=== PATIENT | female | born 1930 | race Caucasian/White ===

== ENCOUNTER → 2016-09-06 | Outpatient (CLI) | payer MEDICARE ==
[~2016-09-06] MED LIST: /FENT25PA TD; /ONDA4TA OR; /PANT40TA PO; /PREG50CA PO; ACET500C OR; ALPR0.5T3 OR; ASPI1TAB PO; ASPI81TA83 OR; CALC600T7 PO; CALCTAB68 PO; CELE20TA OR; CELE20TA PO; CETI10TA PO; CITA10TA2 PO; CITA10TA5 PO; FELO5TAB OR; FELO5TAB3 PO; FLORCAP10 PO; FLUTISP; GABA100C PO; GABA300C2 PO; GAS X PO; IBUP200C PO; IBUP600T26 OR; IBUP60TA PO; IBUPPOW25 PO; IMIP25TA2 PO; ISOVUE-M 300 61% 15ML VIAL (Q9967) As Ordered ONE; LIDO5TD TD; LIDOCAINE 1% SDV INJ 30 ML VIAL As Ordered ONE; LOPR50TA PO; META800T82 PO; METO25TAB PO; METO50TA4 OR; METOPROLOL TART 25 MG TABLET PO ONE; NEUR300C PO; OYST500T OR; PRIL20CA OR; SENN1TAB2 PO; SOMA350T OR; TYLE325T5 PO; TYLE650T35 PO; VISITAB6 PO; XANA0.25 PO; ZANA4TAB PO; [UNRECOGNIZED DRUG - OTHER]; ambien PO; depression med PO; diazePAM 5 MG TAB As Ordered ONE; fluticasone; methylPREDNISolone SUSP 40 MG/ML (DEPO-medrol) VIAL (J1030) As Ordered ONE
--- NOTE | 2016-09-06 14:07 | REP ---
LUMBAR SPINE SERIES: FOUR VIEWS LIMITED STUDY. HISTORY: Lumbar epidural steroid injection for pain. 20 seconds of fluoroscopy time is reported. FINDINGS: A sequence of four fluoroscopically-obtained intraprocedural spot radiographs of the lumbar spine document needle position and contrast injection associated with lumbar spine epidural injection procedure. Signed by Sagar Siu MD 09/06/2016 02:58 P
--- NOTE | 2016-09-09 02:03 | ECWPNPC ---
PATIENT NAME: SHELBIE CORTEZ : 1930 GENDER: FEMALE VISIT DATE: 09/06/2016 DISCHARGE DATE: 09/06/168 VISIT LOCKED DATE TIME: PHYSICIAN: EVAN ORTEGA RESOURCE: EVAN ORTEGA REASON FOR APPOINTMENT 1. LESI HISTORY OF PRESENT ILLNESS HISTORY OF PRESENT ILLNESS: PAIN THE PATIENT DESCRIBES THE PAIN... FALL RISK SCREENING: SCREENING :NO FALLS IN THE PAST YEAR CURRENT MEDICATIONS TAKING TYLENOL 500 MG TABLET 2 TABLET NEEDED ORALLY 3 TIMES A DAY NEEDED, NOTES: 09-05-16 2100 TAKING IBUPROFEN 200 MG TABLET 3 TABLET NEEDED ORALLY 3 TIMES A DAY NEEDED, NOTES: NONE RECENT TAKING CALCIUM 600 MG TABLET 1 TABLET WITH MEALS ORALLY TWICE A DAY, NOTES: 09-05-161699 TAKING METOPROLOL SUCCINATE ER 25 MG TABLET EXTENDED RELEASE 24 HOUR 1 TABLET ORALLY TWICE A DAY, NOTES: 09-05-161699 TAKING FELODIPINE ER 5 MG TABLET EXTENDED RELEASE 24 HOUR 1 TABLET ORALLY ONCE A DAY, NOTES: 09-06-16 0600 TAKING CITALOPRAM HYDROBROMIDE 10 MG TABLET 1 TABLET ORALLY ONCE A DAY, NOTES: 09-06-161699 TAKING ASPIRIN ADULT LOW STRENGTH 81 MG TABLET DELAYED RELEASE 1 TABLET ORALLY ONCE A DAY, NOTES: 09-05-161699 TAKING VISION FORMULA TABLET 1 TABLET ORALLY DAILY, NOTES: 09-05-161699 TAKING GAS-X 125 MG CAPSULE 1 CAPSULE AFTER MEALS AND AT BEDTIME NEEDED ORALLY FOUR TIMES A DAY, NOTES: NONE TAKING PROBIOTIC CAPSULE 1 TABLET ORALLY DAILY, NOTES: 09-05-16 TAKING GABAPENTIN 100 MG CAPSULE DIRECTED ORALLY THREE TIMES DAILY FOR PAIN, NOTES: 09-05-161699 NOT-TAKING CETIRIZINE HCL 10 MG TABLET 1 TABLET NEEDED ORALLY ONCE A DAY MEDICATION LIST REVIEWED AND RECONCILED WITH THE PATIENT PAST MEDICAL HISTORY TACHYCARDIA SYNCOPE IN 2013 - FIRST DEGREE AV BLOCK GERD HTN SPINAL STENOSIS ANXIETY MILD STROKE ARTHRITIS ALLERGIES MORPHINE SULFATE: HIVES: ALLERGY ENALAPRIL: NAUSEA/VOMITING: ALLERGY ULTRAM: NAUSEA/VOMITING: ALLERGY BENICAR: NAUSEA/VOMITING: ALLERGY CODEINE SULFATE: NAUSEA: ALLERGY CIPROFLOXACIN: NAUSEA: ALLERGY SULFA (FOR ALLERGY USE ONLY): NAUSEA: ALLERGY BACTRIM: NAUSEA: ALLERGY OXYCODONE-ACETAMINOPHEN: NAUSEA/VOMITING: SIDE EFFECTS SOCIAL HISTORY GENERAL: TOBACCO USE ARE YOU A:NONSMOKER LEARNING BARRIERS / SPECIAL NEEDS ORIENTED TO PLAN OF CARE: PATIENT, PAIN MANAGEMENT PATIENT, ORIENTED TO PLAN OF CARE: PATIENT, PAIN MANAGEMENT PATIENT. NEW PATIENT PAIN DIARY TODAY'S VISITNOTES FROM 0-10, WHAT LEVEL IS YOUR PAIN TODAY?0 PAIN CLINIC PFS, CLERGY, PUBLIC HEALTH REFERRALS PFS REFERRAL NEEDED?NO CLERGY REFERRAL NEEDED?NO PUBLIC HEALTH REFERRAL NEEDED?NO WAS THE PROVIDER NOTIFIED OF ANY PERTINENT INFO?NO PFS REFERRAL NEEDED?NO CLERGY REFERRAL NEEDED?NO PUBLIC HEALTH REFERRAL NEEDED?NO WAS THE PROVIDER NOTIFIED OF ANY PERTINENT INFO?NO HOSPITALIZATION/MAJOR DIAGNOSTIC PROCEDURE SEE ABOVE REVIEW OF SYSTEMS CONSTITUTIONAL: ANY CHANGE IN YOUR MEDICAL CONDITION? NO . CHILLS NO . FEVER NO . INFECTION: DO YOU HAVE NEW INFECTIONS? NO . DO YOU HAVE HISTORY OF MRSA? NO . MUSCULOSKELETAL: ANY NEW PATTERNS OF PAIN OR NUMBNESS? NO . GASTROENTEROLOGY: ANY NEW CHANGE IN BOWEL CONTROL? NO . GENITOURINARY: ANY NEW CHANGE IN BLADDER CONTROL? NO . IS THERE A CHANCE YOU COULD BE ? NO . HEMATOLOGY/LYMPH: DO YOU TAKE ANY BLOOD THINNERS? (FOR EXAMPLE- COUMADIN, PLAVIX, AGGRENOX, PLATEL, PRADAXA, OR XARELTO) NO . WHEN WAS YOUR LAST DOSE? DATE: TIME: . NEUROLOGY: HAVE YOU FALLEN IN THE PAST 6 MONTHS? NO . ANY NEW EXTREMITY NUMBNESS OR WEAKNESS? NO . CARDIOLOGY: DO YOU HAVE A PACEMAKER OR DEFIBRILLATOR? NO . RESPIRATORY: HAVE YOU BEEN SICK IN THE PAST WEEK? NO . FEVER NO . FLU LIKE SYMPTOMS? NO . COUGH NO . INTEGUMENTARY: DO YOU HAVE ANY RASHES OR OPEN SORES? NO . ALLERGIC/IMMUNO: ARE YOU ALLERGIC TO SHELLFISH OR IV DYE? NO . ANY NEW ALLERGIES? NO . PSYCHIATRIC: DO YOU HAVE THOUGHTS OF HURTING YOURSELF OR SOMEONE ELSE? NO . ARE YOU ABUSED, NEGLECTED, OR IN AN UNSAFE ENVIRONMENT? NO . ENDOCRINOLOGY: ARE YOU DIABETIC? NO . OTHER: DO YOU NEED ANY PRESCRIPTIONS? NO . IF YES, PLEASE LIST: ____ . ANY NEW PROBLEMS WITH YOUR MEDICATIONS? NO . WHEN DID YOU LAST EAT? 09-05-16 1800 . WHEN DID YOU LAST DRINK? 09-05-16 2200 . WHAT DID YOU LAST DRINK? WATER . NAME OF PERSON DRIVING YOU HOME? MARIA ESTHER GRIFFITH . DO YOU HAVE ANY OTHER QUESTIONS OR CONCERNS NO . REVIEWED BY: PROVIDER: . VITAL SIGNS WT 138 LBS, HT 61 IN, BMI 26.07 INDEX, BP 145/89 MM HG, REPEAT BP 180/92 MM HG, HR 89 /MIN, RR 18 /MIN, TEMP 97.8 F, OXYGEN SAT % 97%, NA INITIALS SC 09:19, REVIEWED BY: CMBP RECHECK AFTER PROCEDURE- R ARM 184/99, L ARM 194/99- 1243 TL. ASSESSMENTS INTERVERTEBRAL DISC DISORDER WITH RADICULOPATHY OF LUMBAR REGION - M51.16 (PRIMARY) PROCEDURES PRE PROCEDURE DIAGNOSIS LUMBAR DISC DISORDER WITH RADICULOPATHY POST PROCEDURE DIAGNOSIS LUMBAR DISC DISORDER WITH RADICULOPATHY PROCEDURE LUMBAR EPIDURAL STEROID INJECTION UNDER FLUOROSCOPIC GUIDANCE SURGEON DR. EVAN ORTEGA RACEHORSE TRAINER NONE ANESTHESIA LOCAL PRE PROCEDURE NOTE THE PATIENT HAS A HISTORY OF CHRONIC LOW BACK PAIN. I EVALUATE THE PATIENT AND REVIEWED THE CHART. I WENT OVER THE RISKS, ALTERNATIVES, AND BENEFITS ASSOCIATED WITH THIS PROCEDURE. THE PATIENT WOULD LIKE TO PROCEED AND GIVE CONSENT TO PERFORMED THE PROCEDURE. THE PATIENT DENIES UNEXPLAINABLE WEIGHT LOSS, FEVER, CHILLS, OR NEW CHANGES IN URINARY OR BOWEL CONTROL DESCRIPTION OF PROCEDURE THE PATIENT WAS BROUGHT TO THE PROCEDURE ROOM AND PLACED IN THE PRONE POSITION. THE LUMBOSACRAL AREA WAS CLEANED WITH BETADINE SOLUTION AND DRAPED ASEPTICALLY. THE PROCEDURE WAS DONE UNDER STERILE CONDITIONS. I CHECKED LATERALITY AND THE LEVEL WHERE THE PROCEDURE WAS GOING TO BE PERFORMED WITH THE PATIENT AND THE SUPPORTING STAFF AT THE MOMENT OF THE TIME OUT IN THE PROCEDURE ROOM. UNDER FLUOROSCOPIC GUIDANCE, THE TARGET POINT WAS SELECTED AT THE INTERLAMINAR LEVEL OF T12-L1. LIDOCAINE WAS USED TO NUMB THE SKIN AND THE SUBCUTANEOUS TISSUE BELOW IT. EPIDURAL TUOHY NEEDLE, 17-GAUGE, WAS ADVANCED UNDER FLUOROSCOPIC GUIDANCE AND FOLLOWING PATIENT FEEDBACK UNTIL THE EPIDURAL SPACE WAS REACHED, 7 CM DEEP INTO THE SKIN BY THE LOSS OF RESISTANCE TECHNIQUE. ISOVUE M DYE 30%, 0.25 ML, WAS INJECTED SHOWING ADEQUATE SPREAD OF THE DYE. THEN, A SOLUTION OF 3 ML OF NORMAL SALINE WITH DEPO-MEDROL 60 MG WAS INJECTED SLOWLY FOLLOWING PATIENT FEEDBACK. THERE WAS NO EVIDENCE OF BLOOD, PARESTHESIA OR CEREBROSPINAL FLUID DURING THE PROCEDURE. THE PATIENT WAS SENT TO THE RECOVERY ROOM. THE PATIENT WAS MOVING THE EXTREMITIES AND DOING WELL. THERE WAS NO COMPLICATION DURING THE PROCEDURE. FLUOROSCOPY TIME WAS 18 SECONDS POST PROCEDURE NOTE THE PATIENT WILL BE SEEN IN A FOLLOW UP IN THE NEXT FEW WEEKS. INSTRUCTIONS WERE GIVEN, QUESTIONS WERE ANSWERED, AND THE PATIENT EXPRESSED UNDERSTANDING AND AGREES WITH THE PLAN. I, TREVOR BARON, DOCUMENTED THE ABOVE INFORMATION ACTING A SCRIBE FOR DR. ORTEGA. I, DR. ORTEGA, HAVE REVIEWED THE ABOVE DOCUMENT, SCRIBED BY TREVOR BARON, AND I VERIFY THAT IT IS ACCURATE DIAGNOSTIC IMAGING [facility] FLUORO GUIDE SPINE INJECTION (PAIN)[id number] PROCEDURE CODES 85257 LUMBAR/SACRAL W/ IMAGING 6045F RADXPS IN END [id number] PXD FOLLOW UP 3 WEEKS ELECTRONICALLY SIGNED BY EVAN ORTEGA MD ON 09/08/2016 AT 06:28 PM EST DISCLAIMER : THIS IS A VISIT SUMMARY EXTRACTED FROM THE [employer] CHART. IT IS NOT A COPY OF THE [employer] PROGRESS NOTE. MTDD
== END ==
LOC: M PAIN 09:10
PROVIDERS: ATTEND Anesthesiology
DX: G89.29 Other chronic pain (principal); M51.16 Intervertebral disc disorders with radiculopathy, lumbar region; I10 Essential (primary) hypertension; M48.00 Spinal stenosis, site unspecified; K21.9 Gastro-esophageal reflux disease without esophagitis; M19.90 Unspecified osteoarthritis, unspecified site; Z88.2 Allergy status to sulfonamides; Z88.8 Allergy status to other drugs, medicaments and biological substances; Z79.1 Long term (current) use of non-steroidal anti-inflammatories (NSAID); Z79.82 Long term (current) use of aspirin; Z79.899 Other long term (current) drug therapy; Z86.79 Personal history of other diseases of the circulatory system; Z86.73 Personal history of transient ischemic attack (TIA), and cerebral infarction without residual deficits
CPT/HCPCS: 62323; J1030; Q9967

== ENCOUNTER → 2016-09-20 | Outpatient (CLI) | payer MEDICARE ==
[~2016-09-20] MED LIST changes: -ISOVUE-M 300 61% 15ML VIAL (Q9967) As Ordered ONE; -LIDOCAINE 1% SDV INJ 30 ML VIAL As Ordered ONE; -METOPROLOL TART 25 MG TABLET PO ONE; -diazePAM 5 MG TAB As Ordered ONE; -methylPREDNISolone SUSP 40 MG/ML (DEPO-medrol) VIAL (J1030) As Ordered ONE
--- NOTE | 2016-10-02 00:12 | ECWPNPC ---
PATIENT NAME: SHELBIE CORTEZ : 1930 GENDER: FEMALE VISIT DATE: 09/20/2016 DISCHARGE DATE: 09/20/16954 VISIT LOCKED DATE TIME: PHYSICIAN: EVAN ORTEGA RESOURCE: EVAN ORTEGA REASON FOR APPOINTMENT 1. LOW BACK PAIN HISTORY OF PRESENT ILLNESS HISTORY OF PRESENT ILLNESS: PAIN THE PATIENT DESCRIBES THE PAIN... 85 YEAR OLD FEMALE PATIENT WITH HISTORY OF CHRONIC LOW BACK PAIN. PATIENT DESCRIBES THE PAIN THROBBING AND HAVING IT ALL THE TIME WITH A PAIN SCORE OF 8/10. PATIENT RECEIVED A LUMBAR EPIDURAL ON 09/06/16 AND STATES THAT IT DID NOT HELP WITH SIGNIFICANT PAIN RELIEF. MRS. CORTEZ STATES HER PAIN TO STARTED WAS A 9 BUT IT ONLY DROPPED TO AN 8. CURRENTLY THE PATIENT IS USING IBUPROFEN AND TYLENOL TO AID IN PAIN RELIEF DUE TO OTHER MEDICATIONS MAKING HER NAUSEOUS. PATIENT REPORTS NOT HAVING HER PSYCHOLOGICAL EVALUATION DONE AT THIS TIME. PATIENT STATES THAT ANY ACTIVITY INCREASES THE PAIN IN HER LOWER BACK AND AT THIS TIME THE ONLY THING THAT HELPS TO RELIEVE THE PAIN IS MEDICATION AND REST. PATIENT DENIES UNEXPLAINABLE WEIGHT LOSS, FEVER, CHILLS, NEW CHANGES ON HER URINARY OR BOWEL CONTROL. FALL RISK SCREENING: SCREENING :NO FALLS IN THE PAST YEAR CURRENT MEDICATIONS TAKING TYLENOL 500 MG TABLET 2 TABLET NEEDED ORALLY 3 TIMES A DAY NEEDED, NOTES: 09-05-162099 TAKING IBUPROFEN 200 MG TABLET 3 TABLET NEEDED ORALLY 3 TIMES A DAY NEEDED TAKING CALCIUM 600 MG TABLET 1 TABLET WITH MEALS ORALLY TWICE A DAY TAKING METOPROLOL SUCCINATE ER 25 MG TABLET EXTENDED RELEASE 24 HOUR 1 TABLET ORALLY TWICE A DAY TAKING FELODIPINE ER 5 MG TABLET EXTENDED RELEASE 24 HOUR 1 TABLET ORALLY ONCE A DAY TAKING CITALOPRAM HYDROBROMIDE 10 MG TABLET 1 TABLET ORALLY ONCE A DAY TAKING ASPIRIN ADULT LOW STRENGTH 81 MG TABLET DELAYED RELEASE 1 TABLET ORALLY ONCE A DAY TAKING VISION FORMULA TABLET 1 TABLET ORALLY DAILY TAKING GAS-X 125 MG CAPSULE 1 CAPSULE AFTER MEALS AND AT BEDTIME NEEDED ORALLY FOUR TIMES A DAY TAKING PROBIOTIC CAPSULE 1 TABLET ORALLY DAILY TAKING GABAPENTIN 100 MG CAPSULE DIRECTED ORALLY THREE TIMES DAILY FOR PAIN, NOTES: NOT HELPING NOT-TAKING CETIRIZINE HCL 10 MG TABLET 1 TABLET NEEDED ORALLY ONCE A DAY MEDICATION LIST REVIEWED AND RECONCILED WITH THE PATIENT PAST MEDICAL HISTORY TACHYCARDIA SYNCOPE IN 2012 - FIRST DEGREE AV BLOCK GERD HTN SPINAL STENOSIS ANXIETY MILD STROKE ARTHRITIS ALLERGIES MORPHINE SULFATE: HIVES: ALLERGY ENALAPRIL: NAUSEA/VOMITING: ALLERGY ULTRAM: NAUSEA/VOMITING: ALLERGY BENICAR: NAUSEA/VOMITING: ALLERGY CODEINE SULFATE: NAUSEA: ALLERGY CIPROFLOXACIN: NAUSEA: ALLERGY SULFA (FOR ALLERGY USE ONLY): NAUSEA: ALLERGY BACTRIM: NAUSEA: ALLERGY OXYCODONE-ACETAMINOPHEN: NAUSEA/VOMITING: SIDE EFFECTS SURGICAL HISTORY NO SURGICAL HISTORY DOCUMENTED. FAMILY HISTORY NO FAMILY HISTORY DOCUMENTED. SOCIAL HISTORY GENERAL: TOBACCO USE ARE YOU A:NONSMOKER LEARNING BARRIERS / SPECIAL NEEDS ORIENTED TO PLAN OF CARE: PATIENT, PAIN MANAGEMENT PATIENT, ORIENTED TO PLAN OF CARE: PATIENT, PAIN MANAGEMENT PATIENT. NEW PATIENT PAIN DIARY TODAY'S VISITNOTES FROM 0-10, WHAT LEVEL IS YOUR PAIN TODAY?0 PAIN CLINIC PFS, CLERGY, PUBLIC HEALTH REFERRALS PFS REFERRAL NEEDED?NO CLERGY REFERRAL NEEDED?NO PUBLIC HEALTH REFERRAL NEEDED?NO WAS THE PROVIDER NOTIFIED OF ANY PERTINENT INFO?NO PFS REFERRAL NEEDED?NO CLERGY REFERRAL NEEDED?NO PUBLIC HEALTH REFERRAL NEEDED?NO WAS THE PROVIDER NOTIFIED OF ANY PERTINENT INFO?NO HOSPITALIZATION/MAJOR DIAGNOSTIC PROCEDURE SEE ABOVE REVIEW OF SYSTEMS CONSTITUTIONAL: ANY CHANGE IN YOUR MEDICAL CONDITION? NO . CHILLS NO . FEVER NO . INFECTION: DO YOU HAVE NEW INFECTIONS? NO . DO YOU HAVE HISTORY OF MRSA? NO . MUSCULOSKELETAL: ANY NEW PATTERNS OF PAIN OR NUMBNESS? NO . GASTROENTEROLOGY: ANY NEW CHANGE IN BOWEL CONTROL? NO . GENITOURINARY: ANY NEW CHANGE IN BLADDER CONTROL? NO . IS THERE A CHANCE YOU COULD BE ? NO . HEMATOLOGY/LYMPH: DO YOU TAKE ANY BLOOD THINNERS? (FOR EXAMPLE- COUMADIN, PLAVIX, AGGRENOX, PLATEL, PRADAXA, OR XARELTO) NO . WHEN WAS YOUR LAST DOSE? DATE: TIME: . NEUROLOGY: HAVE YOU FALLEN IN THE PAST 6 MONTHS? NO . ANY NEW EXTREMITY NUMBNESS OR WEAKNESS? NO . CARDIOLOGY: DO YOU HAVE A PACEMAKER OR DEFIBRILLATOR? NO . RESPIRATORY: HAVE YOU BEEN SICK IN THE PAST WEEK? NO . FEVER NO . FLU LIKE SYMPTOMS? NO . COUGH NO . INTEGUMENTARY: DO YOU HAVE ANY RASHES OR OPEN SORES? NO . ALLERGIC/IMMUNO: ARE YOU ALLERGIC TO SHELLFISH OR IV DYE? NO . ANY NEW ALLERGIES? NO . PSYCHIATRIC: DO YOU HAVE THOUGHTS OF HURTING YOURSELF OR SOMEONE ELSE? NO . ARE YOU ABUSED, NEGLECTED, OR IN AN UNSAFE ENVIRONMENT? NO . ENDOCRINOLOGY: ARE YOU DIABETIC? NO . OTHER: DO YOU NEED ANY PRESCRIPTIONS? NO . IF YES, PLEASE LIST: ____ . ANY NEW PROBLEMS WITH YOUR MEDICATIONS? NO . WHEN DID YOU LAST EAT? ____ . WHEN DID YOU LAST DRINK? ____ . WHAT DID YOU LAST DRINK? ____ . NAME OF PERSON DRIVING YOU HOME? ____ . DO YOU HAVE ANY OTHER QUESTIONS OR CONCERNS NO . REVIEWED BY: PROVIDER: EVAN ORTEGA MD . VITAL SIGNS WT 141.2 LBS, HT 61 IN, BMI 26.68 INDEX, BP 160/89 MM HG, HR 70 /MIN, RR 16 /MIN, TEMP 97.2 F, OXYGEN SAT % 96, NA INITIALS TL 0846, REVIEWED BY: AD. EXAMINATION : PATIENT IS ALERT O X 3 AND COOPERATIVE. TENDERNESS IN THE LOWER BACK AND PARASPINAL MUSCLE GROUP. CT DONE ON 04/15/16 OF THE LUMBAR SPINE SHOWS SEVERE CANAL STENOSIS AT L1-L2 AND L2-L3 AND MODERATE STENOSIS AT L3-L4. CT OF THE THORACIC SPINE DONE ON 04/15/16 SHOWS DEGENERATIVE CHANGES BUT WITH ENOUGH ROOM FOR THE LEADS TO PASS THROUGH. ASSESSMENTS POSTLAMINECTOMY SYNDROME, NOT ELSEWHERE CLASSIFIED - M96.1 (PRIMARY) SPONDYLOSIS WITHOUT MYELOPATHY OR RADICULOPATHY, LUMBAR REGION - M47.816 SPONDYLOSIS WITHOUT MYELOPATHY OR RADICULOPATHY, LUMBOSACRAL REGION - M47.817 INTERVERTEBRAL DISC DISORDERS WITH RADICULOPATHY, LUMBAR REGION - M51.16 INTERVERTEBRAL DISC DISORDERS WITH RADICULOPATHY, LUMBOSACRAL REGION - M51.17 TREATMENT POSTLAMINECTOMY SYNDROME, NOT ELSEWHERE CLASSIFIED REFILL GABAPENTIN CAPSULE, 100 MG, 2 TABLET, ORALLY, THREE TIMES DAILY FOR PAIN MDD6, 30 DAY(S), 180, REFILLS 1, NOTES: NOT HELPING NOTES: WE DISCUSSED SEVERAL ISSUES WITH MRS. CORTEZ'S PAIN MANAGEMENT CASE. I WAS WITH THE PATIENT AND HER DAUGHTER IN THE FOLLOW UP ROOM FOR OVER 30 MINUTES MORE THAN HALF THE TIME WAS S DEDICATED TO COUNSELING HER CARE, REVIEWING MEDICATIONS, IN COORDINATION OF CARE. AT THIS TIME THE PATIENT WILL BEGIN TO USE ULTRACET TO SEE IF THAT WILL AID IN PAIN RELIEF. PATIENT WAS ADVISED TO STOP THE MEDICATION IF SHE BEGAN TO FEEL SICK OR HAVE ANY REACTIONS TO THE MEDICATION. PATIENT WILL ALMOST INCREASE HER GABAPENTIN TO 2 TABLETS 3 TIMES A DAY FOR A TOTAL OF 600 MG A DAY. PATIENT IS AWARE TO INCREASE THE MEDICATION AT A SLOW RATE AND DECREASE AT A SLOW RATE. I SPOKE WITH THE RADIOLOGIST ABOUT MRS. CORTEZ'S CT AND THE RADIOLOGIST BELIEVES THE SPACE FOR THE LEADS WILL BE VERY NARROW. I DISCUSSED WITH THE PATIENT THAT I DO NOT BELIEVE SHE IS A GOOD CANDIDATE FOR THE [facility] TRIAL DUE TO THIS NARROWING. HOWEVER, WE DISCUSSED INTERVENTIONAL OPTIONS, MEDICATION OPTIONS, ALONG WITH POSSIBILITY OF SURGERY. AT THIS TIME I WILL REFER THE PATIENT FOR A SURGICAL CONSULT OF HER BACK AND IN THE MEAN TIME WE WILL TRY FACET BLOCK TO SEE IF IT WILL AID IN PAIN RELIEF. WE DISCUSSED THE RISKS, BENEFITS, AND ALTERNATIVES OF THE INJECTION AND THE PATIENT WOULD LIKE TO PROCEED. INSTRUCTIONS WERE GIVEN, QUESTIONS WERE ANSWERED, PATIENT REPORTS UNDERSTANDING AND AGREES WITH THE PLAN. I, TREVOR BARON, DOCUMENTED THE ABOVE INFORMATION ACTING A SCRIBE FOR DR. ORTEGA. I HAVE REVIEWED THE ABOVE DOCUMENT, WRITTEN BY TREVOR DAVILA AND I VERIFY THAT IT IS ACCURATE. OTHERS START ULTRACET TABLET, 37.5-325 MG, 1 TABLETS NEEDED, ORALLY, EVERY 6 HRS FOR PAIN MDD4, 10 DAY(S), 40, REFILLS 0 PREVENTIVE MEDICINE PAIN CLINIC TEACHING: MEDICATIONS PRINTED INFORMATION GIVEN TO AND EXPLAINED TO PATIENT ON ULTRACET. PROCEDURE CODES FA211 ESTABILISHED PATIENT [facility] FACILITY CHARGE G8427 DOC MEDS VERIFIED W/PT OR RE G0130 PAIN ASSESS POS TOOL F/U PLAN DOC FOLLOW UP 3 WEEKS ELECTRONICALLY SIGNED BY EVAN ORTEGA MD ON 10/01/2016 AT 08:06 PM EST DISCLAIMER : THIS IS A VISIT SUMMARY EXTRACTED FROM THE [employer] CHART. IT IS NOT A COPY OF THE [employer] PROGRESS NOTE. MTDD
== END ==
LOC: M PAIN 09:00
PROVIDERS: ATTEND Anesthesiology
DX: Z09 Encounter for follow-up examination after completed treatment for conditions other than malignant neoplasm (principal); G89.29 Other chronic pain; M96.1 Postlaminectomy syndrome, not elsewhere classified; M47.816 Spondylosis without myelopathy or radiculopathy, lumbar region; M47.817 Spondylosis without myelopathy or radiculopathy, lumbosacral region; M51.16 Intervertebral disc disorders with radiculopathy, lumbar region; I10 Essential (primary) hypertension; M51.17 Intervertebral disc disorders with radiculopathy, lumbosacral region; K21.9 Gastro-esophageal reflux disease without esophagitis; M48.00 Spinal stenosis, site unspecified; M19.90 Unspecified osteoarthritis, unspecified site; F41.9 Anxiety disorder, unspecified; Z88.5 Allergy status to narcotic agent; Z88.2 Allergy status to sulfonamides; Z88.1 Allergy status to other antibiotic agents; Z88.8 Allergy status to other drugs, medicaments and biological substances; Z79.1 Long term (current) use of non-steroidal anti-inflammatories (NSAID); Z79.82 Long term (current) use of aspirin; Z86.79 Personal history of other diseases of the circulatory system; Z86.73 Personal history of transient ischemic attack (TIA), and cerebral infarction without residual deficits

== ENCOUNTER → 2016-10-03 | Outpatient (CLI) | payer MEDICARE ==
--- NOTE | 2016-10-04 23:38 | ECWPNPC ---
PATIENT NAME: SHELBIE CORTEZ : 1930 GENDER: FEMALE VISIT DATE: 10/03/2016 DISCHARGE DATE: 10/03/16 1620 VISIT LOCKED DATE TIME: PHYSICIAN: EVAN ORTEGA RESOURCE: EVAN ORTEGA REASON FOR APPOINTMENT 1. BACK HISTORY OF PRESENT ILLNESS HISTORY OF PRESENT ILLNESS: PAIN THE PATIENT DESCRIBES THE PAIN... 85 YEAR OLD FEMALE PATIENT WITH HISTORY OF CHRONIC BACK PAIN. PATIENT DESCRIBES THE PAIN THROBBING AND HAVING IT ALL THE TIME WITH A PAIN SCORE OF 8/10 ON TODAY'S VISIT. PATIENT STATES THAT SOMETIMES THE PAIN RADIATES FROM HER BACK DOWN TO HER LEGS, WITH MORE PAIN IN THE RIGHT LEG THAN IN THE LEFT LEG AND IT HAS BEEN OCCURRING MORE RECENTLY. PATIENT RECEIVED A LESI ON 09/06/2016 AND STATES THAT IT DID NOT WORK, AND THE PROCEDURE WAS VERY PAINFUL. PATIENT REPORTS THE ULTRACET MEDICATION PRESCRIBED ON THE LAST VISIT DOES NOT WORK. PATIENT REPORTS THAT GABAPENTIN TAKES THE EDGE OFF THE PAIN BUT THE PAIN IS STILL THERE. PATIENT DENIES UNEXPLAINABLE WEIGHT LOSS, FEVER, CHILLS, NEW CHANGES ON HER URINARY OR BOWEL CONTROL. FALL RISK SCREENING: SCREENING :NO FALLS IN THE PAST YEAR CURRENT MEDICATIONS TAKING ULTRACET 37.5-325 MG TABLET 1 TABLETS NEEDED ORALLY EVERY 6 HRS FOR PAIN MDD4 TAKING GABAPENTIN 100 MG CAPSULE 2 TABLET ORALLY THREE TIMES DAILY FOR PAIN MDD6, NOTES: NOT HELPING TAKING TYLENOL 500 MG TABLET 2 TABLET NEEDED ORALLY 3 TIMES A DAY NEEDED, NOTES: 09-05-162099 TAKING IBUPROFEN 200 MG TABLET 3 TABLET NEEDED ORALLY 3 TIMES A DAY NEEDED TAKING CALCIUM 600 MG TABLET 1 TABLET WITH MEALS ORALLY TWICE A DAY TAKING METOPROLOL SUCCINATE ER 25 MG TABLET EXTENDED RELEASE 24 HOUR 1 TABLET ORALLY TWICE A DAY TAKING FELODIPINE ER 5 MG TABLET EXTENDED RELEASE 24 HOUR 1 TABLET ORALLY ONCE A DAY TAKING CITALOPRAM HYDROBROMIDE 10 MG TABLET 1 TABLET ORALLY ONCE A DAY TAKING ASPIRIN ADULT LOW STRENGTH 81 MG TABLET DELAYED RELEASE 1 TABLET ORALLY ONCE A DAY TAKING VISION FORMULA TABLET 1 TABLET ORALLY DAILY TAKING GAS-X 125 MG CAPSULE 1 CAPSULE AFTER MEALS AND AT BEDTIME NEEDED ORALLY FOUR TIMES A DAY TAKING PROBIOTIC CAPSULE 1 TABLET ORALLY DAILY NOT-TAKING CETIRIZINE HCL 10 MG TABLET 1 TABLET NEEDED ORALLY ONCE A DAY MEDICATION LIST REVIEWED AND RECONCILED WITH THE PATIENT PAST MEDICAL HISTORY TACHYCARDIA SYNCOPE IN 2013 - FIRST DEGREE AV BLOCK GERD HTN SPINAL STENOSIS ANXIETY MILD STROKE ARTHRITIS ALLERGIES MORPHINE SULFATE: HIVES: ALLERGY ENALAPRIL: NAUSEA/VOMITING: ALLERGY ULTRAM: NAUSEA/VOMITING: ALLERGY BENICAR: NAUSEA/VOMITING: ALLERGY CODEINE SULFATE: NAUSEA: ALLERGY CIPROFLOXACIN: NAUSEA: ALLERGY SULFA (FOR ALLERGY USE ONLY): NAUSEA: ALLERGY BACTRIM: NAUSEA: ALLERGY OXYCODONE-ACETAMINOPHEN: NAUSEA/VOMITING: SIDE EFFECTS SURGICAL HISTORY NO SURGICAL HISTORY DOCUMENTED. FAMILY HISTORY NO FAMILY HISTORY DOCUMENTED. SOCIAL HISTORY GENERAL: TOBACCO USE ARE YOU A:NONSMOKER LEARNING BARRIERS / SPECIAL NEEDS ORIENTED TO PLAN OF CARE: PATIENT, PAIN MANAGEMENT PATIENT, ORIENTED TO PLAN OF CARE: PATIENT, PAIN MANAGEMENT PATIENT. NEW PATIENT PAIN DIARY TODAY'S VISITNOTES FROM 0-10, WHAT LEVEL IS YOUR PAIN TODAY?0 PAIN CLINIC PFS, CLERGY, PUBLIC HEALTH REFERRALS PFS REFERRAL NEEDED?NO CLERGY REFERRAL NEEDED?NO PUBLIC HEALTH REFERRAL NEEDED?NO WAS THE PROVIDER NOTIFIED OF ANY PERTINENT INFO?NO PFS REFERRAL NEEDED?NO CLERGY REFERRAL NEEDED?NO PUBLIC HEALTH REFERRAL NEEDED?NO WAS THE PROVIDER NOTIFIED OF ANY PERTINENT INFO?NO HOSPITALIZATION/MAJOR DIAGNOSTIC PROCEDURE SEE ABOVE REVIEW OF SYSTEMS CONSTITUTIONAL: ANY CHANGE IN YOUR MEDICAL CONDITION? NO . CHILLS YES &QUOT;BECAUSE OF MY UTI&QUOT; . FEVER NO . INFECTION: DO YOU HAVE NEW INFECTIONS? YES UTI-ON ANTIBIOTICS BUT UNSURE OF THE NAME OF THE MED. . DO YOU HAVE HISTORY OF MRSA? NO . MUSCULOSKELETAL: ANY NEW PATTERNS OF PAIN OR NUMBNESS? NO . GASTROENTEROLOGY: ANY NEW CHANGE IN BOWEL CONTROL? NO . GENITOURINARY: ANY NEW CHANGE IN BLADDER CONTROL? NO . IS THERE A CHANCE YOU COULD BE ? NO . HEMATOLOGY/LYMPH: DO YOU TAKE ANY BLOOD THINNERS? (FOR EXAMPLE- COUMADIN, PLAVIX, AGGRENOX, PLATEL, PRADAXA, OR XARELTO) NO . WHEN WAS YOUR LAST DOSE? DATE: TIME: . NEUROLOGY: HAVE YOU FALLEN IN THE PAST 6 MONTHS? NO . ANY NEW EXTREMITY NUMBNESS OR WEAKNESS? NO . CARDIOLOGY: DO YOU HAVE A PACEMAKER OR DEFIBRILLATOR? NO . RESPIRATORY: HAVE YOU BEEN SICK IN THE PAST WEEK? YES UTI . FEVER NO . FLU LIKE SYMPTOMS? NO . COUGH NO . INTEGUMENTARY: DO YOU HAVE ANY RASHES OR OPEN SORES? NO . ALLERGIC/IMMUNO: ARE YOU ALLERGIC TO SHELLFISH OR IV DYE? NO . ANY NEW ALLERGIES? NO . PSYCHIATRIC: DO YOU HAVE THOUGHTS OF HURTING YOURSELF OR SOMEONE ELSE? NO . ARE YOU ABUSED, NEGLECTED, OR IN AN UNSAFE ENVIRONMENT? NO . ENDOCRINOLOGY: ARE YOU DIABETIC? NO . OTHER: DO YOU NEED ANY PRESCRIPTIONS? NO . IF YES, PLEASE LIST: ____ . ANY NEW PROBLEMS WITH YOUR MEDICATIONS? NO . WHEN DID YOU LAST EAT? ____ . WHEN DID YOU LAST DRINK? ____ . WHAT DID YOU LAST DRINK? ____ . NAME OF PERSON DRIVING YOU HOME? ____ . DO YOU HAVE ANY OTHER QUESTIONS OR CONCERNS NO . REVIEWED BY: PROVIDER: EVAN ORTEGA MD . VITAL SIGNS WT 141 LBS, HT 61 IN, BMI 26.64 INDEX, BP 168/88 MM HG, HR 76 /MIN, RR 16 /MIN, TEMP 97.4 F, OXYGEN SAT % 98, NA INITIALS TL 1505, REVIEWED BY: MLF. EXAMINATION : PATIENT IS ALERT O X 3 AND COOPERATIVE. TENDERNESS IN THE LOWER BACK AND PARASPINAL MUSCLE GROUP. CT DONE ON 04/15/16 OF THE LUMBAR SPINE SHOWS SEVERE CANAL STENOSIS AT L1-L2 AND L2-L3 AND MODERATE STENOSIS AT L3-L4. CT OF THE THORACIC SPINE DONE ON 04/15/16 SHOWS DEGENERATIVE CHANGES BUT WITH ENOUGH ROOM FOR THE LEADS TO PASS THROUGH. 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 CORTEZ'S PAIN MANAGEMENT CASE. AT THIS TIME I WILL INCREASE THE DOSAGE FOR GABAPENTIN TO 300 MG AND 3 TIMES A DAY FOR THE NEUROPATHIC PAIN RADIATING DOWN TO HER LEGS. PATIENT WILL START ON TRAMADOL FOR THE PAIN IN HER BACK. I INFORMED THE PATIENT TO USE TRAMADOL ONLY NEEDS AND ONE OF THE POTENTIAL SIDE EFFECTS IS CONSTIPATION. PATIENT IS A GOOD CANDIDATE FOR A LUMBAR FACET BLOCK AND THAT WE CAN PROVIDE IV SEDATION. PATIENT STATES THAT FOR NOW SHE WILL LIKE TO CONTINUE WITH MEDICATION MANAGEMENT. I DISCUSSED WITH THE PATIENT THAT ONCE WE HAVE HER MEDICATION MORE STABLE SHE WILL START TO SEE ONE OF THE NURSE PRACTITIONERS. PATIENT TO FOLLOW UP WITH ME IN 4 WEEKS. INSTRUCTIONS WERE GIVEN, QUESTIONS WERE ANSWERED, PATIENT REPORTS UNDERSTANDING AND AGREES WITH THE PLAN. I, TAE YANG, DOCUMENTED THE ABOVE INFORMATION ACTING A SCRIBE FOR DR. ORTEGA. I HAVE REVIEWED THE ABOVE DOCUMENT, WRITTEN BY TAE YANG SCRIBE AND I VERIFY THAT IT IS ACCURATE. OTHERS START TRAMADOL HCL TABLET, 50 MG, 1 TO 2 TABLET NEEDED, ORALLY FOR PAIN, EVERY 6 HRS MDD6, 30 DAY(S), 180, REFILLS 0 PROCEDURE CODES FA211 ESTABILISHED PATIENT [facility] FACILITY CHARGE [id number] PAIN ASSESS POS TOOL F/U PLAN DOC [id number] DOC MEDS VERIFIED W/PT OR RE FOLLOW UP 4 WEEKS ELECTRONICALLY SIGNED BY EVAN ORTEGA MD ON 10/04/2016 AT 07:35 PM EST DISCLAIMER : THIS IS A VISIT SUMMARY EXTRACTED FROM THE [employer] CHART. IT IS NOT A COPY OF THE [employer] PROGRESS NOTE. LEIGHA
== END ==
LOC: M PAIN 14:40
PROVIDERS: ATTEND Anesthesiology
DX: Z09 Encounter for follow-up examination after completed treatment for conditions other than malignant neoplasm (principal); G89.29 Other chronic pain; M96.1 Postlaminectomy syndrome, not elsewhere classified; M47.816 Spondylosis without myelopathy or radiculopathy, lumbar region; M47.817 Spondylosis without myelopathy or radiculopathy, lumbosacral region; M51.16 Intervertebral disc disorders with radiculopathy, lumbar region; M51.17 Intervertebral disc disorders with radiculopathy, lumbosacral region; K21.9 Gastro-esophageal reflux disease without esophagitis; I10 Essential (primary) hypertension; M48.00 Spinal stenosis, site unspecified; F41.9 Anxiety disorder, unspecified; M19.90 Unspecified osteoarthritis, unspecified site; Z88.5 Allergy status to narcotic agent; Z88.8 Allergy status to other drugs, medicaments and biological substances; Z88.2 Allergy status to sulfonamides; Z79.1 Long term (current) use of non-steroidal anti-inflammatories (NSAID); Z79.82 Long term (current) use of aspirin; Z79.899 Other long term (current) drug therapy; Z86.73 Personal history of transient ischemic attack (TIA), and cerebral infarction without residual deficits; Z86.79 Personal history of other diseases of the circulatory system

== ENCOUNTER 2016-10-16 12:45 | Emergency (ER) | payer MEDICARE ==
[2016-10-16] MEDS ORDERED: MORPHINE 2 MG/ML 1ML SYRINGE As Ordered ONE (13:13)
[2016-10-16] MEDS ORDERED: ONDANSETRON 4MG/2ML VIAL (J2405) As Ordered ONE (13:13)
[2016-10-16 13:36] LABS: BASO % 0.4 % (0.0-1.0); EOS # 0.1 K/mm3 (0.0-0.50); EOS % 1.5 % (0.0-3.0); LARGE UNSTAINED CELL # 0.1 K/mm3 (0.0-0.4); LARGE UNSTAINED CELL % 1.4 % (0.0-4.0); LYMPH # 1.1 K/mm3 (1.5-4.5); LYMPH % 22.2 % (24.0-44.0); MEAN CORPUSCULAR HEMOGLOBIN 34.6 pg (27.0-33.0); MEAN CORPUSCULAR HGB CONC 34.5 g/dl (32.0-36.5); MEAN CORPUSCULAR VOLUME 100.3 fl (80.0-96.0); MONO # 0.3 K/mm3 (0.0-0.8); NEUTROPHILS # 3.3 K/mm3 (1.8-7.7); NEUTROPHILS % 67.5 % (36.0-66.0); PLATELET COUNT, AUTOMATED 264 k/mm3 (150-450); RED CELL DISTRIBUTION WIDTH 12.1 % (11.5-14.5); WHITE BLOOD COUNT 4.8 K/mm3 (4.0-10.0)
[2016-10-16] MEDS ORDERED: fentaNYL 100 MCG/2 ML INJECTION (J3010) As Ordered ONE (13:42)
[2016-10-16 13:59] LABS: ALBUMIN 3.9 GM/DL (3.2-5.2); ALBUMIN/GLOBULIN RATIO 1.08 (1.00-1.93); ALKALINE PHOSPHATASE 102 U/L (45-117); ALT/SGPT 20 U/L (12-78); AMYLASE 51 U/L (25-115); ANION GAP 8 MEQ/L (8-16); AST/SGOT 20 U/L (15-37); BILIRUBIN,DIRECT < 0.1 MG/DL (0.0-0.2); BILIRUBIN,TOTAL 0.3 MG/DL (0.2-1.0); CALCIUM LEVEL 9.1 MG/DL (8.8-10.2); CARBON DIOXIDE LEVEL 27 MEQ/L (21-32); CHLORIDE LEVEL 104 MEQ/L (98-107); CREATININE FOR GFR 0.78 MG/DL (0.55-1.02); GLOMERULAR FILTRATION RATE > 60.0 (>32); GLUCOSE, FASTING 105 MG/DL (83-110); POTASSIUM SERUM 3.9 MEQ/L (3.5-5.1); SODIUM LEVEL 139 MEQ/L (136-145); TOTAL PROTEIN 7.5 GM/DL (6.4-8.2)
[2016-10-16 14:00] LABS: BLOOD UREA NITROGEN 15 MG/DL (7-18)
[2016-10-16] MEDS ORDERED: ISOVUE-370 76% 100ML VIAL (Q9967) As Ordered ONE (14:05)
--- NOTE | 2016-10-16 14:36 | REP ---
Clinical: Generalized abdominal pain. Technique: Axial contrast enhanced images from the lung bases to the pubic symphysis using oral and 100 ml Isovue 370 intravenous contrast material with coronal and sagittal re-formations. Comparison: 06/13/2010. Findings: Lung bases clear. Visualized heart and pericardium normal. Liver, spleen, pancreas, bilateral adrenal glands are normal. Kidneys demonstrate cortical atrophic change without hydronephrosis. The patient is status post cholecystectomy. The enteric system demonstrates diverticulosis without obstruction or acute inflammatory process. Pelvis demonstrates normal bladder and evidence for prior hysterectomy. Small fat containing left inguinal hernia. No ascites. No adenopathy. No mass lesion. Abdominal aorta and vasculature demonstrates atherosclerotic change without aneurysm. Musculoskeletal structures demonstrate degenerative changes. Impression: No acute intra-abdominal or pelvic pathology appreciated. Diverticulosis without acute diverticulitis. Small fat containing left inguinal hernia. No ascites. Signed by Miguel Decker MD 10/16/2016 02:27 P
[2016-10-16] MEDS ORDERED: SUCRALFATE 1 GM TAB As Ordered ONE (14:48)
[2016-10-16] MEDS ORDERED: ALPRAZolam 0.25 MG TAB As Ordered ONE (15:27)
--- NOTE | 2016-10-16 17:15 | EDDOCDS ---
Physician Documentation [facility] Name: Fabiana Roche Age: 86 yrs Sex: Female : 1930 Arrival Date: 10/16/2016 Time: 12:45 Bed 8 Private MD: Delta Byers Disposition: 10/16/16 17:00 Discharged to Home/Self Care. Impression: Upper abdominal pain, unspecified. - Condition is Stable. - Discharge Instructions: Abdominal Pain, Adult, Gastritis, Adult. - Prescriptions for Carafate 100 mg/mL Oral suspension - take 10 milliliter by ORAL route 4 times per day on an empty stomach 1 hour before meals and at bedtime; 300 milliliter. Pepcid 20 mg Oral Tablet - take 1 tablet by ORAL route every 12 hours for 10 days; 20 tablet. Xanax 0.25 mg Oral Tablet - take 1 tablet by ORAL route every 8 hours As needed MDD: 3 tabs; 10 tablet. - Medication Reconciliation, Local Pharmacy Hours form. - Follow up: Delta Byers MD; When: 2 - 3 days. - Problem is new. - Symptoms are resolved. Historical: - Allergies: Morphine (Hives); SULFA (SULFONAMIDES); Codeine Sulfate; - Home Meds: 1. Vision Formula (with lutein) oral Unknown daily 2. aspirin 81 mg Oral TbEC 1 tab once daily 3. Calcium + Vitamin D Oral 2 tab twice a day 4. metoprolol tartrate 25 mg Oral tab 1 tab 2 times per day 5. ibuprofen 600 mg Oral tab 1 tab 3 times per day 6. citalopram 20 mg oral tab 1 tab once daily 7. felodipine 5 mg oral Tb24 1 tab once daily 8. Xanax 0.5 mg Oral tab 3 times per day as needed 9. gabapentin 100 mg Oral cap Unknown - PMHx: Anxiety; Hypertension; Chronic Back pain; incontinency; CVA; mitral valve prolapse; - PSHx: back surgery; left hip surgery; Hysterectomy; Cholecystectomy; bladder stimulator; - Social history: Smoking status: Patient states was never smoker of tobacco. No barriers to communication noted, The patient speaks fluent Polish. - Family history: Not pertinent. - : The pt / caregiver states he / she is not on anticoagulants. Home medication list is obtained from the patient. - Exposure Risk Screening:: None identified. Vital Signs: 10/16 12:47 BP 208 / 108 RA Sitting (auto/reg); Pulse 81; Resp 18; Temp 98.4(O); Pulse Ox 99% on jrd R/A; Weight 64.86 kg / 142.99 lbs (R); Height 5 ft. 1 in. (154.94 cm) (R); Pain 8/10; 13:26 BP 207 / 98 (auto/); jmk 13:27 Pulse 64 MON; Pulse Ox 96% ; jmk 13:41 BP 185 / 98 (auto/); rs3 13:42 Pulse 60 MON; Pulse Ox 93% ; rs3 13:56 BP 168 / 86 (auto/); jmk 13:57 Pulse 58 MON; Pulse Ox 93% ; jmk 15:27 BP 231 / 102 (auto/); jmk 15:27 Pulse 64 MON; Pulse Ox 97% ; jmk 16:42 Pulse 112 MON; Pulse Ox 92% ; jmk 16:43 BP 126 / 72 (auto/); jmk 16:46 BP 195 / 95; Pulse 63; Resp 18; jmk 17:11 BP 200 / 100; Pulse 66; Resp 16; Temp 98.0; Pulse Ox 98% ; Pain 5/10; jmk 12:47 Body Mass Index 27.02 (64.86 kg, 154.94 cm) jrd MDM: 13:05 Undress patient appropriately for examination ordered. sd1 13:06 morphine 2 mg IVP every 5 minutes; Document pain score/vitals after each dose (Hold if sd1 SBP < 90mmHg) x5 ordered. 13:06 Ondansetron 4 mg IVP once ordered. sd1 13:06 Amylase Ordered. EDMS 13:06 Basic Metabolic Profile Ordered. EDMS 13:06 NS 0.9% 1000 ml IV at 100 mL/hr continuous ordered. sd1 13:06 CBC with Diff Ordered. EDMS 13:06 Cardiac Injury Profile Ordered. EDMS 13:06 Lipase Ordered. EDMS 13:06 Liver Profile Ordered. EDMS 13:06 Prothrombin Time Profile\E\INR Ordered. EDMS 13:06 Troponin Ordered. EDMS 13:06 Type & Screen Ordered. EDMS 13:06 NOTHING BY MOUTH+DIET ordered. EDMS 13:07 ECG WITH READING ER PHYS+CARDIAG ordered. EDMS 13:27 fentaNYL (PF) 25 mcg IVP once ordered. sd1 13:38 Recheck B/P ordered. sd1 14:03 CBC with Diff Reviewed. sd1 14:03 Amylase Reviewed. sd1 14:03 Basic Metabolic Profile Reviewed. sd1 14:03 Cardiac Injury Profile Reviewed. sd1 14:03 Lipase Reviewed. sd1 14:03 Liver Profile Reviewed. sd1 14:03 Troponin Reviewed. sd1 14:05 CT ABD & PELVIS: IV Contrast Only Ordered. EDMS 14:44 Sucralfate 1 grams PO once ordered. sd1 14:46 Prothrombin Time Profile\E\INR Reviewed. sd1 14:46 Type & Screen Reviewed. sd1 14:46 CT ABD & PELVIS: IV Contrast Only Reviewed. sd1 15:06 CLEAR LIQUID+DIET ordered. EDMS 15:25 ALPRAZolam Tablet 0.5 mg PO once ordered. sd1 16:39 Financial registration complete. gjb 17:09 [facility] Payment Agreement was scanned into [employer] and attached to record. gjb Administered Medications: 13:26 Not Given (hivess): morphine 2 mg IVP every 5 minutes; Document pain score/vitals after jmk each dose (Hold if SBP < 90mmHg) x5 13:26 Drug: Ondansetron 4 mg Route: IVP; Site: left antecubital; jmk 13:26 Drug: NS 0.9% 1000 ml Route: IV; Rate: 100 mL/hr; Site: left antecubital; jmk 13:54 Drug: fentaNYL (PF) 25 mcg [fentanyl (PF) 50 mcg/mL injection solution (0.5 mL)] Route: rs3 IVP; Site: left antecubital; 15:00 Drug: Sucralfate 1 grams [sucralfate 1 gram tablet (1 tabs)] Route: PO; jmk 15:34 Drug: ALPRAZolam 0.5 mg [alprazolam 0.25 mg tablet (2 tabs)] Route: PO; jmk 17:02 CANCELLED (Other Intervention Used): GI Cocktail - (Alum-Mag Hydroxide-Simeth sd1 Suspension 225 mg-200 mg-25 mg/5 mL 30 ml, Lidocaine Liquid 2 % 10 ml, Hyoscyamine Liquid 10 ml) PO once; Pre-mixed 50mL unit dose Signatures: Dispatcher [employer] EDMS Noah Rebekah, MD MD sd1 Ulises Greenberg,RN RN jmk Suad Jacinto,RN RN js13 Bina Robertson Rosemary RN rs3 The chart was reviewed and I authenticate all verbal orders and agree with the evaluation and treatment provided.Corrections: (The following items were deleted from the chart) 17:02 16:50 GI Cocktail - (Alum-Mag Hydroxide-Simeth 30 ml, Lidocaine 10 ml, Hyoscyamine 10 sd1 ml) PO once; Pre-mixed 50mL unit dose ordered. sd1 Attachments: 17:09 [facility] [place] Payment Agreement [email or web address]
--- NOTE | 2016-10-16 17:15 | EDDOCDS ---
Nurse's Notes [facility] Name: Fabiana Roche Age: 86 yrs Sex: Female : 1930 Arrival Date: 10/16/2016 Time: 12:45 Bed 8 Private MD: Delta Byers Diagnosis: Upper abdominal pain, unspecified Presentation: 10/16 13:00 Presenting complaint: Patient states: Patient sent from Dr Bean office for js13 abdominal pain. Patient has had UTI in past and thought she had another. UA negative at office. Adult Sepsis Screening: The patient does not have new or worsening altered mentation. Patient's respiratory rate is less than 22. Systolic blood pressure is greater than 100. Patient has a qSOFA score of 0- Negative Sepsis Screen. Suicide/Homicide risk assessment- the patient denies having any suicidal and/or homicidal ideations and does not present with any other emotional, behavioral or mental health complaints. Status: Patient is not a multicultural services librarian or dependent. Transition of care: patient was received from a primary care office; Dr bean. 13:00 Acuity: ADAN Level 3 js13 13:00 Method Of Arrival: Walkin/Carried/Asstd js13 Triage Assessment: 13:08 General: Appears Behavior is appropriate for age, cooperative. Pain: Location: abdomen js13 Pain currently is 8 out of 10 on a pain scale. Neurological: Level of Consciousness is awake, alert. GI: Abdomen is non- distended. Derm: Skin is pink, warm & dry. Historical: - Allergies: Morphine (Hives); SULFA (SULFONAMIDES); Codeine Sulfate; - Home Meds: 1. Vision Formula (with lutein) oral Unknown daily 2. aspirin 81 mg Oral TbEC 1 tab once daily 3. Calcium + Vitamin D Oral 2 tab twice a day 4. metoprolol tartrate 25 mg Oral tab 1 tab 2 times per day 5. ibuprofen 600 mg Oral tab 1 tab 3 times per day 6. citalopram 20 mg oral tab 1 tab once daily 7. felodipine 5 mg oral Tb24 1 tab once daily 8. Xanax 0.5 mg Oral tab 3 times per day as needed 9. gabapentin 100 mg Oral cap Unknown - PMHx: Anxiety; Hypertension; Chronic Back pain; incontinency; CVA; mitral valve prolapse; - PSHx: back surgery; left hip surgery; Hysterectomy; Cholecystectomy; bladder stimulator; - Social history: Smoking status: Patient states was never smoker of tobacco. No barriers to communication noted, The patient speaks fluent Malay. - Family history: Not pertinent. - : The pt / caregiver states he / she is not on anticoagulants. Home medication list is obtained from the patient. - Exposure Risk Screening:: None identified. Screenin:12 Screening information is obtained from the patient. Fall risk: No risks identified. jmk Assistance ADL's: requires no assistance with activities of daily living. Abuse/DV Screen: The patient / caregiver reports he/she is: not in a situation that causes fear, pain or injury. Nutritional screening: No deficits noted. home support is adequate. Assessment: 15:01 General: Appears skin warm and dry color satisfactory. withotu resp distress. chest jmk CTA. indicates upper abdominal discomfort. pain increases with palaption.. 15:03 General: Appears medicated for 6/10 discomfort to upper abd. Reports ABD is bloated. jmk soft with palpation. 16:43 General: states pain has decreased to 5/10 Hot tea has been taken and retained. jmk ambulated to BR x 2 with minimal increase in discomfort.. 17:12 General: Appears receptive to discharge. encouraged follow up withMD regarding bp . jmk casual presentation. abd remains soft and non distended . Vital Signs: 12:47 BP 208 / 108 RA Sitting (auto/reg); Pulse 81; Resp 18; Temp 98.4(O); Pulse Ox 99% on jrd R/A; Weight 64.86 kg (R); Height 5 ft. 1 in. (154.94 cm) (R); Pain 8/10; 13:26 BP 207 / 98 (auto/); jmk 13:27 Pulse 64 MON; Pulse Ox 96% ; jmk 13:41 BP 185 / 98 (auto/); rs3 13:42 Pulse 60 MON; Pulse Ox 93% ; rs3 13:56 BP 168 / 86 (auto/); jmk 13:57 Pulse 58 MON; Pulse Ox 93% ; jmk 15:27 BP 231 / 102 (auto/); jmk 15:27 Pulse 64 MON; Pulse Ox 97% ; jmk 16:42 Pulse 112 MON; Pulse Ox 92% ; jmk 16:43 BP 126 / 72 (auto/); jmk 16:46 BP 195 / 95; Pulse 63; Resp 18; jmk 17:11 BP 200 / 100; Pulse 66; Resp 16; Temp 98.0; Pulse Ox 98% ; Pain 5/10; jmk 12:47 Body Mass Index 27.02 (64.86 kg, 154.94 cm) d Vitals: 12:47 Log In Time: October 16, 2016 at 12:40. jrd 12:47 RN notified that patient meets Red Flag criteria. jrd ED Course: 12:46 Patient visited by Rahul Sanders PCA. jrd 12:46 Patient moved to Waiting jrd 12:47 Delta Byers MD is Private Physician. jrd 12:48 Patient visited by Rahul Sanders PCA. jrd 12:48 Rebekah Zamora MD is Attending Physician. sd1 12:48 Patient moved to 8 jrd 13:02 Triage Initiated js13 13:05 Patient visited by Rahul Sanders PCA. jrd 13:07 Patient visited by Rebekah Zamora MD. sd1 13:09 Patient visited by Suad Jacinto,AMANDA. js13 13:15 Inserted saline lock: 20 gauge in left antecubital area. jmk 13:20 EKG done. (by ED staff). Reviewed by Rebekah Zamora MD. jml1 13:54 Patient visited by Kaycee Ga,AMANDA. rs3 14:36 CT ABD & PELVIS: IV Contrast Only Returned. EDMS 15:15 Patient visited by Juan Manuel Agustin. jml1 16:23 Patient visited by Juan Manuel Agustin. jml1 16:45 Patient visited by Omid Linda PCA. jlf 16:46 Patient visited by Ulises Greenberg,AMANDA. jmk 17:00 Delta Byers MD is Referral Physician. sd1 17:09 [facility] [place] [place] Payment Agreement was scanned into [employer] and attached to record. gjb 17:12 The patient / caregiver is instructed regarding the plan of care and ED course. jmk 17:12 Discontinued lock intact, bleeding controlled, pressure dressing applied, No jmk redness/swelling at site. No procedures done that require assistance. Administered Medications: 13:26 Not Given (hivess): morphine 2 mg IVP every 5 minutes; Document pain score/vitals after [facility] each dose (Hold if SBP < 90mmHg) x5 13:26 Drug: Ondansetron 4 mg Route: IVP; Site: left antecubital; k 13:26 Drug: NS 0.9% 1000 ml Route: IV; Rate: 100 mL/hr; Site: left antecubital; k 13:54 Drug: fentaNYL (PF) 25 mcg [fentanyl (PF) 50 mcg/mL injection solution (0.5 mL)] Route: rs3 IVP; Site: left antecubital; 15:00 Drug: Sucralfate 1 grams [sucralfate 1 gram tablet (1 tabs)] Route: PO; [facility] 15:34 Drug: ALPRAZolam 0.5 mg [alprazolam 0.25 mg tablet (2 tabs)] Route: PO; k 17:02 CANCELLED (Other Intervention Used): GI Cocktail - (Alum-Mag Hydroxide-Simeth sd1 Suspension 225 mg-200 mg-25 mg/5 mL 30 ml, Lidocaine Liquid 2 % 10 ml, Hyoscyamine Liquid 10 ml) PO once; Pre-mixed 50mL unit dose Order Results: Lab Order: Amylase; SPEC'M 10/16/16 13:22 Test: AMYLASE; Value: 51; Range: 25-115; Units: U/L; Status: F Lab Order: Basic Metabolic Profile; SPEC'M 10/16/16 13:22 Test: GLUCOSE, FASTING; Value: 105; Range: 83-110; Units: MG/DL; Status: F Test: BLOOD UREA NITROGEN; Value: 15; Range: 7-18; Units: MG/DL; Status: F Test: CREATININE FOR GFR; Value: 0.78; Range: 0.55-1.02; Units: MG/DL; Status: F Test: GLOMERULAR FILTRATION RATE; Value: > 60.0; Range: >32; Status: F Test: SODIUM LEVEL; Value: 139; Range: 136-145; Units: MEQ/L; Status: F Test: POTASSIUM SERUM; Value: 3.9; Range: 3.5-5.1; Units: MEQ/L; Status: F Test: CHLORIDE LEVEL; Value: 104; Range: 98-107; Units: MEQ/L; Status: F Test: CARBON DIOXIDE LEVEL; Value: 27; Range: 21-32; Units: MEQ/L; Status: F Test: ANION GAP; Value: 8; Range: 8-16; Units: MEQ/L; Status: F Test: CALCIUM LEVEL; Value: 9.1; Range: 8.8-10.2; Units: MG/DL; Status: F Test Note: ; Units are mL/min/1.73 m2 Chronic Kidney Disease Staging per NKF: Stage I & II GFR >=60 Normal to Mildly Decreased Stage III GFR 30-59 Moderately Decreased Stage IV GFR 15-29 Severely Decreased Stage V GFR <15 Very Little GFR Left ESRD GFR <15 on HEAT TREAT INSPECTOR Lab Order: CBC with Diff; SPEC'M 10/16/16 13:22 Test: WHITE BLOOD COUNT; Value: 4.8; Range: 4.0-10.0; Units: K/mm3; Status: F Test: RED BLOOD COUNT; Value: 3.85; Range: 4.00-5.40; Abnormal: Below low normal; Units: M/mm3; Status: F Test: HEMOGLOBIN; Value: 13.3; Range: 12.0-16.0; Units: g/dl; Status: F Test: HEMATOCRIT; Value: 38.6; Range: 36.0-47.0; Units: %; Status: F Test: MEAN CORPUSCULAR VOLUME; Value: 100.3; Range: 80.0-96.0; Abnormal: Above high normal; Units: fl; Status: F Test: MEAN CORPUSCULAR HEMOGLOBIN; Value: 34.6; Range: 27.0-33.0; Abnormal: Above high normal; Units: pg; Status: F Test: MEAN CORPUSCULAR HGB CONC; Value: 34.5; Range: 32.0-36.5; Units: g/dl; Status: F Test: RED CELL DISTRIBUTION WIDTH; Value: 12.1; Range: 11.5-14.5; Units: %; Status: F Test: PLATELET COUNT, AUTOMATED; Value: 264; Range: 150-450; Units: k/mm3; Status: F Test: NEUTROPHILS %; Value: 67.5; Range: 36.0-66.0; Abnormal: Above high normal; Units: %; Status: F Test: LYMPH %; Value: 22.2; Range: 24.0-44.0; Abnormal: Below low normal; Units: %; Status: F Test: MONO %; Value: 7.0; Range: 0.0-5.0; Abnormal: Above high normal; Units: %; Status: F Test: EOS %; Value: 1.5; Range: 0.0-3.0; Units: %; Status: F Test: BASO %; Value: 0.4; Range: 0.0-1.0; Units: %; Status: F Test: LARGE UNSTAINED CELL %; Value: 1.4; Range: 0.0-4.0; Units: %; Status: F Test: NEUTROPHILS #; Value: 3.3; Range: 1.8-7.7; Units: K/mm3; Status: F Test: LYMPH #; Value: 1.1; Range: 1.5-4.5; Abnormal: Below low normal; Units: K/mm3; Status: F Test: MONO #; Value: 0.3; Range: 0.0-0.8; Units: K/mm3; Status: F Test: EOS #; Value: 0.1; Range: 0.0-0.50; Units: K/mm3; Status: F Test: BASO #; Value: 0.0; Range: 0.0-0.2; Units: K/mm3; Status: F Test: LARGE UNSTAINED CELL #; Value: 0.1; Range: 0.0-0.4; Units: K/mm3; Status: F Lab Order: Cardiac Injury Profile; SPEC'M 10/16/16 13:22 Test: CPK CREATINE PHOSPHOKINASE; Value: 78; Range: 26-192; Units: U/L; Status: F Test: CK-MB VALUE MASS; Value: 1.7; Range: 0.0-3.6; Units: NG/ML; Status: F Test: MB/CK RELATIVE INDEX; Value: 2.17; Range: < OR =4; Status: F Test Note: ; DIAGNOSIS CRITERIA MMB ng/ml Relative Index (RI) NON-AMI < or = 5 N/A SAMUELS ZONE > 5 < or = 4 AMI > 5 > 4 Lab Order: Lipase; SPEC'M 10/16/16 13:22 Test: LIPASE; Value: 287; Range: 73-393; Units: U/L; Status: F Lab Order: Liver Profile; [facility] 10/16/16 13:22 Test: AST/SGOT; Value: 20; Range: 15-37; Units: U/L; Status: F Test: ALT/SGPT; Value: 20; Range: 12-78; Units: U/L; Status: F Test: ALKALINE PHOSPHATASE; Value: 102; Range: 45-117; Units: U/L; Status: F Test: BILIRUBIN,TOTAL; Value: 0.3; Range: 0.2-1.0; Units: MG/DL; Status: F Test: BILIRUBIN,DIRECT; Value: < 0.1; Range: 0.0-0.2; Units: MG/DL; Status: F Test: TOTAL PROTEIN; Value: 7.5; Range: 6.4-8.2; Units: GM/DL; Status: F Test: ALBUMIN; Value: 3.9; Range: 3.2-5.2; Units: GM/DL; Status: F Test: ALBUMIN/GLOBULIN RATIO; Value: 1.08; Range: 1.00-1.93; Status: F Lab Order: Prothrombin Time Profile\E\INR; [facility]10 Test: PROTHROMBIN TIME; Value: 13.3; Range: 12.3-14.5; Units: SECONDS; Status: F Test: INR; Value: 1.00; Status: F Test Note: ; THERAPUTIC HUMAN INR VALUES INDICATIONS NORMAL RANGES PROPHYLAXIS/TREATMENT OF: VENOUS THROMBOSIS 2.0-3.0 PULMONARY EMBOLISM 2.0-3.0 PREVENTION OF SYSTEMIC EMBOLISM FROM: TISSUE HEART VALVES 2.0-3.0 ACUTE MYOCARDIAL INFARCTION 2.0-3.0 VALVULAR HEART DISEASE 2.0-3.0 ATRIAL FIBRILLATION 2.0-3.0 MECHANICAL VALVES(HIGH RISK) 2.5-3.5 RECURRENT MYOCARDIAL INFARCTION 2.5-3.5 Lab Order: Troponin; [facility] 10/16/16 13:22 Test: TROPONIN I; Value: < 0.02; Range: < 0.10; Units: NG/ML; Status: F Test Note: ; Troponin I Reference Interval for Siemens [place] LOCI: 99th Percentile= 0.00-0.045 ng/ml Risk Stratification: <= 0.10 ng/ml Decreased Risk for Adverse Clinical Events. 0.10-1.50 ng/ml Increased Risk for Adverse Clinical Events. Evaluation of additional criterion and/or repeat testing in 2-6 hours is suggested to rule out myocardial damage. >= 1.50 ng/ml Indicative of Myocardial Injury. Lab Order: Type & Screen; SPEC'M 10/16/16 13:22 Test: BLOOD TYPE; Value: O POS; Status: F Test: AB SCREEN (INDIRECT [place])VIS; Value: NEGATIVE; Status: F Radiology Order: CT ABD & PELVIS: IV Contrast Only Test: CT ABD & PELVIS: IV Contrast Only REASON FOR EXAMINATION: Abdomen Pain; Clinical: Generalized abdominal pain.; ; Technique: Axial contrast enhanced images from the lung bases to the pubic; symphysis using oral and 100 ml Isovue 370 intravenous contrast material with; coronal and sagittal re-formations.; ; Comparison: 06/13/2010.; ; Findings:; Lung bases clear. Visualized heart and pericardium normal.; ; Liver, spleen, pancreas, bilateral adrenal glands are normal. Kidneys; demonstrate cortical atrophic change without hydronephrosis. The patient is; status post cholecystectomy. The enteric system demonstrates diverticulosis; without obstruction or acute inflammatory process. Pelvis demonstrates normal; bladder and evidence for prior hysterectomy. Small fat containing left inguinal; hernia. No ascites. No adenopathy. No mass lesion. Abdominal aorta and; vasculature demonstrates atherosclerotic change without aneurysm.; Musculoskeletal structures demonstrate degenerative changes.; ; Impression:; No acute intra-abdominal or pelvic pathology appreciated.; Diverticulosis without acute diverticulitis.; Small fat containing left inguinal hernia.; No ascites.; ; ; Signed by; Miguel Decker MD 10/16/2016 02:27 P; Outcome: 17:00 Discharge ordered by Provider. sd1 17:12 Discharge Assessment: Patient awake, alert and oriented x 3. No cognitive and/or jmk functional deficits noted. Patient verbalized understanding of disposition instructions. patient administered narcotics - yes. Pt provided with safe discharge. The following High Risk Discharge criteria are identified: None. Condition: good. Discharge instructions given to patient, Instructed on discharge instructions, follow up and referral plans. medication usage, Demonstrated understanding of instructions, medications, Pt was receptive of discharge instructions/ teaching. Prescriptions given X 3. CT Study completed. Property :Personal belongings accompany Pt. 17:14 Patient left the ED. grant Signatures: Dispatcher [employer] EDRebekah Radford MD MD sd1 Ulises Greenberg,RN RN kimberleek Kaycee GaRN RN rs3 Juan Manuel Agustin jml1 Suad Jacinto,RN RN js13 Omid Linda, MAGNETIC RESONANCE IMAGING COORDINATOR MAGNETIC RESONANCE IMAGING COORDINATOR jlf Rahul Sanders, MAGNETIC RESONANCE IMAGING COORDINATOR MAGNETIC RESONANCE IMAGING COORDINATOR jrd Bina Robertson Corrections: (The following items were deleted from the chart) 13:05 12:47 Log In Time: October 16, 2016 at 12:30 sachi karimi MTDSera
--- NOTE | 2016-10-16 20:16 | ECGEPIP ---
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
--- NOTE | 2016-10-18 18:15 | EDDOCDS ---
Nurse's Notes [facility] Name: Shelbie Roche Age: 86 yrs Sex: Female : 1930 Arrival Date: 10/16/2016 Time: 12:45 Bed 8 Private MD: Delta Byers Diagnosis: Upper abdominal pain, unspecified Presentation: 10/16 13:00 Presenting complaint: Patient states: Patient sent from Dr Bean office for js13 abdominal pain. Patient has had UTI in past and thought she had another. UA negative at office. Adult Sepsis Screening: The patient does not have new or worsening altered mentation. Patient's respiratory rate is less than 22. Systolic blood pressure is greater than 100. Patient has a qSOFA score of 0- Negative Sepsis Screen. Suicide/Homicide risk assessment- the patient denies having any suicidal and/or homicidal ideations and does not present with any other emotional, behavioral or mental health complaints. Status: Patient is not a room service server or dependent. Transition of care: patient was received from a primary care office; Dr bean. 13:00 Acuity: ADAN Level 3 js13 13:00 Method Of Arrival: Walkin/Carried/Asstd js13 Triage Assessment: 13:08 General: Appears Behavior is appropriate for age, cooperative. Pain: Location: abdomen js13 Pain currently is 8 out of 10 on a pain scale. Neurological: Level of Consciousness is awake, alert. GI: Abdomen is non- distended. Derm: Skin is pink, warm & dry. Historical: - Allergies: Morphine (Hives); SULFA (SULFONAMIDES); Codeine Sulfate; - Home Meds: 1. Vision Formula (with lutein) oral Unknown daily 2. aspirin 81 mg Oral TbEC 1 tab once daily 3. Calcium + Vitamin D Oral 2 tab twice a day 4. metoprolol tartrate 25 mg Oral tab 1 tab 2 times per day 5. ibuprofen 600 mg Oral tab 1 tab 3 times per day 6. citalopram 20 mg oral tab 1 tab once daily 7. felodipine 5 mg oral Tb24 1 tab once daily 8. Xanax 0.5 mg Oral tab 3 times per day as needed 9. gabapentin 100 mg Oral cap Unknown - PMHx: Anxiety; Hypertension; Chronic Back pain; incontinency; CVA; mitral valve prolapse; - PSHx: back surgery; left hip surgery; Hysterectomy; Cholecystectomy; bladder stimulator; - Social history: Smoking status: Patient states was never smoker of tobacco. No barriers to communication noted, The patient speaks fluent Icelandic. - Family history: Not pertinent. - : The pt / caregiver states he / she is not on anticoagulants. Home medication list is obtained from the patient. - Exposure Risk Screening:: None identified. Screenin:12 Screening information is obtained from the patient. Fall risk: No risks identified. jmk Assistance ADL's: requires no assistance with activities of daily living. Abuse/DV Screen: The patient / caregiver reports he/she is: not in a situation that causes fear, pain or injury. Nutritional screening: No deficits noted. home support is adequate. Assessment: 15:01 General: Appears skin warm and dry color satisfactory. withotu resp distress. chest jmk CTA. indicates upper abdominal discomfort. pain increases with palaption.. 15:03 General: Appears medicated for 6/10 discomfort to upper abd. Reports ABD is bloated. jmk soft with palpation. 16:43 General: states pain has decreased to 5/10 Hot tea has been taken and retained. jmk ambulated to BR x 2 with minimal increase in discomfort.. 17:12 General: Appears receptive to discharge. encouraged follow up withMD regarding bp . jmk casual presentation. abd remains soft and non distended . Vital Signs: 12:47 BP 208 / 108 RA Sitting (auto/reg); Pulse 81; Resp 18; Temp 98.4(O); Pulse Ox 99% on jrd R/A; Weight 64.86 kg (R); Height 5 ft. 1 in. (154.94 cm) (R); Pain 8/10; 13:26 BP 207 / 98 (auto/); jmk 13:27 Pulse 64 MON; Pulse Ox 96% ; jmk 13:41 BP 185 / 98 (auto/); rs3 13:42 Pulse 60 MON; Pulse Ox 93% ; rs3 13:56 BP 168 / 86 (auto/); jmk 13:57 Pulse 58 MON; Pulse Ox 93% ; jmk 15:27 BP 231 / 102 (auto/); jmk 15:27 Pulse 64 MON; Pulse Ox 97% ; jmk 16:42 Pulse 112 MON; Pulse Ox 92% ; jmk 16:43 BP 126 / 72 (auto/); jmk 16:46 BP 195 / 95; Pulse 63; Resp 18; jmk 17:11 BP 200 / 100; Pulse 66; Resp 16; Temp 98.0; Pulse Ox 98% ; Pain 5/10; jmk 12:47 Body Mass Index 27.02 (64.86 kg, 154.94 cm) d Vitals: 12:47 Log In Time: October 16, 2016 at 12:40. jrd 12:47 RN notified that patient meets Red Flag criteria. jrd ED Course: 12:46 Patient visited by Rahul Sanders PCA. jrd 12:46 Patient moved to Waiting jrd 12:47 Delta Byers MD is Private Physician. jrd 12:48 Patient visited by Rahul Sanders PCA. jrd 12:48 Rebekah Zamora MD is Attending Physician. sd1 12:48 Patient moved to 8 jrd 13:02 Triage Initiated js13 13:05 Patient visited by Rahul Sanders PCA. jrd 13:07 Patient visited by Rebekah Zamora MD. sd1 13:09 Patient visited by Suad Jacinto,AMANDA. js13 13:15 Inserted saline lock: 20 gauge in left antecubital area. jmk 13:20 EKG done. (by ED staff). Reviewed by Rebekah Zamora MD. jml1 13:54 Patient visited by Kaycee Ga,AMANDA. rs3 14:36 CT ABD & PELVIS: IV Contrast Only Returned. EDMS 15:15 Patient visited by Juan Manuel Agustin. jml1 16:23 Patient visited by Juan Manuel Agustin. jml1 16:45 Patient visited by Omid Linda PCA. jlf 16:46 Patient visited by Ulises Greenberg,AMANDA. jmk 17:00 Delta Byers MD is Referral Physician. sd1 17:09 [place] [place] was scanned into [employer] and attached to record. gjb 17:12 The patient / caregiver is instructed regarding the plan of care and ED course. jmk 17:12 Discontinued lock intact, bleeding controlled, pressure dressing applied, No jmk redness/swelling at site. No procedures done that require assistance. 21:07 EKG-ADULT Returned. EDMS 10/17 10:40 T-Sheet-- Draft Copy was scanned into [employer] and attached to record. 10:40 ECG/EKG was scanned into [employer] and attached to record. gb 10:40 Radiology Report was scanned into [employer] and attached to record. gb Administered Medications: 10/16 13:26 Not Given (hivess): morphine 2 mg IVP every 5 minutes; Document pain score/vitals after jmk each dose (Hold if SBP < 90mmHg) x5 13:26 Drug: Ondansetron 4 mg Route: IVP; Site: left antecubital; jmk 13:26 Drug: NS 0.9% 1000 ml Route: IV; Rate: 100 mL/hr; Site: left antecubital; jmk 13:54 Drug: fentaNYL (PF) 25 mcg [fentanyl (PF) 50 mcg/mL injection solution (0.5 mL)] Route: rs3 IVP; Site: left antecubital; 15:00 Drug: Sucralfate 1 grams [sucralfate 1 gram tablet (1 tabs)] Route: PO; jmk 15:34 Drug: ALPRAZolam 0.5 mg [alprazolam 0.25 mg tablet (2 tabs)] Route: PO; jmk 17:02 CANCELLED (Other Intervention Used): GI Cocktail - (Alum-Mag Hydroxide-Simeth sd1 Suspension 225 mg-200 mg-25 mg/5 mL 30 ml, Lidocaine Liquid 2 % 10 ml, Hyoscyamine Liquid 10 ml) PO once; Pre-mixed 50mL unit dose Order Results: Lab Order: Amylase; SPEC'M 10/16/16 13:22 Test: AMYLASE; Value: 51; Range: 25-115; Units: U/L; Status: F Lab Order: Basic Metabolic Profile; SPEC'M 10/16/16 13:22 Test: GLUCOSE, FASTING; Value: 105; Range: 83-110; Units: MG/DL; Status: F Test: BLOOD UREA NITROGEN; Value: 15; Range: 7-18; Units: MG/DL; Status: F Test: CREATININE FOR GFR; Value: 0.78; Range: 0.55-1.02; Units: MG/DL; Status: F Test: GLOMERULAR FILTRATION RATE; Value: > 60.0; Range: >32; Status: F Test: SODIUM LEVEL; Value: 139; Range: 136-145; Units: MEQ/L; Status: F Test: POTASSIUM SERUM; Value: 3.9; Range: 3.5-5.1; Units: MEQ/L; Status: F Test: CHLORIDE LEVEL; Value: 104; Range: 98-107; Units: MEQ/L; Status: F Test: CARBON DIOXIDE LEVEL; Value: 27; Range: 21-32; Units: MEQ/L; Status: F Test: ANION GAP; Value: 8; Range: 8-16; Units: MEQ/L; Status: F Test: CALCIUM LEVEL; Value: 9.1; Range: 8.8-10.2; Units: MG/DL; Status: F Test Note: ; Units are mL/min/1.73 m2 Chronic Kidney Disease Staging per NKF: Stage I & II GFR >=60 Normal to Mildly Decreased Stage III GFR 30-59 Moderately Decreased Stage IV GFR 15-29 Severely Decreased Stage V GFR <15 Very Little GFR Left ESRD GFR <15 on [employer]PERVIS[employer]EL [employer]IL[employer] Lab Order: CBC with Diff; SPEC'M 10/16/16 13:22 Test: WHITE BLOOD COUNT; Value: 4.8; Range: 4.0-10.0; Units: K/mm3; Status: F Test: RED BLOOD COUNT; Value: 3.85; Range: 4.00-5.40; Abnormal: Below low normal; Units: M/mm3; Status: F Test: HEMOGLOBIN; Value: 13.3; Range: 12.0-16.0; Units: g/dl; Status: F Test: HEMATOCRIT; Value: 38.6; Range: 36.0-47.0; Units: %; Status: F Test: MEAN CORPUSCULAR VOLUME; Value: 100.3; Range: 80.0-96.0; Abnormal: Above high normal; Units: fl; Status: F Test: MEAN CORPUSCULAR HEMOGLOBIN; Value: 34.6; Range: 27.0-33.0; Abnormal: Above high normal; Units: pg; Status: F Test: MEAN CORPUSCULAR HGB CONC; Value: 34.5; Range: 32.0-36.5; Units: g/dl; Status: F Test: RED CELL DISTRIBUTION WIDTH; Value: 12.1; Range: 11.5-14.5; Units: %; Status: F Test: PLATELET COUNT, AUTOMATED; Value: 264; Range: 150-450; Units: k/mm3; Status: F Test: NEUTROPHILS %; Value: 67.5; Range: 36.0-66.0; Abnormal: Above high normal; Units: %; Status: F Test: LYMPH %; Value: 22.2; Range: 24.0-44.0; Abnormal: Below low normal; Units: %; Status: F Test: MONO %; Value: 7.0; Range: 0.0-5.0; Abnormal: Above high normal; Units: %; Status: F Test: EOS %; Value: 1.5; Range: 0.0-3.0; Units: %; Status: F Test: BASO %; Value: 0.4; Range: 0.0-1.0; Units: %; Status: F Test: LARGE UNSTAINED CELL %; Value: 1.4; Range: 0.0-4.0; Units: %; Status: F Test: NEUTROPHILS #; Value: 3.3; Range: 1.8-7.7; Units: K/mm3; Status: F Test: LYMPH #; Value: 1.1; Range: 1.5-4.5; Abnormal: Below low normal; Units: K/mm3; Status: F Test: MONO #; Value: 0.3; Range: 0.0-0.8; Units: K/mm3; Status: F Test: EOS #; Value: 0.1; Range: 0.0-0.50; Units: K/mm3; Status: F Test: BASO #; Value: 0.0; Range: 0.0-0.2; Units: K/mm3; Status: F Test: LARGE UNSTAINED CELL #; Value: 0.1; Range: 0.0-0.4; Units: K/mm3; Status: F Lab Order: Cardiac Injury Profile; SPEC'M 10/16/16 13:22 Test: CPK CREATINE PHOSPHOKINASE; Value: 78; Range: 26-192; Units: U/L; Status: F Test: CK-MB VALUE MASS; Value: 1.7; Range: 0.0-3.6; Units: NG/ML; Status: F Test: MB/CK RELATIVE INDEX; Value: 2.17; Range: < OR =4; Status: F Test Note: ; DIAGNOSIS CRITERIA MMB ng/ml Relative Index (RI) NON-AMI < or = 5 N/A [place]ONE > 5 < or = 4 AMI > 5 > 4 Lab Order: Lipase; [facility] 10/16/16 13:22 Test: LIPASE; Value: 287; Range: 73-393; Units: U/L; Status: F Lab Order: Liver Profile; [facility] 10/16/16 13:22 Test: AST/SGOT; Value: 20; Range: 15-37; Units: U/L; Status: F Test: ALT/SGPT; Value: 20; Range: 12-78; Units: U/L; Status: F Test: ALKALINE PHOSPHATASE; Value: 102; Range: 45-117; Units: U/L; Status: F Test: BILIRUBIN,TOTAL; Value: 0.3; Range: 0.2-1.0; Units: MG/DL; Status: F Test: BILIRUBIN,DIRECT; Value: < 0.1; Range: 0.0-0.2; Units: MG/DL; Status: F Test: TOTAL PROTEIN; Value: 7.5; Range: 6.4-8.2; Units: GM/DL; Status: F Test: ALBUMIN; Value: 3.9; Range: 3.2-5.2; Units: GM/DL; Status: F Test: ALBUMIN/GLOBULIN RATIO; Value: 1.08; Range: 1.00-1.93; Status: F Lab Order: Prothrombin Time Profile\E\INR; [facility] 10/16/16 14:10 Test: PROTHROMBIN TIME; Value: 13.3; Range: 12.3-14.5; Units: SECONDS; Status: F Test: INR; Value: 1.00; Status: F Test Note: ; THERAPUTIC HUMAN INR VALUES INDICATIONS NORMAL RANGES PROPHYLAXIS/TREATMENT OF: VENOUS THROMBOSIS 2.0-3.0 PULMONARY EMBOLISM 2.0-3.0 PREVENTION OF SYSTEMIC EMBOLISM FROM: TISSUE HEART VALVES 2.0-3.0 ACUTE MYOCARDIAL INFARCTION 2.0-3.0 VALVULAR HEART DISEASE 2.0-3.0 ATRIAL FIBRILLATION 2.0-3.0 MECHANICAL VALVES(HIGH RISK) 2.5-3.5 RECURRENT MYOCARDIAL INFARCTION 2.5-3.5 Lab Order: Troponin; SPEC'M 10/16/16 13:22 Test: TROPONIN I; Value: < 0.02; Range: < 0.10; Units: NG/ML; Status: F Test Note: ; Troponin I Reference Interval for [employer] [place] LOCI: 99th Percentile= 0.00-0.045 ng/ml Risk Stratification: <= 0.10 ng/ml Decreased Risk for Adverse Clinical Events. 0.10-1.50 ng/ml Increased Risk for Adverse Clinical Events. Evaluation of additional criterion and/or repeat testing in 2-6 hours is suggested to rule out myocardial damage. >= 1.50 ng/ml Indicative of Myocardial Injury. Lab Order: Type & Screen; SPEC'M 10/16/16 13:22 Test: BLOOD TYPE; Value: O POS; Status: F Test: AB SCREEN (INDIRECT [place])VIS; Value: NEGATIVE; Status: F Radiology Order: EKG-ADULT Test: EKG-ADULT REASON FOR EXAMINATION: Abdomen Pain; Stationary ECG Study; [facility] - ED; ; Test Date: 2016-10-16; Pat Name: SHELBIE ROCHE Department:; Room: -; Gender: F Back Order Clerk: LORENA; : 1930 Requested By: Rebekah Zamora; Order Number: [id number] Reading MD: Rebekah Zamora; Measurements; Intervals [place]; Rate: 67 P: 46; IL: 270 QRS: -30; QRSD: 105 T: -25; QT: 416; QTc: 441; Interpretive Statements; SINUS RHYTHM WITH FIRST DEGREE AV BLOCK WITH OCCASIONAL SUPRAVENTRICULAR; PREMATURE COMPLEXES; BORDERLINE LEFT AXIS DEVIATION; MODERATE VOLTAGE CRITERIA FOR LVH, CONSIDER NORMAL VARIANT; ; Electronically Signed On 10-16-2016 20:16:50 EST by Rebekah Zamora; Radiology Order: CT ABD & PELVIS: IV Contrast Only Test: CT ABD & PELVIS: IV Contrast Only REASON FOR EXAMINATION: Abdomen Pain; Clinical: Generalized abdominal pain.; ; Technique: Axial contrast enhanced images from the lung bases to the pubic; symphysis using oral and 100 ml Isovue 370 intravenous contrast material with; coronal and sagittal re-formations.; ; Comparison: 06/13/2010.; ; Findings:; Lung bases clear. Visualized heart and pericardium normal.; ; Liver, spleen, pancreas, bilateral adrenal glands are normal. Kidneys; demonstrate cortical atrophic change without hydronephrosis. The patient is; status post cholecystectomy. The enteric system demonstrates diverticulosis; without obstruction or acute inflammatory process. Pelvis demonstrates normal; bladder and evidence for prior hysterectomy. Small fat containing left inguinal; hernia. No ascites. No adenopathy. No mass lesion. Abdominal aorta and; vasculature demonstrates atherosclerotic change without aneurysm.; Musculoskeletal structures demonstrate degenerative changes.; ; Impression:; No acute intra-abdominal or pelvic pathology appreciated.; Diverticulosis without acute diverticulitis.; Small fat containing left inguinal hernia.; No ascites.; ; ; Signed by; Miguel Decker MD 10/16/2016 02:27 P; Outcome: 17:00 Discharge ordered by Provider. sd1 17:12 Discharge Assessment: Patient awake, alert and oriented x 3. No cognitive and/or k functional deficits noted. Patient verbalized understanding of disposition instructions. patient administered narcotics - yes. Pt provided with safe discharge. The following High Risk Discharge criteria are identified: None. Condition: good. Discharge instructions given to patient, Instructed on discharge instructions, follow up and referral plans. medication usage, Demonstrated understanding of instructions, medications, Pt was receptive of discharge instructions/ teaching. Prescriptions given X 3. CT Study completed. Property :Personal belongings accompany Pt. 17:14 Patient left the ED. grant Signatures: Dispatcher [employer] EDMS Rebekah Zamora MD MD sd1 Ulises Greenberg,RN RN Adele Jeong, Reg Reg Kaycee Jasmine,RN RN rs3 Juan Manuel Agustinl1 Suad Jacinto,RN RN js13 Omid Linda, TEACHER VOCATIONAL TRAINING TEACHER VOCATIONAL TRAINING Rahul Wu, TEACHER VOCATIONAL TRAINING TEACHER VOCATIONAL TRAINING Bina Barreto Corrections: (The following items were deleted from the chart) 13:05 12:47 Log In Time: October 16, 2016 at 12:30 sachi karimi Chart Complete MTDD
--- NOTE | 2016-10-18 18:15 | EDDOCDS ---
Physician Documentation [facility] Name: Fabiana Roche Age: 86 yrs Sex: Female : 1930 Arrival Date: 10/16/2016 Time: 12:45 Bed 8 Private MD: Delta Byers Disposition: 10/16/16 17:00 Discharged to Home/Self Care. Impression: Upper abdominal pain, unspecified. - Condition is Stable. - Discharge Instructions: Abdominal Pain, Adult, Gastritis, Adult. - Prescriptions for Carafate 100 mg/mL Oral suspension - take 10 milliliter by ORAL route 4 times per day on an empty stomach 1 hour before meals and at bedtime; 300 milliliter. Pepcid 20 mg Oral Tablet - take 1 tablet by ORAL route every 12 hours for 10 days; 20 tablet. Xanax 0.25 mg Oral Tablet - take 1 tablet by ORAL route every 8 hours As needed MDD: 3 tabs; 10 tablet. - Medication Reconciliation, Local Pharmacy Hours form. - Follow up: Delta Byers MD; When: 2 - 3 days. - Problem is new. - Symptoms are resolved. Historical: - Allergies: Morphine (Hives); SULFA (SULFONAMIDES); Codeine Sulfate; - Home Meds: 1. Vision Formula (with lutein) oral Unknown daily 2. aspirin 81 mg Oral TbEC 1 tab once daily 3. Calcium + Vitamin D Oral 2 tab twice a day 4. metoprolol tartrate 25 mg Oral tab 1 tab 2 times per day 5. ibuprofen 600 mg Oral tab 1 tab 3 times per day 6. citalopram 20 mg oral tab 1 tab once daily 7. felodipine 5 mg oral Tb24 1 tab once daily 8. Xanax 0.5 mg Oral tab 3 times per day as needed 9. gabapentin 100 mg Oral cap Unknown - PMHx: Anxiety; Hypertension; Chronic Back pain; incontinency; CVA; mitral valve prolapse; - PSHx: back surgery; left hip surgery; Hysterectomy; Cholecystectomy; bladder stimulator; - Social history: Smoking status: Patient states was never smoker of tobacco. No barriers to communication noted, The patient speaks fluent Turkish. - Family history: Not pertinent. - : The pt / caregiver states he / she is not on anticoagulants. Home medication list is obtained from the patient. - Exposure Risk Screening:: None identified. Vital Signs: 10/16 12:47 BP 208 / 108 RA Sitting (auto/reg); Pulse 81; Resp 18; Temp 98.4(O); Pulse Ox 99% on jrd R/A; Weight 64.86 kg / 142.99 lbs (R); Height 5 ft. 1 in. (154.94 cm) (R); Pain 8/10; 13:26 BP 207 / 98 (auto/); jmk 13:27 Pulse 64 MON; Pulse Ox 96% ; jmk 13:41 BP 185 / 98 (auto/); rs3 13:42 Pulse 60 MON; Pulse Ox 93% ; rs3 13:56 BP 168 / 86 (auto/); jmk 13:57 Pulse 58 MON; Pulse Ox 93% ; jmk 15:27 BP 231 / 102 (auto/); jmk 15:27 Pulse 64 MON; Pulse Ox 97% ; jmk 16:42 Pulse 112 MON; Pulse Ox 92% ; jmk 16:43 BP 126 / 72 (auto/); jmk 16:46 BP 195 / 95; Pulse 63; Resp 18; jmk 17:11 BP 200 / 100; Pulse 66; Resp 16; Temp 98.0; Pulse Ox 98% ; Pain 5/10; jmk 12:47 Body Mass Index 27.02 (64.86 kg, 154.94 cm) jrd MDM: 13:05 Undress patient appropriately for examination ordered. sd1 13:06 morphine 2 mg IVP every 5 minutes; Document pain score/vitals after each dose (Hold if sd1 SBP < 90mmHg) x5 ordered. 13:06 Ondansetron 4 mg IVP once ordered. sd1 13:06 Amylase Ordered. EDMS 13:06 Basic Metabolic Profile Ordered. EDMS 13:06 NS 0.9% 1000 ml IV at 100 mL/hr continuous ordered. sd1 13:06 CBC with Diff Ordered. EDMS 13:06 Cardiac Injury Profile Ordered. EDMS 13:06 Lipase Ordered. EDMS 13:06 Liver Profile Ordered. EDMS 13:06 Prothrombin Time Profile\E\INR Ordered. EDMS 13:06 Troponin Ordered. EDMS 13:06 Type & Screen Ordered. EDMS 13:06 NOTHING BY MOUTH+DIET ordered. EDMS 13:07 ECG WITH READING ER PHYS+CARDIAG ordered. EDMS 13:27 fentaNYL (PF) 25 mcg IVP once ordered. sd1 13:38 Recheck B/P ordered. sd1 14:03 CBC with Diff Reviewed. sd1 14:03 Amylase Reviewed. sd1 14:03 Basic Metabolic Profile Reviewed. sd1 14:03 Cardiac Injury Profile Reviewed. sd1 14:03 Lipase Reviewed. sd1 14:03 Liver Profile Reviewed. sd1 14:03 Troponin Reviewed. sd1 14:05 CT ABD & PELVIS: IV Contrast Only Ordered. EDMS 14:44 Sucralfate 1 grams PO once ordered. sd1 14:46 Prothrombin Time Profile\E\INR Reviewed. sd1 14:46 Type & Screen Reviewed. sd1 14:46 CT ABD & PELVIS: IV Contrast Only Reviewed. sd1 15:06 CLEAR LIQUID+DIET ordered. EDMS 15:25 ALPRAZolam Tablet 0.5 mg PO once ordered. sd1 16:39 Financial registration complete. banner 17:09 [facility] Payment Agreement was scanned into [employer] and attached to record. banner 10/17 10:40 T-Sheet-- Draft Copy was scanned into [employer] and attached to record. gb 10:40 ECG/EKG was scanned into [employer] and attached to record. gb 10:40 Radiology Report was scanned into [employer] and attached to record. gb Administered Medications: 10/16 13:26 Not Given (hivess): morphine 2 mg IVP every 5 minutes; Document pain score/vitals after jmk each dose (Hold if SBP < 90mmHg) x5 13:26 Drug: Ondansetron 4 mg Route: IVP; Site: left antecubital; k 13:26 Drug: NS 0.9% 1000 ml Route: IV; Rate: 100 mL/hr; Site: left antecubital; jmk 13:54 Drug: fentaNYL (PF) 25 mcg [fentanyl (PF) 50 mcg/mL injection solution (0.5 mL)] Route: rs3 IVP; Site: left antecubital; 15:00 Drug: Sucralfate 1 grams [sucralfate 1 gram tablet (1 tabs)] Route: PO; jmk 15:34 Drug: ALPRAZolam 0.5 mg [alprazolam 0.25 mg tablet (2 tabs)] Route: PO; jmk 17:02 CANCELLED (Other Intervention Used): GI Cocktail - (Alum-Mag Hydroxide-Simeth sd1 Suspension 225 mg-200 mg-25 mg/5 mL 30 ml, Lidocaine Liquid 2 % 10 ml, Hyoscyamine Liquid 10 ml) PO once; Pre-mixed 50mL unit dose Signatures: Dispatcher [employer] Rebekah Miller MD MD sd1 Ulises Greenberg,RN RN Adele Jeong, Suad Jacobs RN RN js13 Bina Robertson Rosemary RN rs3 The chart was reviewed and I authenticate all verbal orders and agree with the evaluation and treatment provided.Corrections: (The following items were deleted from the chart) 17:02 16:50 GI Cocktail - (Alum-Mag Hydroxide-Simeth 30 ml, Lidocaine 10 ml, Hyoscyamine 10 sd1 ml) PO once; Pre-mixed 50mL unit dose ordered. sd1 Attachments: 17:09 [facility] Payment Agreement banner 10/17 10:40 T-Sheet-- Draft Copy gb 10:40 ECG/EKG Chart Complete MTDD
--- NOTE | 2016-10-18 18:15 | EDDOCDS ---
Physician Documentation [facility] Name: Fabiana Roche Age: 86 yrs Sex: Female : 1930 Arrival Date: 10/16/2016 Time: 12:45 Bed 8 Private MD: Delta Byers Disposition: 10/16/16 17:00 Discharged to Home/Self Care. Impression: Upper abdominal pain, unspecified. - Condition is Stable. - Discharge Instructions: Abdominal Pain, Adult, Gastritis, Adult. - Prescriptions for Carafate 100 mg/mL Oral suspension - take 10 milliliter by ORAL route 4 times per day on an empty stomach 1 hour before meals and at bedtime; 300 milliliter. Pepcid 20 mg Oral Tablet - take 1 tablet by ORAL route every 12 hours for 10 days; 20 tablet. Xanax 0.25 mg Oral Tablet - take 1 tablet by ORAL route every 8 hours As needed MDD: 3 tabs; 10 tablet. - Medication Reconciliation, Local Pharmacy Hours form. - Follow up: Delta Byers MD; When: 2 - 3 days. - Problem is new. - Symptoms are resolved. Historical: - Allergies: Morphine (Hives); SULFA (SULFONAMIDES); Codeine Sulfate; - Home Meds: 1. Vision Formula (with lutein) oral Unknown daily 2. aspirin 81 mg Oral TbEC 1 tab once daily 3. Calcium + Vitamin D Oral 2 tab twice a day 4. metoprolol tartrate 25 mg Oral tab 1 tab 2 times per day 5. ibuprofen 600 mg Oral tab 1 tab 3 times per day 6. citalopram 20 mg oral tab 1 tab once daily 7. felodipine 5 mg oral Tb24 1 tab once daily 8. Xanax 0.5 mg Oral tab 3 times per day as needed 9. gabapentin 100 mg Oral cap Unknown - PMHx: Anxiety; Hypertension; Chronic Back pain; incontinency; CVA; mitral valve prolapse; - PSHx: back surgery; left hip surgery; Hysterectomy; Cholecystectomy; bladder stimulator; - Social history: Smoking status: Patient states was never smoker of tobacco. No barriers to communication noted, The patient speaks fluent Georgian. - Family history: Not pertinent. - : The pt / caregiver states he / she is not on anticoagulants. Home medication list is obtained from the patient. - Exposure Risk Screening:: None identified. Vital Signs: 10/16 12:47 BP 208 / 108 RA Sitting (auto/reg); Pulse 81; Resp 18; Temp 98.4(O); Pulse Ox 99% on jrd R/A; Weight 64.86 kg / 142.99 lbs (R); Height 5 ft. 1 in. (154.94 cm) (R); Pain 8/10; 13:26 BP 207 / 98 (auto/); jmk 13:27 Pulse 64 MON; Pulse Ox 96% ; jmk 13:41 BP 185 / 98 (auto/); rs3 13:42 Pulse 60 MON; Pulse Ox 93% ; rs3 13:56 BP 168 / 86 (auto/); jmk 13:57 Pulse 58 MON; Pulse Ox 93% ; jmk 15:27 BP 231 / 102 (auto/); jmk 15:27 Pulse 64 MON; Pulse Ox 97% ; jmk 16:42 Pulse 112 MON; Pulse Ox 92% ; jmk 16:43 BP 126 / 72 (auto/); jmk 16:46 BP 195 / 95; Pulse 63; Resp 18; jmk 17:11 BP 200 / 100; Pulse 66; Resp 16; Temp 98.0; Pulse Ox 98% ; Pain 5/10; jmk 12:47 Body Mass Index 27.02 (64.86 kg, 154.94 cm) jrd MDM: 13:05 Undress patient appropriately for examination ordered. sd1 13:06 morphine 2 mg IVP every 5 minutes; Document pain score/vitals after each dose (Hold if sd1 SBP < 90mmHg) x5 ordered. 13:06 Ondansetron 4 mg IVP once ordered. sd1 13:06 Amylase Ordered. EDMS 13:06 Basic Metabolic Profile Ordered. EDMS 13:06 NS 0.9% 1000 ml IV at 100 mL/hr continuous ordered. sd1 13:06 CBC with Diff Ordered. EDMS 13:06 Cardiac Injury Profile Ordered. EDMS 13:06 Lipase Ordered. EDMS 13:06 Liver Profile Ordered. EDMS 13:06 Prothrombin Time Profile\E\INR Ordered. EDMS 13:06 Troponin Ordered. EDMS 13:06 Type & Screen Ordered. EDMS 13:06 NOTHING BY MOUTH+DIET ordered. EDMS 13:07 ECG WITH READING ER PHYS+CARDIAG ordered. EDMS 13:27 fentaNYL (PF) 25 mcg IVP once ordered. sd1 13:38 Recheck B/P ordered. sd1 14:03 CBC with Diff Reviewed. sd1 14:03 Amylase Reviewed. sd1 14:03 Basic Metabolic Profile Reviewed. sd1 14:03 Cardiac Injury Profile Reviewed. sd1 14:03 Lipase Reviewed. sd1 14:03 Liver Profile Reviewed. sd1 14:03 Troponin Reviewed. sd1 14:05 CT ABD & PELVIS: IV Contrast Only Ordered. EDMS 14:44 Sucralfate 1 grams PO once ordered. sd1 14:46 Prothrombin Time Profile\E\INR Reviewed. sd1 14:46 Type & Screen Reviewed. sd1 14:46 CT ABD & PELVIS: IV Contrast Only Reviewed. sd1 15:06 CLEAR LIQUID+DIET ordered. EDMS 15:25 ALPRAZolam Tablet 0.5 mg PO once ordered. sd1 16:39 Financial registration complete. [facility] 17:09 [facility] Payment Agreement was scanned into [employer] and attached to record. [facility] 10/17 10:40 T-Sheet-- Draft Copy was scanned into [employer] and attached to record. gb 10:40 ECG/EKG was scanned into [employer] and attached to record. gb 10:40 Radiology Report was scanned into [employer] and attached to record. gb Administered Medications: 10/16 13:26 Not Given (hivess): morphine 2 mg IVP every 5 minutes; Document pain score/vitals after jmk each dose (Hold if SBP < 90mmHg) x5 13:26 Drug: Ondansetron 4 mg Route: IVP; Site: left antecubital; k 13:26 Drug: NS 0.9% 1000 ml Route: IV; Rate: 100 mL/hr; Site: left antecubital; jmk 13:54 Drug: fentaNYL (PF) 25 mcg [fentanyl (PF) 50 mcg/mL injection solution (0.5 mL)] Route: rs3 IVP; Site: left antecubital; 15:00 Drug: Sucralfate 1 grams [sucralfate 1 gram tablet (1 tabs)] Route: PO; jmk 15:34 Drug: ALPRAZolam 0.5 mg [alprazolam 0.25 mg tablet (2 tabs)] Route: PO; jmk 17:02 CANCELLED (Other Intervention Used): GI Cocktail - (Alum-Mag Hydroxide-Simeth sd1 Suspension 225 mg-200 mg-25 mg/5 mL 30 ml, Lidocaine Liquid 2 % 10 ml, Hyoscyamine Liquid 10 ml) PO once; Pre-mixed 50mL unit dose Signatures: Dispatcher [employer] Rebekah Miller MD MD sd1 Ulises Greenberg,RN RN Adele Jeong, Suad Jacobs RN RN [id number] Bina Robertson Rosemary RN rs3 The chart was reviewed and I authenticate all verbal orders and agree with the evaluation and treatment provided.Corrections: (The following items were deleted from the chart) 17:02 16:50 GI Cocktail - (Alum-Mag Hydroxide-Simeth 30 ml, Lidocaine 10 ml, Hyoscyamine 10 sd1 ml) PO once; Pre-mixed 50mL unit dose ordered. sd1 Attachments: 17:09 [facility] Payment Agreement [facility] 10/17 10:40 T-Sheet-- Draft Copy gb 10:40 ECG/EKG Chart Complete MTDD
== END 2016-10-16 17:14 | disposition home or self-care (01) ==
LOC: M ED 12:45
DX: R10.9 Unspecified abdominal pain (principal); I10 Essential (primary) hypertension; F41.9 Anxiety disorder, unspecified; G89.29 Other chronic pain; M54.9 Dorsalgia, unspecified; Z86.73 Personal history of transient ischemic attack (TIA), and cerebral infarction without residual deficits; I34.1 Nonrheumatic mitral (valve) prolapse; Z79.82 Long term (current) use of aspirin; Z79.899 Other long term (current) drug therapy; Z88.5 Allergy status to narcotic agent; Z88.2 Allergy status to sulfonamides
CPT/HCPCS: 36415; 74177; 80048; 80076; 82150; 82550; 82553; 83690; 84484; 85025; 85610; 86850; 86900; 86901; 87086; 93005; 96374; 96375; 99284; J2405; J3010; Q9967

== ENCOUNTER → 2016-10-16 | Outpatient (REF) | payer MEDICARE | LOC: M LAB REF 16:32 | PROVIDERS: ATTEND Physician Assistant | DX: N39.0 Urinary tract infection, site not specified (principal) ==

== ENCOUNTER → 2016-10-25 | Outpatient (CLI) | payer MEDICARE ==
--- NOTE | 2016-11-02 00:57 | ECWPNPC ---
PATIENT NAME: SHELBIE CORTEZ : 1930 GENDER: FEMALE VISIT DATE: 10/25/2016 DISCHARGE DATE: 10/25/16 0956 VISIT LOCKED DATE TIME: PHYSICIAN: EVAN ORTEGA RESOURCE: EVAN ORTEGA REASON FOR APPOINTMENT 1. LOW BACK PAIN HISTORY OF PRESENT ILLNESS HISTORY OF PRESENT ILLNESS: PAIN THE PATIENT DESCRIBES THE PAIN... 86 YEAR OLD FEMALE PATIENT WITH HISTORY OF CHRONIC BACK PAIN. PATIENT DESCRIBES THE PAIN THROBBING AND HAVING IT ALL THE TIME WITH A PAIN SCORE OF 8/10 ON TODAY'S VISIT. PATIENT STATES THAT SOMETIMES THE PAIN RADIATES FROM HER BACK DOWN TO HER LEGS, WITH MORE PAIN IN THE RIGHT LEG THAN IN THE LEFT LEG AND IT HAS BEEN OCCURRING MORE RECENTLY. PATIENT REPORTS THE ULTRACET MEDICATION DOES NOT AID IN PAIN RELIEF AND SHE EVEN TRIED USING 2 TABLETS AT ONE TIME. PATIENT REPORTS THAT GABAPENTIN TAKES THE EDGE OFF THE PAIN BUT THE PAIN IS STILL THERE. PATIENT DENIES UNEXPLAINABLE WEIGHT LOSS, FEVER, CHILLS, NEW CHANGES ON HER URINARY OR BOWEL CONTROL. FALL RISK SCREENING: SCREENING :NO FALLS IN THE PAST YEAR CURRENT MEDICATIONS TAKING TRAMADOL HCL 50 MG TABLET 1 TO 2 TABLET NEEDED ORALLY FOR PAIN EVERY 6 HRS MDD6 TAKING GABAPENTIN 300 MG CAPSULE 1 CAPSULE ORALLY THREE TIMES DAILY FOR PAIN MDD3, NOTES: HAS RUN OUT TAKING TYLENOL 500 MG TABLET 2 TABLET NEEDED ORALLY 3 TIMES A DAY NEEDED TAKING IBUPROFEN 200 MG TABLET 3 TABLET NEEDED ORALLY 3 TIMES A DAY NEEDED TAKING CALCIUM 600 MG TABLET 1 TABLET WITH MEALS ORALLY TWICE A DAY TAKING METOPROLOL SUCCINATE ER 25 MG TABLET EXTENDED RELEASE 24 HOUR 1 TABLET ORALLY 1 TAB IN A.M., 2 TABS IN P.M. TAKING FELODIPINE ER 5 MG TABLET EXTENDED RELEASE 24 HOUR 1 TABLET ORALLY ONCE A DAY TAKING CITALOPRAM HYDROBROMIDE 10 MG TABLET 1 TABLET ORALLY ONCE A DAY TAKING ASPIRIN ADULT LOW STRENGTH 81 MG TABLET DELAYED RELEASE 1 TABLET ORALLY ONCE A DAY TAKING VISION FORMULA TABLET 1 TABLET ORALLY DAILY TAKING GAS-X 125 MG CAPSULE 1 CAPSULE AFTER MEALS AND AT BEDTIME NEEDED ORALLY FOUR TIMES A DAY TAKING PROBIOTIC CAPSULE 1 TABLET ORALLY DAILY NOT-TAKING ULTRACET 37.5-325 MG TABLET 1 TABLETS NEEDED ORALLY EVERY 6 HRS FOR PAIN MDD4 NOT-TAKING CETIRIZINE HCL 10 MG TABLET 1 TABLET NEEDED ORALLY ONCE A DAY MEDICATION LIST REVIEWED AND RECONCILED WITH THE PATIENT PAST MEDICAL HISTORY TACHYCARDIA SYNCOPE IN 2013 - FIRST DEGREE AV BLOCK GERD HTN SPINAL STENOSIS ANXIETY MILD STROKE ARTHRITIS ALLERGIES MORPHINE SULFATE: HIVES: ALLERGY ENALAPRIL: NAUSEA/VOMITING: SIDE EFFECTS ULTRAM: NAUSEA/VOMITING: SIDE EFFECTS BENICAR: NAUSEA/VOMITING: SIDE EFFECTS CODEINE SULFATE: NAUSEA: SIDE EFFECTS CIPROFLOXACIN: NAUSEA: SIDE EFFECTS SULFA (FOR ALLERGY USE ONLY): NAUSEA: SIDE EFFECTS BACTRIM: NAUSEA: SIDE EFFECTS OXYCODONE-ACETAMINOPHEN: NAUSEA/VOMITING: SIDE EFFECTS SURGICAL HISTORY NO SURGICAL HISTORY DOCUMENTED. FAMILY HISTORY NO FAMILY HISTORY DOCUMENTED. SOCIAL HISTORY GENERAL: TOBACCO USE ARE YOU A:NONSMOKER LEARNING BARRIERS / SPECIAL NEEDS ORIENTED TO PLAN OF CARE: PATIENT, PAIN MANAGEMENT PATIENT, ORIENTED TO PLAN OF CARE: PATIENT, PAIN MANAGEMENT PATIENT. NEW PATIENT PAIN DIARY TODAY'S VISITNOTES FROM 0-10, WHAT LEVEL IS YOUR PAIN TODAY?0 PAIN CLINIC PFS, CLERGY, PUBLIC HEALTH REFERRALS PFS REFERRAL NEEDED?NO CLERGY REFERRAL NEEDED?NO PUBLIC HEALTH REFERRAL NEEDED?NO WAS THE PROVIDER NOTIFIED OF ANY PERTINENT INFO?NO PFS REFERRAL NEEDED?NO CLERGY REFERRAL NEEDED?NO PUBLIC HEALTH REFERRAL NEEDED?NO WAS THE PROVIDER NOTIFIED OF ANY PERTINENT INFO?NO HOSPITALIZATION/MAJOR DIAGNOSTIC PROCEDURE SEE ABOVE REVIEW OF SYSTEMS CONSTITUTIONAL: ANY CHANGE IN YOUR MEDICAL CONDITION? YES, IN ER LAST MON. FOR WORK UP OF ? ANEURYSM-- WORK UP NEG. THOUGHT IT MIGHT HAVE BEEN A GI BUG . CHILLS NO . FEVER NO . INFECTION: DO YOU HAVE NEW INFECTIONS? NO . DO YOU HAVE HISTORY OF MRSA? NO . MUSCULOSKELETAL: ANY NEW PATTERNS OF PAIN OR NUMBNESS? NO . GASTROENTEROLOGY: ANY NEW CHANGE IN BOWEL CONTROL? NO . GENITOURINARY: ANY NEW CHANGE IN BLADDER CONTROL? NO . IS THERE A CHANCE YOU COULD BE ? NO . HEMATOLOGY/LYMPH: DO YOU TAKE ANY BLOOD THINNERS? (FOR EXAMPLE- COUMADIN, PLAVIX, AGGRENOX, PLATEL, PRADAXA, OR XARELTO) NO . WHEN WAS YOUR LAST DOSE? DATE: TIME: . NEUROLOGY: HAVE YOU FALLEN IN THE PAST 6 MONTHS? NO . ANY NEW EXTREMITY NUMBNESS OR WEAKNESS? NO . CARDIOLOGY: DO YOU HAVE A PACEMAKER OR DEFIBRILLATOR? NO . RESPIRATORY: HAVE YOU BEEN SICK IN THE PAST WEEK? NO . FEVER NO . FLU LIKE SYMPTOMS? NO . COUGH NO . INTEGUMENTARY: DO YOU HAVE ANY RASHES OR OPEN SORES? NO . ALLERGIC/IMMUNO: ARE YOU ALLERGIC TO SHELLFISH OR IV DYE? NO . ANY NEW ALLERGIES? NO . PSYCHIATRIC: DO YOU HAVE THOUGHTS OF HURTING YOURSELF OR SOMEONE ELSE? NO . ARE YOU ABUSED, NEGLECTED, OR IN AN UNSAFE ENVIRONMENT? NO . ENDOCRINOLOGY: ARE YOU DIABETIC? NO . OTHER: DO YOU NEED ANY PRESCRIPTIONS? NO . IF YES, PLEASE LIST: ____ . ANY NEW PROBLEMS WITH YOUR MEDICATIONS? NO . WHEN DID YOU LAST EAT? ____ . WHEN DID YOU LAST DRINK? ____ . WHAT DID YOU LAST DRINK? ____ . NAME OF PERSON DRIVING YOU HOME? ____ . DO YOU HAVE ANY OTHER QUESTIONS OR CONCERNS YES, TRAMADOL NOT EFFECTIVE--SHE IS LEARY TO TAKE 2 . REVIEWED BY: PROVIDER: EVAN ORTEGA MD . VITAL SIGNS WT 140.8 LBS, HT 61 IN, BMI 26.60 INDEX, BP 120/80 MM HG, HR 81 /MIN, RR 16 /MIN, TEMP 97.7 F, OXYGEN SAT % 94%, REVIEWED BY: AD. EXAMINATION : PATIENT IS ALERT O X 3 AND COOPERATIVE. TENDERNESS IN THE LOWER BACK AND PARASPINAL MUSCLE GROUP. CT DONE ON 04/15/16 OF THE LUMBAR SPINE SHOWS SEVERE CANAL STENOSIS AT L1-L2 AND L2-L3 AND MODERATE STENOSIS AT L3-L4. CT OF THE THORACIC SPINE DONE ON 04/15/16 SHOWS DEGENERATIVE CHANGES. 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 CORTEZ'S PAIN MANAGEMENT CASE. AT THIS TIME THE PATIENT WILL USE TRAMADOL FOR A FEW DAYS AND TRY USING 2 TABLETS AT ONE TIME. HOWEVER, IF THAT DOES NOT AID IN PAIN RELIEF I WOULD LIKE TO PATIENT TO START USING NUCYNTA. PATIENT DENIES ABUSE OF ANY MEDICATION, DENIES USE OF ILLEGAL SUBSTANCES, AND STATES THAT SHE IS ONLY USING THE MEDICATION FOR PAIN MANAGEMENT. MRS. CORTEZ WAS ADVISED TO STOP EITHER MEDICATION IS SHE HAS ANY ADVERSE SIDE EFFECTS. PATIENT WILL RETURN TO THE CLINIC IN 1 MONTH TO DISCUSS HOW THE MEDICATIONS HELPED HER. INSTRUCTIONS WERE GIVEN, QUESTIONS WERE ANSWERED, PATIENT REPORTS UNDERSTANDING AND AGREES WITH THE PLAN. I, TREVOR BARON, DOCUMENTED THE ABOVE INFORMATION ACTING A SCRIBE FOR DR. ORTEGA. I HAVE REVIEWED THE ABOVE DOCUMENT, WRITTEN BY TREVOR DAVILA AND I VERIFY THAT IT IS ACCURATE. OTHERS START NUCYNTA TABLET, 75 MG, 1 TABLET, ORALLY, EVERY 6 HRS NEEDED FOR PAIN MDD3, 10 DAY(S), 20, REFILLS 0 PROCEDURE CODES FA211 ESTABILISHED PATIENT [facility] CHARGE G8427 DOC MEDS VERIFIED W/PT OR RE G6030 PAIN ASSESS POS TOOL F/U PLAN DOC DISPOSITION & COMMUNICATION FOLLOW UP 4 WEEKS ELECTRONICALLY SIGNED BY EVAN ORTEGA MD ON 11/01/2016 AT 06:30 AM EST DISCLAIMER : THIS IS A VISIT SUMMARY EXTRACTED FROM THE [employer] CHART. IT IS NOT A COPY OF THE [employer] PROGRESS NOTE. LEIGHA
== END ==
LOC: M PAIN 15:00
PROVIDERS: ATTEND Anesthesiology
DX: Z09 Encounter for follow-up examination after completed treatment for conditions other than malignant neoplasm (principal); G89.29 Other chronic pain; M96.1 Postlaminectomy syndrome, not elsewhere classified; M47.816 Spondylosis without myelopathy or radiculopathy, lumbar region; M47.817 Spondylosis without myelopathy or radiculopathy, lumbosacral region; M51.16 Intervertebral disc disorders with radiculopathy, lumbar region; M51.17 Intervertebral disc disorders with radiculopathy, lumbosacral region; K21.9 Gastro-esophageal reflux disease without esophagitis; I10 Essential (primary) hypertension; M48.00 Spinal stenosis, site unspecified; M19.90 Unspecified osteoarthritis, unspecified site; F41.9 Anxiety disorder, unspecified; Z88.5 Allergy status to narcotic agent; Z88.8 Allergy status to other drugs, medicaments and biological substances; Z88.2 Allergy status to sulfonamides; Z88.1 Allergy status to other antibiotic agents; Z79.891 Long term (current) use of opiate analgesic; Z79.1 Long term (current) use of non-steroidal anti-inflammatories (NSAID); Z79.82 Long term (current) use of aspirin; Z79.899 Other long term (current) drug therapy; Z86.73 Personal history of transient ischemic attack (TIA), and cerebral infarction without residual deficits; Z86.79 Personal history of other diseases of the circulatory system

== ENCOUNTER → 2016-11-28 | Outpatient (CLI) | payer MEDICARE ==
--- NOTE | 2016-12-10 23:48 | ECWPNPC ---
PATIENT NAME: SHELBIE CORTEZ : 1930 GENDER: FEMALE VISIT DATE: 11/28/2016 DISCHARGE DATE: 11/28/16 1545 VISIT LOCKED DATE TIME: PHYSICIAN: EVAN ORTEGA RESOURCE: EVAN ORTEGA REASON FOR APPOINTMENT 1. MEDS HISTORY OF PRESENT ILLNESS HISTORY OF PRESENT ILLNESS: PAIN THE PATIENT DESCRIBES THE PAIN... 86 YEAR OLD FEMALE PATIENT WITH HISTORY OF CHRONIC BACK PAIN. PATIENT DESCRIBES THE PAIN THROBBING AND HAVING IT ALL THE TIME WITH A PAIN SCORE OF 8/10 ON TODAY'S VISIT. PATIENT REPORTS THAT SHE STARTED NUCYNTA THAT WAS PRESCRIBE FROM THE LAST VISIT, AND THE MEDICATION MADE HER SICK TO HER STOMACH. PATIENT REPORTS THAT SHE HAS A CONSTANT RADIATING PAIN DOWN HER LEGS. PATIENT DENIES UNEXPLAINABLE WEIGHT LOSS, FEVER, CHILLS, NEW CHANGES ON HER URINARY OR BOWEL CONTROL. FALL RISK SCREENING: SCREENING :NO FALLS IN THE PAST YEAR CURRENT MEDICATIONS TAKING GABAPENTIN 300 MG CAPSULE 1 CAPSULE ORALLY THREE TIMES DAILY FOR PAIN MDD3, NOTES: HAS RUN OUT TAKING TYLENOL 500 MG TABLET 2 TABLET NEEDED ORALLY 3 TIMES A DAY NEEDED TAKING IBUPROFEN 200 MG TABLET 3 TABLET NEEDED ORALLY 3 TIMES A DAY NEEDED TAKING CALCIUM 600 MG TABLET 1 TABLET WITH MEALS ORALLY TWICE A DAY TAKING METOPROLOL SUCCINATE ER 25 MG TABLET EXTENDED RELEASE 24 HOUR 1 TABLET ORALLY 1 TAB IN A.M., 1 TABS IN P.M. TAKING FELODIPINE ER 5 MG TABLET EXTENDED RELEASE 24 HOUR 1 TABLET ORALLY ONCE A DAY TAKING CITALOPRAM HYDROBROMIDE 10 MG TABLET 1 TABLET ORALLY ONCE A DAY TAKING ASPIRIN ADULT LOW STRENGTH 81 MG TABLET DELAYED RELEASE 1 TABLET ORALLY ONCE A DAY TAKING VISION FORMULA TABLET 1 TABLET ORALLY DAILY TAKING GAS-X 125 MG CAPSULE 1 CAPSULE AFTER MEALS AND AT BEDTIME NEEDED ORALLY FOUR TIMES A DAY TAKING PROBIOTIC CAPSULE 1 TABLET ORALLY DAILY NOT-TAKING ULTRACET 37.5-325 MG TABLET 1 TABLETS NEEDED ORALLY EVERY 6 HRS FOR PAIN MDD4 NOT-TAKING CETIRIZINE HCL 10 MG TABLET 1 TABLET NEEDED ORALLY ONCE A DAY DISCONTINUED TRAMADOL HCL 50 MG TABLET 1 TO 2 TABLET NEEDED ORALLY FOR PAIN EVERY 6 HRS MDD6 DISCONTINUED NUCYNTA 75 MG TABLET 1 TABLET ORALLY EVERY 6 HRS NEEDED FOR PAIN MDD3 MEDICATION LIST REVIEWED AND RECONCILED WITH THE PATIENT PAST MEDICAL HISTORY TACHYCARDIA SYNCOPE IN 2012 - FIRST DEGREE AV BLOCK GERD HTN SPINAL STENOSIS ANXIETY MILD STROKE ARTHRITIS ALLERGIES MORPHINE SULFATE: HIVES: ALLERGY ENALAPRIL: NAUSEA/VOMITING: SIDE EFFECTS ULTRAM: NAUSEA/VOMITING: SIDE EFFECTS BENICAR: NAUSEA/VOMITING: SIDE EFFECTS CODEINE SULFATE: NAUSEA: SIDE EFFECTS CIPROFLOXACIN: NAUSEA: SIDE EFFECTS SULFA (FOR ALLERGY USE ONLY): NAUSEA: SIDE EFFECTS BACTRIM: NAUSEA: SIDE EFFECTS OXYCODONE-ACETAMINOPHEN: NAUSEA/VOMITING: SIDE EFFECTS SURGICAL HISTORY NO SURGICAL HISTORY DOCUMENTED. FAMILY HISTORY NO FAMILY HISTORY DOCUMENTED. SOCIAL HISTORY GENERAL: PAIN CLINIC PFS, CLERGY, PUBLIC HEALTH REFERRALS CLERGY REFERRAL NEEDED?NO WAS THE PROVIDER NOTIFIED OF ANY PERTINENT INFO?NO PFS REFERRAL NEEDED?NO PUBLIC HEALTH REFERRAL NEEDED?NO PATIENT: ____. HOSPITALIZATION/MAJOR DIAGNOSTIC PROCEDURE SEE ABOVE REVIEW OF SYSTEMS CONSTITUTIONAL: ANY CHANGE IN YOUR MEDICAL CONDITION? NO . CHILLS NO . FEVER NO . INFECTION: DO YOU HAVE NEW INFECTIONS? NO . DO YOU HAVE HISTORY OF MRSA? NO . MUSCULOSKELETAL: ANY NEW PATTERNS OF PAIN OR NUMBNESS? NO . GASTROENTEROLOGY: ANY NEW CHANGE IN BOWEL CONTROL? NO . GENITOURINARY: ANY NEW CHANGE IN BLADDER CONTROL? NO . IS THERE A CHANCE YOU COULD BE ? NO . HEMATOLOGY/LYMPH: DO YOU TAKE ANY BLOOD THINNERS? (FOR EXAMPLE- COUMADIN, PLAVIX, AGGRENOX, PLATEL, PRADAXA, OR XARELTO) NO . WHEN WAS YOUR LAST DOSE? DATE: TIME: . NEUROLOGY: HAVE YOU FALLEN IN THE PAST 6 MONTHS? NO . ANY NEW EXTREMITY NUMBNESS OR WEAKNESS? NO . CARDIOLOGY: DO YOU HAVE A PACEMAKER OR DEFIBRILLATOR? NO . RESPIRATORY: HAVE YOU BEEN SICK IN THE PAST WEEK? NO . FEVER NO . FLU LIKE SYMPTOMS? NO . COUGH NO . INTEGUMENTARY: DO YOU HAVE ANY RASHES OR OPEN SORES? NO . ALLERGIC/IMMUNO: ARE YOU ALLERGIC TO SHELLFISH OR IV DYE? NO . ANY NEW ALLERGIES? NO . PSYCHIATRIC: DO YOU HAVE THOUGHTS OF HURTING YOURSELF OR SOMEONE ELSE? NO . ARE YOU ABUSED, NEGLECTED, OR IN AN UNSAFE ENVIRONMENT? NO . ENDOCRINOLOGY: ARE YOU DIABETIC? NO . OTHER: DO YOU NEED ANY PRESCRIPTIONS? NO . IF YES, PLEASE LIST: ____ . ANY NEW PROBLEMS WITH YOUR MEDICATIONS? NO . WHEN DID YOU LAST EAT? ____ . WHEN DID YOU LAST DRINK? ____ . WHAT DID YOU LAST DRINK? ____ . NAME OF PERSON DRIVING YOU HOME? ____ . DO YOU HAVE ANY OTHER QUESTIONS OR CONCERNS NO . REVIEWED BY: PROVIDER: EVAN ORTEGA MD . VITAL SIGNS WT 143.0 LBS, HT 61 IN, BMI 27.02 INDEX, BP 130/86 MM HG, HR 143 /MIN, RR 18 /MIN, TEMP 99.0 F, OXYGEN SAT % 97%, NA INITIALS TL 1334PATIENTS HR IS HIGH, 143, I RECHECKED AGAIN 10 MIN LATER AND IT WAS 145, RN L.S. 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 HR REMAINS 130'S TO 140'S. PT DENIES CHEST PAIN, OR SHORTNESS OF BREATH. B/P 122/91. DR ORTEGA MADE AWARE,CM. EXAMINATION : PATIENT IS ALERT O X [address] DONE ON 04/15/16 OF THE LUMBAR SPINE SHOWS SEVERE CANAL STENOSIS AT L1-L2 AND L2-L3 AND MODERATE STENOSIS AT L3-L4. CT OF THE THORACIC SPINE DONE ON 04/15/16 SHOWS DEGENERATIVE CHANGES. 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 CORTEZ'S PAIN MANAGEMENT CASE. I WILL WRITE A SCRIPT TO HAVE THE PATIENT START ON CELEBREX. BUT INFORMED THE PATIENT NOT TO START CELEBREX UNTIL SHE HAS BEEN CLEARED BY DR. FRAUSTO'S OFFICE TO START THE MEDICATION. ADVISED THE PATIENT NOT TO TAKE THE MEDICATIONS EVERYDAY AND ONLY NEEDED. I DISCUSSED WITH THE PATIENT TO FOLLOW UP WITH HER PRIMARY HAS TO WHY HER HEART RATE WAS TACKY TODAY. PATIENT TO FOLLOW UP WITH ME IN 2 MONTHS. , INSTRUCTIONS WERE GIVEN, QUESTIONS WERE ANSWERED, PATIENT REPORTS UNDERSTANDING AND AGREES WITH THE PLAN. I, TAE YANG, DOCUMENTED THE ABOVE INFORMATION ACTING A SCRIBE FOR DR. ORTEGA. I HAVE REVIEWED THE ABOVE DOCUMENT, WRITTEN BY TAE DAVILA AND I VERIFY THAT IT IS ACCURATE. OTHERS START CELEBREX CAPSULE, 100 MG, 1 CAPSULE, ORALLY FOR PAIN, ONCE A DAY, 30 DAY(S), 30 CAPSULE, REFILLS 1 PROCEDURE CODES FA211 ESTABILISHED PATIENT [facility] CHARGE G8730 PAIN ASSESS POS TOOL F/U PLAN DOC G8427 DOC MEDS VERIFIED W/PT OR RE DISPOSITION & COMMUNICATION FOLLOW UP 2 MONTHS ELECTRONICALLY SIGNED BY EVAN ORTEGA MD ON 12/10/2016 AT 05:37 PM EDT DISCLAIMER : THIS IS A VISIT SUMMARY EXTRACTED FROM THE [employer] CHART. IT IS NOT A COPY OF THE [employer] PROGRESS NOTE. MTDD
== END ==
LOC: M PAIN 13:20
PROVIDERS: ATTEND Anesthesiology
DX: Z09 Encounter for follow-up examination after completed treatment for conditions other than malignant neoplasm (principal); M96.1 Postlaminectomy syndrome, not elsewhere classified; G89.29 Other chronic pain; M47.817 Spondylosis without myelopathy or radiculopathy, lumbosacral region; M47.816 Spondylosis without myelopathy or radiculopathy, lumbar region; M51.16 Intervertebral disc disorders with radiculopathy, lumbar region; M51.17 Intervertebral disc disorders with radiculopathy, lumbosacral region; K21.9 Gastro-esophageal reflux disease without esophagitis; I10 Essential (primary) hypertension; M48.00 Spinal stenosis, site unspecified; F41.9 Anxiety disorder, unspecified; M19.90 Unspecified osteoarthritis, unspecified site; Z88.5 Allergy status to narcotic agent; Z88.8 Allergy status to other drugs, medicaments and biological substances; Z88.2 Allergy status to sulfonamides; Z88.1 Allergy status to other antibiotic agents; Z79.82 Long term (current) use of aspirin; Z79.899 Other long term (current) drug therapy; Z86.73 Personal history of transient ischemic attack (TIA), and cerebral infarction without residual deficits

== ENCOUNTER 2017-01-08 09:02 | Inpatient (IN) | payer MEDICARE ==
[~2017-01-08] VITALS: Ht 152.4 cm; Wt 62.6 kg
[2017-01-08] MEDS: CETIRIZINE (ZyrTEC) 10 MG TAB PO SCH (09:00)
[2017-01-08] MEDS ORDERED: ALPR0.25 PO (09:42)
[2017-01-08] MEDS ORDERED: XARE20TA PO (09:42)
[2017-01-08] MEDS ORDERED: methylPREDNISolone INJ 125 MG/2 ML VIAL (J2930) IV ONE (09:45)
[2017-01-08] MEDS ORDERED: IPRATROPIUM 0.5MG/ALBUTEROL 2.5MG INH SOL UD 3ML (DUONEB)(J7620) NEB ONE (09:45)
--- NOTE | 2017-01-08 10:37 | REP ---
Portable chest: Single view. History: Dyspnea and cough. Comparison study: April 15, 2016. Findings: EKG monitoring electrodes overlie the chest. The heart is enlarged unchanged. Pulmonary vasculature is slightly cephalized. There is blunting of the right lateral and probably, the left lateral pleural angles indicating small bilateral effusions. There is no evidence of infiltrate or pulmonary edema. Impression: Mild cardiomegaly, cephalization, and small effusions. CHF pattern. Signed by Sagar Siu MD 01/08/2017 10:29 A
[2017-01-08] MEDS ORDERED: FUROSEMIDE 20 MG/2 ML VIAL (J1940) IV ONE (11:00)
[2017-01-08 11:41] LABS: BASO % 0.7 % (0.0-1.0); EOS % 0.7 % (0.0-3.0); LARGE UNSTAINED CELL # 0.1 K/mm3 (0.0-0.4); LYMPH # 1.1 K/mm3 (1.5-4.5); LYMPH % 22.6 % (24.0-44.0); MEAN CORPUSCULAR HEMOGLOBIN 35.1 pg (27.0-33.0); MEAN CORPUSCULAR HGB CONC 33.7 g/dl (32.0-36.5); MEAN CORPUSCULAR VOLUME 104.2 fl (80.0-96.0); MONO # 0.3 K/mm3 (0.0-0.8); MONO % 5.5 % (0.0-5.0); NEUTROPHILS # 3.2 K/mm3 (1.8-7.7); NEUTROPHILS % 69.6 % (36.0-66.0); PLATELET COUNT, AUTOMATED 218 k/mm3 (150-450); WHITE BLOOD COUNT 4.6 K/mm3 (4.0-10.0)
[2017-01-08 12:11] LABS: ALBUMIN/GLOBULIN RATIO 1.18 (1.00-1.93); ALKALINE PHOSPHATASE 182 U/L (45-117); ALT/SGPT 95 U/L (12-78); ANION GAP 8 MEQ/L (8-16); AST/SGOT 48 U/L (15-37); BILIRUBIN,DIRECT 0.2 MG/DL (0.0-0.2); BLOOD UREA NITROGEN 20 MG/DL (7-18); CALCIUM LEVEL 8.6 MG/DL (8.8-10.2); CARBON DIOXIDE LEVEL 28 MEQ/L (21-32); CHLORIDE LEVEL 105 MEQ/L (98-107); GLOMERULAR FILTRATION RATE > 60.0 (>32); GLUCOSE, FASTING 120 MG/DL (83-110); POTASSIUM SERUM 4.3 MEQ/L (3.5-5.1); SODIUM LEVEL 141 MEQ/L (136-145); TOTAL PROTEIN 7.4 GM/DL (6.4-8.2)
[2017-01-08 12:12] LABS: BILIRUBIN,TOTAL 0.8 MG/DL (0.2-1.0)
[2017-01-08] MEDS ORDERED: ACETAMINOPHEN TAB 650MG DOSE (2X325MG) PO PRN (13:00)
[2017-01-08] MEDS ORDERED: ISOVUE-370 76% 100ML VIAL (Q9967) As Ordered ONE ×2 (13:29→23:34)
[2017-01-08] MEDS ORDERED: BACITAB3 PO (13:52)
--- NOTE | 2017-01-08 14:04 | HPE ---
DATE OF ADMISSION: 01/08/2017 PRIMARY CARE PROVIDER: Dr. Byers HISTORY OF PRESENT ILLNESS: The patient is an 86-year-old female with a past medical history significant for multiple spinal stenosis, hypertension, diastolic congestive heart failure (CHF), anxiety, gastroesophageal reflux disease (GERD), who presented to [facility] on 01/08/2017 for difficulty breathing. Initially, the patient stated that she started having respiratory issues for the past 10 days and she went to urgent care earlier and was found to have very low oxygen saturation and ambulance was called and she was brought to the [facility] Emergency Room. The patient also complained about sinus fullness for a few days. She thought that she had an allergy. Other than that, she denies any symptoms. No cough. No sputum production. The patient uses two pillows at night. Denied any chest pain or palpitations. The patient was diagnosed with atrial fibrillation six weeks ago and the patient was started on Xarelto. ALLERGIES: BENICAR (nausea and vomiting), SULFA (nausea), ENALAPRIL (nausea and vomiting), OXYCODONE (nausea), ULTRACET (nausea and vomiting), CIPRO (rash), CODEINE (hives), IV MORPHINE (shortness of breath and gastrointestinal upset). PAST MEDICAL HISTORY: 1. Atrial fibrillation. 2. Diastolic congestive heart failure (CHF). 3. History of hypertension. 4. History of urinary retention with overflow incontinence. 5. Gastroesophageal reflux disease (GERD). 6. Syncope in 2012 with first degree AV block. 7. Severe spinal stenosis in the lumbar region. PAST SURGICAL HISTORY: 1. Laminectomy. 2. Cholecystectomy. 3. Hysterectomy. 4. Left hip replacement. 5. Placement of Inter-Stim stimulator for urinary retention and overflow by Dr. Horta. 6. History of multiple facet joint injections by the pain clinic. HOME MEDICATIONS: - Tylenol 650 mg by mouth twice a day - Apresoline 0.25 mg one tablet by mouth daily - Celexa 20 mg by mouth daily - felodipine 5 mg by mouth daily - metoprolol tartrate 37.5 mg by mouth twice a day - Xarelto 20 mg by mouth daily SOCIAL HISTORY: Denies smoking. Denies alcohol use. Denies recreational drug use. The patient is DO NOT RESUSCITATE, DO NOT INTUBATE. REVIEW OF SYSTEMS: GENERAL: No fever. No chills. HEENT: No vision changes. No auditory changes. CARDIOVASCULAR: No chest pain. History of atrial fibrillation diagnosed 6 weeks ago and on Xarelto. History of first degree AV block in the past. RESPIRATORY: More difficulty breathing over the past 10 days. No sputum production. No wheezes. No cough. GASTROINTESTINAL: No nausea. No vomiting. No abdominal pain. No diarrhea. NEUROLOGIC: No numbness. No tingling. MUSCULOSKELETAL: The patient has multiple spinal stenosis, mainly in the lumbar region, follows with the pain clinic. OBJECTIVE: VITAL SIGNS: Temperature is 97.7, pulse is 108, respiration rate is 20, blood pressure is 146/85, pulse oximetry is 96% on room air. GENERAL: No sign of acute distress. Alert and oriented times three times three. HEENT: Normocephalic, atraumatic. Extraocular motors grossly intact. CARDIOVASCULAR: Irregularly irregular. Heart rate greater than 100. RESPIRATORY: Fine crackles bilaterally. No wheezes. ABDOMEN: Soft, nontender, nondistended. Bowel sounds present. No rebound or guarding. EXTREMITIES: There is some trace edema noted, left greater than right. No cyanosis. NEUROLOGIC: Sensation to fine touch grossly normal. Muscle strength 5/5. LABORATORY DATA: WBC 4.6, hemoglobin 13.6, hematocrit 40.4, platelet count is 218. Sodium is 141, potassium 4.3, chloride is 105, carbon dioxide 28, BUN 20, creatinine 0.9, GFR greater than 60, fasting glucose 120, lactic acid 21, calcium 8.6, total bilirubin 0.8, direct bilirubin 0.2, AST is 48, ALT is 95, alkaline phosphatase is 182, total CK is 43, troponin I is less than 0.02, BMP is 674, total protein 7.4, albumin is 4.0. ASSESSMENT AND PLAN: 1. Acute shortness of breath. The patient is admitted to the progressive care unit (PCU) under observation status. The patient has a history of atrial fibrillation and currently has elevated D-dimer. Followup with a CTA to rule out pulmonary embolism. The patient has imaging studies and physical examination supportive of congestive heart failure (CHF) exacerbation. The patient started on Lasix diuresis. We will try to achieve negative output. Continue to monitor input and output and daily weights. 2. Chronic diastolic congestive heart failure (CHF) exacerbation. The patient will be on diuretic. 3. Hypertension. Continue home medications. 4. Anxiety. Continue with Celexa. 5. Gastroesophageal reflux disease (GERD). The patient will be on Protonix. 6. Severe spinal stenosis in the lumbar region. The patient has been followed by the pain management. Currently, the patient does not complain about acute worsening of pain. If needed, we will consider consulting pain management team. 7. Atrial fibrillation. Continue Xarelto. Continue metoprolol. 8. Deep vein thrombosis (DVT) prophylaxis. The patient is on Xarelto.
[2017-01-08] MEDS: PANTOPRAZOLE 40MG TAB (PROTONIX) PO SCH (15:32)
[2017-01-08] MEDS: FUROSEMIDE 40 MG/4 ML VIAL (J1940) IV SCH (16:27)
[2017-01-08 18:00] VITALS: BP 175/75
[2017-01-08] MEDS: FLUTICASONE PROP 0.05% NASAL SPRAY 16 GM (FLONASE) PRN (18:31)
[2017-01-08] MEDS: ALPRAZolam 0.25 MG TAB PO PRN ×2 (18:35→23:46)
[2017-01-08] MEDS: RIVAROXABAN 20 MG TAB (XARELTO) PO SCH (18:58)
[2017-01-08] MEDS ORDERED: METOPROLOL 5 MG/5 ML VIAL IV STA (19:10)
[2017-01-08 19:30] VITALS: BP 152/92
[2017-01-08] MEDS: LACTOBACILLUS ACIDOPHILUS CAP (BACID) PO SCH (20:44)
[2017-01-08] MEDS: METOPROLOL TART 25 MG TABLET PO SCH (20:45)
--- NOTE | 2017-01-08 21:11 | ECGEPIP ---
Stationary ECG Study [facility] - ED Test Date: 2017-01-08 Pat Name: SHELBIE CORTEZ Department: Room: - Gender: F Digital Assistant: roger : [id number] Requested By: Sumi Reveles Order Number: [id number] Reading MD: Sumi Reveles Measurements Intervals [place] Rate: 98 P: IN: 0 QRS: -19 QRSD: 90 T: -19 QT: 361 QTc: 462 Interpretive Statements ATRIAL FIBRILLATION ABNORMAL RHYTHM ECG LEFTWARD AXIS NONSPECIFIC ST T WAVE CHANGES POOR R WAVE PROGRESSION RULE OUT ANTEROSEPTAL MYOCARDIAL INFARCTION AGE UNDETERMINED CW 10/16/16 - RATE INCREASED RHYTHM CHANGE Electronically Signed On 01-08-2017 21:10:43 EDT by Sumi Reveles
[2017-01-08 23:26] VITALS: BP 130/70
[2017-01-09] VITALS (8 sets, daily range): BP systolic 118–169; BP diastolic 59–114
[2017-01-09] MEDS: FUROSEMIDE 40 MG/4 ML VIAL (J1940) IV SCH ×4 (00:01→23:46)
[2017-01-09 07:08] LABS: MEAN CORPUSCULAR HEMOGLOBIN 34.8 pg (27.0-33.0); MEAN CORPUSCULAR HGB CONC 34.1 g/dl (32.0-36.5); MEAN CORPUSCULAR VOLUME 102.1 fl (80.0-96.0); WHITE BLOOD COUNT 6.8 K/mm3 (4.0-10.0)
[2017-01-09 07:18] LABS: CALCIUM LEVEL 9.1 MG/DL (8.8-10.2); CREATININE FOR GFR 0.98 MG/DL (0.55-1.02)
[2017-01-09 07:23] LABS: POTASSIUM SERUM 3.3 MEQ/L (3.5-5.1)
[2017-01-09] MEDS: CitaloPRAM (CeleXA) 20 MG TAB PO SCH (08:30)
[2017-01-09] MEDS: LACTOBACILLUS ACIDOPHILUS CAP (BACID) PO SCH ×2 (08:30→21:14)
[2017-01-09] MEDS: CETIRIZINE (ZyrTEC) 10 MG TAB PO SCH (08:31)
[2017-01-09] MEDS: FLUTICASONE PROP 0.05% NASAL SPRAY 16 GM (FLONASE) PRN (08:31)
[2017-01-09] MEDS: OCUVITE 1 TAB PO SCH (08:31)
[2017-01-09] MEDS: METOPROLOL TART 25 MG TABLET PO SCH ×2 (08:31→21:14)
[2017-01-09] MEDS: PANTOPRAZOLE 40MG TAB (PROTONIX) PO SCH (08:31)
[2017-01-09] MEDS ORDERED: FELODIPINE 2.5 MG PO SCH (09:00)
[2017-01-09] MEDS ORDERED: POTASSIUM CHLORIDE 10 MEQ SR TABLET PO ONE (12:00)
--- NOTE | 2017-01-09 12:14 | REP ---
Ventilation-perfusion lung scan: History: Elevated D-dimer shortness of breath. Technique: 1.0 mCi technetium 99m DTPA aerosol is utilized for the ventilation study and is followed by a 5.3 mCi dose of technetium 99m MAA given intravenously. Eight planar images are acquired for the ventilation and perfusion study. Comparison is made with previous day's chest x-ray. Scintigraphic findings: There is some central bronchial deposition of inspired ventilatory tracer consistent with some degree of COPD. There is a matched ventilation perfusion defect in the left base due to the patient's cardiac enlargement. No mismatched ventilation-perfusion defect is seen. Impression: Low probability scan for pulmonary embolus. Signed by Sagar Siu MD 01/09/2017 12:27 P
[2017-01-09 12:56] LABS: MAGNESIUM LEVEL 2.1 MG/DL (1.8-2.4)
--- NOTE | 2017-01-09 16:37 | IPNPDOC ---
Subjective Date Seen The patient was seen on 01/09/17. Subjective Chief Complaint/HPI The patient is a 86-year-old female admitted with a reason for visit of Chf Exacerbation. General: Denies: Chills, Night Sweats Constitutional: Denies: Chills, Fever Eyes: Denies: Pain, Vision change ENT: Denies: Head Aches, Ear Pain Skin: Denies: Rash, Lesions Pulmonary: Reports: Dyspnea, Denies: Cough Cardiovascular: Denies: Chest Pain, Palpitations Gastrointestinal: Denies: Nausea, Vomiting Genitourinary: Denies: Dysuria, Frequency Hematologic: Denies: Bruising, Bleeding Excessively Objective Physical Examination General Exam: Positive: Alert, Cooperative, No Acute Distress ENT Exam: Positive: Atraumatic, Mucous membr. moist/pink Neck Exam: Positive: JVD Chest Exam: Positive: Rales (faint bibasilar rales noted on exam), Diminished Heart Exam: Positive: Irregular Rhythm, Normal S1, Normal S2 Telemetry: Positive: Atrial fibrillation, Tachycardia Abdomen Exam: Positive: Soft, Negative: Tenderness Extremity Exam: Positive: Other (1+ pitting edema in the L/E BL), Negative: Tenderness Assessment /Plan Plan/VTE VTE Prophylaxis Ordered?: Yes Plan/Urinary Catheter Reason for insertion/continuin: Critical Pt monitoring Plan SOB 2/2 Decompensated Diastolic CHF, Atrial Fibrillation with RVR Initial presentation consistent with decompensated CHF; crackles on auscultation , positive JVD, lower extremity edema Chest x-ray also notable for CHF exacerbation V/Q scan with low probability for pulmonary embolism Patient started on IV Lasix 40 mg every 8 hours She has subsequently diuresed a net negative of 1.5 L at this time, and notes that her respiratory status has significantly improved Continue IV Lasix with holding parameters Daily weights Monitor I's and O's 2-D echocardiogram ordered We will follow-up with the patient's cardio/respiratory status Atrial fibrillation rapid ventricular rate I do suspect that this was secondary to the patient's decompensated CHF state The patient was started on Cardizem in addition to the beta darryn medication she is already taking and her heart rate has been better controlled since Continue Xarelto for anticoagulation Continue to monitor on telemetry Hypertension, stable Continue current regimen Anxiety Continue with Celexa. Gastroesophageal reflux disease (GERD) Continue Protonix. Severe spinal stenosis in the lumbar region, stable Deep vein thrombosis (DVT) prophylaxis Already on Xarelto for anticoagulation Disposition-we will continue to diurese the patient and optimize her volume status while monitoring her on telemetry. PT evaluation has been ordered. Anticipate discharge in the next 24-48 hours pending clinical improvement. VS, I&O, 24H, Fishbone Vital Signs/I&O Vital Signs Date Time Temp Pulse Resp B/P (MAP) Pulse Ox O2 Delivery O2 Flow Rate FiO2 01/09/17 12:00 98.7 104 18 118/64 (82) 97 Room Air I&O- Last 24 Hours up to 6 AM 01/09/17 06:00 Intake Total 780 ml Output Total 2575 ml Balance -1795 ml Laboratory Data 24H LABS Laboratory Tests 2 01/09/17 06:29: Anion Gap 7L, Glomerular Filtration Rate 57.0, Blood Urea Nitrogen 19H, Creatinine 0.98, Sodium Level 138, Potassium Level 3.3#L, Chloride Level 100, Carbon Dioxide Level 31, Calcium Level 9.1, Magnesium Level 2.1 CBC/BMP Laboratory Tests 01/09/17 06:29 Red Blood Count 4.16, Mean Corpuscular Volume 102.1 H, Mean Corpuscular Hemoglobin 34.8 H, Mean Corpuscular Hemoglobin Concent 34.1, Red Cell Distribution Width 13.0, Calcium Level 9.1 Microbiology Microbiology 01/08/17 Blood Culture - Preliminary, Resulted No growth after 24 hours . All specim... 01/08/17 Blood Culture - Preliminary, Resulted No growth after 24 hours . All specim... 01/08/17 Influenza Virus Type A Antigen - Final, Complete 01/08/17 Influenza Virus Type B Antigen - Final, Complete RHONDA TABARES MD January 09, 2017 16:37
[2017-01-09] MEDS: RIVAROXABAN 20 MG TAB (XARELTO) PO SCH (17:28)
[2017-01-09] MEDS: ALPRAZolam 0.25 MG TAB PO PRN (23:49)
[2017-01-10 04:00] VITALS: BP 122/89
[2017-01-10 05:12] LABS: MEAN CORPUSCULAR HEMOGLOBIN 35.6 pg (27.0-33.0); MEAN CORPUSCULAR HGB CONC 33.6 g/dl (32.0-36.5); MEAN CORPUSCULAR VOLUME 105.9 fl (80.0-96.0); RED CELL DISTRIBUTION WIDTH 12.9 % (11.5-14.5); WHITE BLOOD COUNT 5.9 K/mm3 (4.0-10.0)
[2017-01-10 05:27] LABS: POTASSIUM SERUM 3.6 MEQ/L (3.5-5.1)
[2017-01-10 05:36] LABS: GLOMERULAR FILTRATION RATE 34.1 (>32)
[2017-01-10 05:41] LABS: CREATININE FOR GFR 1.53 MG/DL (0.55-1.02)
[2017-01-10 07:44] VITALS: BP 129/80
[2017-01-10] MEDS ORDERED: NS 1,000 ML IV SCH (08:15)
[2017-01-10] MEDS: LACTOBACILLUS ACIDOPHILUS CAP (BACID) PO SCH ×2 (08:18→22:17)
[2017-01-10] MEDS: CitaloPRAM (CeleXA) 20 MG TAB PO SCH (08:18)
[2017-01-10] MEDS: OCUVITE 1 TAB PO SCH (08:19)
[2017-01-10] MEDS: PANTOPRAZOLE 40MG TAB (PROTONIX) PO SCH (08:19)
[2017-01-10] MEDS: METOPROLOL TART 25 MG TABLET PO SCH ×2 (08:19→22:17)
[2017-01-10] MEDS: CETIRIZINE (ZyrTEC) 10 MG TAB PO SCH (08:19)
[2017-01-10 11:51] VITALS: BP 115/87
--- NOTE | 2017-01-10 12:22 | IPNPDOC ---
Subjective Date Seen The patient was seen on 01/10/17. Subjective Chief Complaint/HPI The patient is a 86-year-old female admitted with a reason for visit of Chf Exacerbation. General: Denies: Chills, Night Sweats Constitutional: Denies: Chills, Fever Eyes: Denies: Pain, Vision change ENT: Denies: Head Aches, Ear Pain Skin: Denies: Rash, Lesions Pulmonary: Denies: Dyspnea, Cough Cardiovascular: Denies: Chest Pain, Palpitations Gastrointestinal: Denies: Nausea, Vomiting Genitourinary: Denies: Dysuria, Frequency Hematologic: Denies: Bruising, Bleeding Excessively Objective Physical Examination General Exam: Positive: Alert, Cooperative, No Acute Distress ENT Exam: Positive: Atraumatic, Mucous membr. moist/pink Chest Exam: Positive: Clear to auscultation, Normal air movement, Diminished Heart Exam: Positive: Irregular Rhythm, Normal S1, Normal S2 Telemetry: Positive: Atrial fibrillation, Tachycardia Abdomen Exam: Positive: Soft, Negative: Tenderness Extremity Exam: Positive: Other (1+ pitting edema in the L/E BL), Negative: Tenderness Assessment /Plan Plan/VTE VTE Prophylaxis Ordered?: Yes Plan/Urinary Catheter Reason for insertion/continuin: Critical Pt monitoring Plan SOB 2/2 Decompensated Diastolic CHF, Atrial Fibrillation with RVR Initial presentation consistent with decompensated CHF; crackles on auscultation , positive JVD, lower extremity edema Chest x-ray also notable for CHF exacerbation V/Q scan with low probability for pulmonary embolism s/p IV Lasix She subsequently diuresed a net negative of 1.5 L, and notes that her respiratory status has significantly improved Daily weights Monitor I's and O's 2-D echocardiogram pending We will follow-up with the patient's cardio/respiratory status Atrial fibrillation rapid ventricular rate I do suspect that this was secondary to the patient's decompensated CHF state The patient was started on Cardizem in addition to the beta draryn medication she is already taking and her heart rate has been better controlled since Continue Xarelto for anticoagulation Continue to monitor on telemetry Acute Kidney Injury likely 2/2 Diuretic Use Serum Cr: 1.5 (Baseline Cr ~1.0) Diuretics held Hold Nephrotoxins Gentle IVF Hydration started Will f/u on Renal function Hypertension, stable Continue current regimen Anxiety Continue with Celexa. Gastroesophageal reflux disease (GERD) Continue Protonix. Severe spinal stenosis in the lumbar region, stable Deep vein thrombosis (DVT) prophylaxis Already on Xarelto for anticoagulation Disposition-we will continue to optimize the patient's volume status while monitoring her on telemetry. PT evaluation pending. Anticipate discharge in the next 24-48 hours pending clinical improvement. VS, I&O, 24H, Fishbone Vital Signs/I&O Vital Signs Date Time Temp Pulse Resp B/P (MAP) Pulse Ox O2 Delivery O2 Flow Rate FiO2 01/10/17 11:51 97.4 100 20 115/87 (96) 96 Room Air I&O- Last 24 Hours up to 6 AM 01/10/17 06:00 Intake Total 1680 ml Output Total 1200 ml Balance 480 ml Laboratory Data 24H LABS Laboratory Tests 2 01/10/17 04:56: Anion Gap 10, Glomerular Filtration Rate 34.1, Blood Urea Nitrogen 38#H, Creatinine 1.53#H, Sodium Level 137, Potassium Level 3.6, Chloride Level 101, Carbon Dioxide Level 26, Calcium Level 8.0L CBC/BMP Laboratory Tests 01/10/17 04:56 Red Blood Count 3.80 L, Mean Corpuscular Volume 105.9 H, Mean Corpuscular Hemoglobin 35.6 H, Mean Corpuscular Hemoglobin Concent 33.6, Red Cell Distribution Width 12.9, Calcium Level 8.0 L Microbiology Microbiology 01/08/17 Blood Culture - Preliminary, Resulted No Growth after 48 hours. All Specime... 01/08/17 Blood Culture - Preliminary, Resulted No Growth after 48 hours. All Specime... 01/08/17 Influenza Virus Type A Antigen - Final, Complete 01/08/17 Influenza Virus Type B Antigen - Final, Complete RHONDA TABARES MD January 10, 2017 12:22
[2017-01-10 16:00] VITALS: BP 120/80
[2017-01-10] MEDS: RIVAROXABAN 20 MG TAB (XARELTO) PO SCH (17:24)
[2017-01-10 20:00] VITALS: BP 123/75
[2017-01-10] MEDS: FLUTICASONE PROP 0.05% NASAL SPRAY 16 GM (FLONASE) PRN (22:17)
[2017-01-10] MEDS: ALPRAZolam 0.25 MG TAB PO PRN (23:26)
[2017-01-10 23:59] VITALS: BP 150/76
[2017-01-11 04:40] VITALS: BP 122/81
[2017-01-11 05:35] LABS: MEAN CORPUSCULAR HEMOGLOBIN 35.4 pg (27.0-33.0); MEAN CORPUSCULAR HGB CONC 34.3 g/dl (32.0-36.5); MEAN CORPUSCULAR VOLUME 103.2 fl (80.0-96.0); RED CELL DISTRIBUTION WIDTH 12.9 % (11.5-14.5); WHITE BLOOD COUNT 5.2 K/mm3 (4.0-10.0)
[2017-01-11 05:46] LABS: CALCIUM LEVEL 8.4 MG/DL (8.8-10.2); CREATININE FOR GFR 1.11 MG/DL (0.55-1.02); GLOMERULAR FILTRATION RATE 49.4 (>32); POTASSIUM SERUM 3.5 MEQ/L (3.5-5.1)
[2017-01-11 07:45] VITALS: BP 154/79
[2017-01-11] MEDS: OCUVITE 1 TAB PO SCH (08:24)
[2017-01-11] MEDS: LACTOBACILLUS ACIDOPHILUS CAP (BACID) PO SCH (08:24)
[2017-01-11] MEDS: CitaloPRAM (CeleXA) 20 MG TAB PO SCH (08:24)
[2017-01-11] MEDS: PANTOPRAZOLE 40MG TAB (PROTONIX) PO SCH (08:24)
[2017-01-11] MEDS: CETIRIZINE (ZyrTEC) 10 MG TAB PO SCH (08:25)
[2017-01-11] MEDS: METOPROLOL TART 25 MG TABLET PO SCH (08:25)
[2017-01-11 11:34] VITALS: BP 102/64
[2017-01-11 11:57] VITALS: BP 102/64
[2017-01-11] MEDS ORDERED: METO50TA2 PO (12:45)
--- NOTE | 2017-01-11 15:41 | DS.PDOC ---
Discharge Summary General Date of Admission January 08, 2017 at 12:45 Date of Discharge 01/11/17 Primary Care Physician: Jr Byers Collins Discharge Summary PROCEDURES PERFORMED DURING STAY: None. ADMITTING DIAGNOSES: 1. . Acute decompensated congestive heart failure 2. . Atrial fibrillation with rapid ventricular rate DISCHARGE DIAGNOSES: 1. . Acute decompensated congestive heart failure 2. . Atrial fibrillation with rapid ventricular rate COMPLICATIONS/CHIEF COMPLAINT: Chf Exacerbation. HISTORY OF PRESENT ILLNESS: . 86-year-old female with past medical history of atrial fibrillation on Xarelto, diastolic congestive heart failure, hypertension, GERD, and severe spinal stenosis presented to the ER with a chief complaint of worsening shortness of breath over the last 1 week. The patient went to the urgent care earlier in the day and was found to have a low oxygen saturation. She subsequently came to the ER for further evaluation. Upon arrival, the patient noted that she had worsening shortness of breath while laying flat and noticed an increase in swelling in her lower extremities bilaterally. The patient notes that she was diagnosed with atrial fibrillation 6 weeks prior to her visit to the ER, and was started on Xarelto. The patient denied any complaints of chest pain, palpitations, abdominal pain, or any nausea/vomiting/diarrhea. In the ER, the patient was noted to be in decompensated congestive heart failure and in atrial fibrillation with rapid ventricular rate. She was started on IV Lasix and admitted to the hospitalist service for further evaluation and management. During the patient's hospitalization the patient's symptoms of shortness of breath significantly improved following diuresis. In addition the patient's atrial fibrillation with a rapid ventricular rate improved with volume optimization and titration of her medications. The patient did have an echocardiogram ordered as well for further evaluation of possible valvular dysfunction or wall motion abnormalities. However at this time, the patient is eager to be discharged home and states that she will follow up with echocardiogram results with her primary care physician. The patient has remained hemodynamically stable here over the last 48 hours with her current medication regimen. I've advised the patient to follow-up with her primary care physician for the results of her echocardiogram as she may need an outpatient cardiology referral. I've explained the changes in medications to the patient and her daughter at bedside on discharge and they have both verbalized understanding of the action plan. The patient notes that she will make an appointment with her primary care physician within the next 5-7 days for further evaluation and management. DISCHARGE MEDICATIONS: Please see below. ALLERGIES: Please see below. PHYSICAL EXAMINATION ON DISCHARGE: VITAL SIGNS: Please see below. General Exam: Positive: Alert, Cooperative, No Acute Distress ENT Exam: Positive: Atraumatic, Mucous membr. moist/pink Chest Exam: Positive: Clear to auscultation, Normal air movement Heart Exam: Positive: Irregular Rhythm, Normal S1, Normal S2 Telemetry: Positive: Atrial fibrillation Abdomen Exam: Positive: Soft, Negative: Tenderness Extremity Exam: Positive: Other (1+ pitting edema in the L/E BL), Negative: Tenderness LABORATORY DATA: Please see below. IMAGING: Portable chest: Single view. History: Dyspnea and cough. Comparison study: April 15, 2016. Findings: EKG monitoring electrodes overlie the chest. The heart is enlarged unchanged. Pulmonary vasculature is slightly cephalized. There is blunting of the right lateral and probably, the left lateral pleural angles indicating small bilateral effusions. There is no evidence of infiltrate or pulmonary edema. Impression: Mild cardiomegaly, cephalization, and small effusions. CHF pattern. PROGNOSIS: Medically stable at this time ACTIVITY: As tolerated. DIET: . 2 g low sodium diet DISCHARGE PLAN: DISPOSITION: Home, Self-Care. DISCHARGE INSTRUCTIONS: 1. . Follow-up with primary care physician within 5-7 days for review of echocardiogram results 2. . Return to the ER if symptoms return or worsen DISCHARGE CONDITION: Stable. TIME SPENT ON DISCHARGE: Greater than 30 minutes. Vital Signs/I&Os Vital Signs Date Time Temp Pulse Resp B/P (MAP) Pulse Ox O2 Delivery O2 Flow Rate FiO2 01/11/17 11:57 117 102/64 01/11/17 11:34 97.0 18 99 Room Air I&O- Last 24 Hours up to 6 AM 01/11/17 06:00 Intake Total 2195 ml Output Total 1899 ml Balance 296 ml Laboratory Data Labs 24H Laboratory Tests 2 01/11/17 05:13: Anion Gap 8, Glomerular Filtration Rate 49.4, Blood Urea Nitrogen 32H, Creatinine 1.11H, Sodium Level 137, Potassium Level 3.5, Chloride Level 104, Carbon Dioxide Level 25, Calcium Level 8.4L CBC/BMP Laboratory Tests 01/11/17 05:13 Red Blood Count 3.74 L, Mean Corpuscular Volume 103.2 H, Mean Corpuscular Hemoglobin 35.4 H, Mean Corpuscular Hemoglobin Concent 34.3, Red Cell Distribution Width 12.9, Calcium Level 8.4 L Microbiology Microbiology 01/08/17 Blood Culture - Preliminary, Resulted No Growth after 72 hours. All specime... 01/08/17 Blood Culture - Preliminary, Resulted No Growth after 72 hours. All specime... 01/08/17 Influenza Virus Type A Antigen - Final, Complete 01/08/17 Influenza Virus Type B Antigen - Final, Complete Discharge Medications Scheduled (Vision Formula/Lutein) 1 Tab Tab, 1 TAB PO DAILY, (Reported) Calcium/Vitamin D (Calcium 600 + D 600-400 mg-Unit) 1 Tab Tab, 1 TAB PO BID, ( Reported) Citalopram Hydrobromide (Celexa) 20 Mg Tab, 20 MG PO QAM Felodipine (Felodipine ER) 5 Mg Tab, 5 MG PO DAILY, (Reported) Lactobacillus Acidophilus (Bacid) 1 Tab Tab, 1 TAB PO BID, (Reported) Metoprolol Tartrate (Metoprolol Tartrate) 50 Mg Tab, 50 MG PO BID Rivaroxaban (Xarelto) 20 Mg Tab, 20 MG PO QPM, (Reported) Scheduled PRN Acetaminophen (Tylenol 8 Hour Arthritis) 650 Mg Tab, 650 MG PO Q8H PRN for PAIN, (Reported) Alprazolam (Alprazolam) 0.25 Mg Tab, 0.25 MG PO BID PRN for ANXIETY, (Reported) Allergies Coded Allergies: Ciprofloxacin (Verified Allergy, Intermediate, RASH, 01/08/17) Morphine (Verified Allergy, Mild, HIVES, 01/08/17) Codeine (Verified Adverse Reaction, Mild, UPSET STOMACH, 01/08/17) RHONDA TABARES MD January 11, 2017 15:41
--- NOTE | 2017-01-12 20:07 | ECHO ---
DATE OF PROCEDURE: 01/10/2017 REFERRING PHYSICIAN: Dr. Christopher Bhagat PATIENT LOCATION: Room 3224 REASON FOR ECHOCARDIOGRAM: Shortness of breath. 2D MEASUREMENTS: IVS: 1.2 cm LV: 3.8 cm LVPW: 1.2 cm. LA: 3.1 cm Aorta: 3.3 cm IVC: 1.7 cm DOPPLER MEASUREMENTS: Peak velocity across the aortic valve: 0.82 m/s Peak velocity across the LVOT: 0.65 m/s Mitral E: 0.77 2D COMMENTS: 1. Normal left ventricular size, wall thickness, and a normal global left ventricular systolic function. Left ventricular systolic ejection fraction is estimated at 60-65%. 2. Subjectively, the left atrium appeared to mildly enlarged. Normal right atrium and right ventricle. 3. The atrial septum appeared to be normal without evidence of defect or shunt. 4. Normal aortic root. 5. Small pericardial effusion noted, no evidence of cardiac tamponade. 6. Mildly calcified aortic valve with normal leaflet excursion. Mildly calcified mitral annulus with normal anterior mitral valve leaflet motion. Normal tricuspid valve. The pulmonic valve and proximal pulmonary artery branches were not well visualized. 7. The inferior vena cava was normal in size, central venous pressure is most likely normal. IMPRESSION: 1. Normal global left ventricular systolic function. Assessment of the left ventricular diastolic function was limited, patient was in atrial fibrillation. 2. Aortic valve sclerosis with trace aortic regurgitation, but no aortic stenosis. 3. Mild mitral regurgitation. 4. Small pericardial effusion noted, no evidence of cardiac tamponade.
== END 2017-01-11 14:20 | disposition home or self-care (01) | DRG 293 ==
LOC: M ED 09:57 → M ED INP 12:45 → M PCU 01-09 00:25
PROVIDERS: ADMIT Internal Medicine; ATTEND Internal Medicine
DX: I50.31 Acute diastolic (congestive) heart failure (principal); I44.0 Atrioventricular block, first degree; I48.91 Unspecified atrial fibrillation; I11.9 Hypertensive heart disease without heart failure; K21.9 Gastro-esophageal reflux disease without esophagitis; Z79.899 Other long term (current) drug therapy; Z66 Do not resuscitate; Z88.5 Allergy status to narcotic agent; Z88.1 Allergy status to other antibiotic agents; Z88.8 Allergy status to other drugs, medicaments and biological substances; M48.06 Spinal stenosis, lumbar region

== ENCOUNTER → 2017-01-23 | Outpatient (CLI) | payer MEDICARE ==
[~2017-01-23] MED LIST changes: +ALPR0.25 PO; +BACITAB3 PO; +METO50TA2 PO; +XARE20TA PO
--- NOTE | 2017-01-29 00:08 | ECWPNPC ---
PATIENT NAME: SHELBIE CORTEZ : 1930 GENDER: FEMALE VISIT DATE: 01/23/2017 DISCHARGE DATE: 01/23/171518 VISIT LOCKED DATE TIME: PHYSICIAN: EVAN ORTEGA RESOURCE: EVAN ORTEGA REASON FOR APPOINTMENT 1. BACK PAIN HISTORY OF PRESENT ILLNESS HISTORY OF PRESENT ILLNESS: PAIN THE PATIENT DESCRIBES THE PAIN... 86 YEAR OLD FEMALE PATIENT WITH HISTORY OF CHRONIC BACK PAIN. PATIENT DESCRIBES THE PAIN THROBBING AND HAVING IT ALL THE TIME WITH A PAIN SCORE OF 8/10 ON TODAY'S VISIT. MRS. MILAN STATES THAT SHE STOPPED USING THE GABAPENTIN DUE TO IT NOT AIDING IN PAIN RELIEF. PATIENT REPORTS THAT SHE HAS A CONSTANT RADIATING PAIN DOWN HER LEGS THAT INCREASES WHEN SHE STANDS. PATIENT DENIES UNEXPLAINABLE WEIGHT LOSS, FEVER, CHILLS, NEW CHANGES ON HER URINARY OR BOWEL CONTROL. FALL RISK SCREENING: SCREENING :NO FALLS IN THE PAST YEAR CURRENT MEDICATIONS TAKING TYLENOL 500 MG TABLET 2 TABLET NEEDED ORALLY 3 TIMES A DAY NEEDED TAKING CALCIUM 600 MG TABLET 1 TABLET WITH MEALS ORALLY TWICE A DAY TAKING METOPROLOL SUCCINATE ER 50 MG TABLET EXTENDED RELEASE 24 HOUR 1 TABLET ORALLY BID TAKING FELODIPINE ER 5 MG TABLET EXTENDED RELEASE 24 HOUR 1 TABLET ORALLY ONCE A DAY TAKING CITALOPRAM HYDROBROMIDE 10 MG TABLET 1 TABLET ORALLY ONCE A DAY TAKING VISION FORMULA TABLET 1 TABLET ORALLY DAILY TAKING GAS-X 125 MG CAPSULE 1 CAPSULE AFTER MEALS AND AT BEDTIME NEEDED ORALLY FOUR TIMES A DAY TAKING PROBIOTIC CAPSULE 1 TABLET ORALLY DAILY TAKING XARELTO 20 MG TABLET 1 TABLET WITH FOOD ORALLY ONCE A DAY NOT-TAKING CELEBREX 100 MG CAPSULE 1 CAPSULE ORALLY FOR PAIN ONCE A DAY NOT-TAKING GABAPENTIN 300 MG CAPSULE 1 CAPSULE ORALLY THREE TIMES DAILY FOR PAIN MDD3, NOTES: HAS RUN OUT NOT-TAKING IBUPROFEN 200 MG TABLET 3 TABLET NEEDED ORALLY 3 TIMES A DAY NEEDED NOT-TAKING ASPIRIN ADULT LOW STRENGTH 81 MG TABLET DELAYED RELEASE 1 TABLET ORALLY ONCE A DAY NOT-TAKING ULTRACET 37.5-325 MG TABLET 1 TABLETS NEEDED ORALLY EVERY 6 HRS FOR PAIN MDD4 NOT-TAKING CETIRIZINE HCL 10 MG TABLET 1 TABLET NEEDED ORALLY ONCE A DAY MEDICATION LIST REVIEWED AND RECONCILED WITH THE PATIENT PAST MEDICAL HISTORY TACHYCARDIA SYNCOPE IN 2013 - FIRST DEGREE AV BLOCK GERD HTN SPINAL STENOSIS ANXIETY MILD STROKE ARTHRITIS ALLERGIES MORPHINE SULFATE: HIVES: ALLERGY ENALAPRIL: NAUSEA/VOMITING: SIDE EFFECTS ULTRAM: NAUSEA/VOMITING: SIDE EFFECTS BENICAR: NAUSEA/VOMITING: SIDE EFFECTS CODEINE SULFATE: NAUSEA: SIDE EFFECTS CIPROFLOXACIN: NAUSEA: SIDE EFFECTS SULFA (FOR ALLERGY USE ONLY): NAUSEA: SIDE EFFECTS BACTRIM: NAUSEA: SIDE EFFECTS OXYCODONE-ACETAMINOPHEN: NAUSEA/VOMITING: SIDE EFFECTS SURGICAL HISTORY NO SURGICAL HISTORY DOCUMENTED. FAMILY HISTORY NO FAMILY HISTORY DOCUMENTED. SOCIAL HISTORY GENERAL: PAIN CLINIC PFS, CLERGY, PUBLIC HEALTH REFERRALS CLERGY REFERRAL NEEDED?NO WAS THE PROVIDER NOTIFIED OF ANY PERTINENT INFO?NO PFS REFERRAL NEEDED?NO PUBLIC HEALTH REFERRAL NEEDED?NO PATIENT: ____. HOSPITALIZATION/MAJOR DIAGNOSTIC PROCEDURE SEE ABOVE REVIEW OF SYSTEMS CONSTITUTIONAL: ANY CHANGE IN YOUR MEDICAL CONDITION? YES, AFIB AND HEART FAILURE, NEBULIZER EVERY 4 HOURS . CHILLS NO . FEVER NO . INFECTION: DO YOU HAVE NEW INFECTIONS? NO . DO YOU HAVE HISTORY OF MRSA? NO . MUSCULOSKELETAL: ANY NEW PATTERNS OF PAIN OR NUMBNESS? NO . GASTROENTEROLOGY: ANY NEW CHANGE IN BOWEL CONTROL? NO . GENITOURINARY: ANY NEW CHANGE IN BLADDER CONTROL? NO . IS THERE A CHANCE YOU COULD BE ? NO . HEMATOLOGY/LYMPH: DO YOU TAKE ANY BLOOD THINNERS? (FOR EXAMPLE- COUMADIN, PLAVIX, AGGRENOX, PLATEL, PRADAXA, OR XARELTO) NO . WHEN WAS YOUR LAST DOSE? DATE: TIME: . NEUROLOGY: HAVE YOU FALLEN IN THE PAST 6 MONTHS? NO . ANY NEW EXTREMITY NUMBNESS OR WEAKNESS? NO . CARDIOLOGY: DO YOU HAVE A PACEMAKER OR DEFIBRILLATOR? NO . RESPIRATORY: HAVE YOU BEEN SICK IN THE PAST WEEK? NO . FEVER NO . FLU LIKE SYMPTOMS? NO . COUGH NO . INTEGUMENTARY: DO YOU HAVE ANY RASHES OR OPEN SORES? NO . ALLERGIC/IMMUNO: ARE YOU ALLERGIC TO SHELLFISH OR IV DYE? NO . ANY NEW ALLERGIES? NO . PSYCHIATRIC: DO YOU HAVE THOUGHTS OF HURTING YOURSELF OR SOMEONE ELSE? NO . ARE YOU ABUSED, NEGLECTED, OR IN AN UNSAFE ENVIRONMENT? NO . ENDOCRINOLOGY: ARE YOU DIABETIC? NO . OTHER: DO YOU NEED ANY PRESCRIPTIONS? NO . IF YES, PLEASE LIST: ____ . ANY NEW PROBLEMS WITH YOUR MEDICATIONS? NO . WHEN DID YOU LAST EAT? ____ . WHEN DID YOU LAST DRINK? ____ . WHAT DID YOU LAST DRINK? ____ . NAME OF PERSON DRIVING YOU HOME? ____ . DO YOU HAVE ANY OTHER QUESTIONS OR CONCERNS NO . REVIEWED BY: PROVIDER: EVAN ORTEGA MD . VITAL SIGNS WT 138.6 LBS, HT 61 IN, BMI 26.19 INDEX, BP 116/90 MM HG, HR 114 /MIN, RR 18 /MIN, TEMP 97.7 F, OXYGEN SAT % 96%, NA INITIALS TL 1318HR RANGES FROM 114-128, RN Ramos. AWARE- TL. EXAMINATION : PATIENT IS ALERT O X [address] DONE ON 04/15/16 OF THE LUMBAR SPINE SHOWS SEVERE CANAL STENOSIS AT L1-L2 AND L2-L3 AND MODERATE STENOSIS AT L3-L4. CT OF THE THORACIC SPINE DONE ON 04/15/16 SHOWS DEGENERATIVE CHANGES. 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 CORTEZ'S PAIN MANAGEMENT CASE. AT THIS TIME I WOULD LIKE THE PATIENT TO USE TRAMADOL FOR PAIN MANAGEMENT. PATIENT REPORTS USING IT IN THE PAST AND STATED THAT IT DID NOT MAKE HER SICK. PATIENT DENIES ABUSE OF ANY MEDICATION, DENIES USE IF ILLEGAL SUBSTANCES AND STATES SHE WILL ONLY USE THE MEDICATION FOR PAIN MANAGEMENT. PATIENT WAS ADVISED THAT SHE IS ABLE TO USE TWO WHILE FAMILY IS PRESENT IF THE PAIN PERSISTS. PATIENT ALSO ADVISED TO STOP THE MEDICATION IS SHE HAS ANY ADVERSE SIDE EFFECTS. MRS. CORTEZ WILL RETURN TO THE CLINIC IN 3 WEEKS TO DISCUSS HOW THE MEDICATION HELPED HER. INSTRUCTIONS WERE GIVEN, QUESTIONS WERE ANSWERED, PATIENT REPORTS UNDERSTANDING AND AGREES WITH THE PLAN. I, TREVOR BARON, DOCUMENTED THE ABOVE INFORMATION ACTING A SCRIBE FOR DR. ORTEGA. I HAVE REVIEWED THE ABOVE DOCUMENT, WRITTEN BY TREVOR DAVILA AND I VERIFY THAT IT IS ACCURATE. OTHERS START TRAMADOL HCL TABLET, 50 MG, 1 TABLET NEEDED, ORALLY FOR PAIN, EVERY 6 HRS MDD2, 30 DAY(S), 15, REFILLS 0 PROCEDURE CODES FA211 ESTABILISHED PATIENT [facility] FACILITY CHARGE I1258 DOC MEDS VERIFIED W/PT OR RE W4581 PAIN ASSESS POS TOOL F/U PLAN DOC DISPOSITION & COMMUNICATION FOLLOW UP 3 WEEKS ELECTRONICALLY SIGNED BY EVAN ORTEGA MD ON 01/28/2017 AT 05:31 PM EDT DISCLAIMER : THIS IS A VISIT SUMMARY EXTRACTED FROM THE [email or web address] CHART. IT IS NOT A COPY OF THE [employer] PROGRESS NOTE. LEIGHA
== END ==
LOC: M PAIN 13:00
PROVIDERS: ATTEND Anesthesiology
DX: M47.816 Spondylosis without myelopathy or radiculopathy, lumbar region (principal); M47.817 Spondylosis without myelopathy or radiculopathy, lumbosacral region; G89.29 Other chronic pain; M54.9 Dorsalgia, unspecified; Z88.5 Allergy status to narcotic agent; Z88.6 Allergy status to analgesic agent; Z88.2 Allergy status to sulfonamides; Z88.8 Allergy status to other drugs, medicaments and biological substances

== ENCOUNTER 2017-02-14 18:49 | Emergency (ER) | payer MEDICARE ==
[~2017-02-14] VITALS: Ht 152.4 cm; Wt 61.0 kg
[~2017-02-14 18:49] MED LIST changes: +BACITAB PO; -BACITAB3 PO; +FELO5TAB PO; -FELO5TAB3 PO; +IBUP1TAB6 PO; -IBUP60TA PO; +METO25TA4 PO; -METO25TAB PO; -METO50TA2 PO; +METO50TA7 PO
[2017-02-14] MEDS ORDERED: dexameTHASONE 20 MG/5 ML VIAL (J1100) IV ONE (23:15)
--- NOTE | 2017-02-14 23:20 | REPUSA ---
CT of the facial bones without contrast Clinical history: Pain, injury. Technique: Multiple axial CT images were obtained through the facial bones and paranasal sinuses util izing 3 mm axial slices without administration of contrast. Coronal and sagittal reconstructions were also obtained. Findings: The visualized paranasal sinuses are clear. The osteomeatal complexes are patent bilaterall y. The nasal septum is midline. The visualized mastoid air cells are clear. The osseous structures do not demonstrate any acute abnormalities. The superficial soft tissues are within normal limits. Impression: Unremarkable CT examination of the facial bones and paranasal sinuses.
[2017-02-14] MEDS ORDERED: PRED20TA PO (23:57)
[2017-02-15 00:15] VITALS: BP 136/89
== END 2017-02-15 00:16 | disposition home or self-care (01) ==
LOC: M ED 20:01
DX: R09.81 Nasal congestion (principal); I11.0 Hypertensive heart disease with heart failure; I48.91 Unspecified atrial fibrillation; Z88.1 Allergy status to other antibiotic agents; Z88.5 Allergy status to narcotic agent
CPT/HCPCS: 70486; 96374; 99283; J1100

== ENCOUNTER → 2017-02-23 | Outpatient (CLI) | payer MEDICARE ==
[~2017-02-23] MED LIST changes: +PRED20TA PO
--- NOTE | 2017-03-05 00:08 | ECWPNPC ---
PATIENT NAME: SHELBIE CORTEZ : 1930 GENDER: FEMALE VISIT DATE: 02/23/2017 DISCHARGE DATE: 02/23/17 1423 VISIT LOCKED DATE TIME: PHYSICIAN: EVAN ORTEGA RESOURCE: EVAN ORTEGA REASON FOR APPOINTMENT 1. LOW BACK PAIN HISTORY OF PRESENT ILLNESS HISTORY OF PRESENT ILLNESS: PAIN THE PATIENT DESCRIBES THE PAIN... 86 YEAR OLD FEMALE PATIENT WITH HISTORY OF CHRONIC BACK PAIN. PATIENT DESCRIBES THE PAIN THROBBING AND HAVING IT ALL THE TIME WITH A PAIN SCORE OF 8/10 ON TODAY'S VISIT. MRS. CORTEZ STATES THAT EVEN USING TWO TRAMADOL DOES NOT AID IN PAIN RELIEF IN HER LOWER BACK. PATIENT REPORTS THAT SHE HAS A CONSTANT RADIATING PAIN DOWN HER LEGS THAT INCREASES WHEN SHE STANDS. PATIENT DENIES UNEXPLAINABLE WEIGHT LOSS, FEVER, CHILLS, NEW CHANGES ON HER URINARY OR BOWEL CONTROL. FALL RISK SCREENING: SCREENING :NO FALLS IN THE PAST YEAR CURRENT MEDICATIONS TAKING TRAMADOL HCL 50 MG TABLET 1 TABLET NEEDED ORALLY FOR PAIN EVERY 6 HRS MDD2 TAKING TYLENOL 500 MG TABLET 2 TABLET NEEDED ORALLY 3 TIMES A DAY NEEDED TAKING CALCIUM 600 MG TABLET 1 TABLET WITH MEALS ORALLY TWICE A DAY TAKING FELODIPINE ER 5 MG TABLET EXTENDED RELEASE 24 HOUR 1 TABLET ORALLY ONCE A DAY TAKING METOPROLOL SUCCINATE ER 50 MG TABLET EXTENDED RELEASE 24 HOUR 1 TABLET ORALLY BID TAKING CITALOPRAM HYDROBROMIDE 10 MG TABLET 1 TABLET ORALLY ONCE A DAY TAKING VISION FORMULA TABLET 1 TABLET ORALLY DAILY TAKING GAS-X 125 MG CAPSULE 1 CAPSULE AFTER MEALS AND AT BEDTIME NEEDED ORALLY FOUR TIMES A DAY TAKING PROBIOTIC CAPSULE 1 TABLET ORALLY DAILY TAKING XARELTO 20 MG TABLET 1 TABLET WITH FOOD ORALLY ONCE A DAY NOT-TAKING CELEBREX 100 MG CAPSULE 1 CAPSULE ORALLY FOR PAIN ONCE A DAY NOT-TAKING GABAPENTIN 300 MG CAPSULE 1 CAPSULE ORALLY THREE TIMES DAILY FOR PAIN MDD3, NOTES: HAS RUN OUT NOT-TAKING IBUPROFEN 200 MG TABLET 3 TABLET NEEDED ORALLY 3 TIMES A DAY NEEDED NOT-TAKING ASPIRIN ADULT LOW STRENGTH 81 MG TABLET DELAYED RELEASE 1 TABLET ORALLY ONCE A DAY NOT-TAKING ULTRACET 37.5-325 MG TABLET 1 TABLETS NEEDED ORALLY EVERY 6 HRS FOR PAIN MDD4 NOT-TAKING CETIRIZINE HCL 10 MG TABLET 1 TABLET NEEDED ORALLY ONCE A DAY MEDICATION LIST REVIEWED AND RECONCILED WITH THE PATIENT PAST MEDICAL HISTORY TACHYCARDIA SYNCOPE IN 2012 - FIRST DEGREE AV BLOCK GERD HTN SPINAL STENOSIS ANXIETY MILD STROKE ARTHRITIS ALLERGIES MORPHINE SULFATE: HIVES: ALLERGY ENALAPRIL: NAUSEA/VOMITING: SIDE EFFECTS ULTRAM: NAUSEA/VOMITING: SIDE EFFECTS BENICAR: NAUSEA/VOMITING: SIDE EFFECTS CODEINE SULFATE: NAUSEA: SIDE EFFECTS CIPROFLOXACIN: NAUSEA: SIDE EFFECTS SULFA (FOR ALLERGY USE ONLY): NAUSEA: SIDE EFFECTS BACTRIM: NAUSEA: SIDE EFFECTS OXYCODONE-ACETAMINOPHEN: NAUSEA/VOMITING: SIDE EFFECTS REVIEW OF SYSTEMS REVIEWED BY: PROVIDER: EVAN ORTEGA MD . CONSTITUTIONAL: ANY CHANGE IN YOUR MEDICAL CONDITION? NO . CHILLS NO . FEVER NO . INFECTION: DO YOU HAVE NEW INFECTIONS? NO . DO YOU HAVE HISTORY OF MRSA? NO . MUSCULOSKELETAL: ANY NEW PATTERNS OF PAIN OR NUMBNESS? NO . GASTROENTEROLOGY: ANY NEW CHANGE IN BOWEL CONTROL? NO . GENITOURINARY: ANY NEW CHANGE IN BLADDER CONTROL? NO . IS THERE A CHANCE YOU COULD BE ? NO . HEMATOLOGY/LYMPH: DO YOU TAKE ANY BLOOD THINNERS? (FOR EXAMPLE- COUMADIN, PLAVIX, AGGRENOX, PLATEL, PRADAXA, OR XARELTO) NO . WHEN WAS YOUR LAST DOSE? DATE: TIME: . NEUROLOGY: HAVE YOU FALLEN IN THE PAST 6 MONTHS? NO . ANY NEW EXTREMITY NUMBNESS OR WEAKNESS? NO . CARDIOLOGY: DO YOU HAVE A PACEMAKER OR DEFIBRILLATOR? NO . RESPIRATORY: HAVE YOU BEEN SICK IN THE PAST WEEK? NO . FEVER NO . FLU LIKE SYMPTOMS? NO . COUGH NO . INTEGUMENTARY: DO YOU HAVE ANY RASHES OR OPEN SORES? NO . ALLERGIC/IMMUNO: ARE YOU ALLERGIC TO SHELLFISH OR IV DYE? NO . ANY NEW ALLERGIES? NO . PSYCHIATRIC: DO YOU HAVE THOUGHTS OF HURTING YOURSELF OR SOMEONE ELSE? NO . ARE YOU ABUSED, NEGLECTED, OR IN AN UNSAFE ENVIRONMENT? NO . ENDOCRINOLOGY: ARE YOU DIABETIC? NO . OTHER: DO YOU NEED ANY PRESCRIPTIONS? NO . IF YES, PLEASE LIST: ____ . ANY NEW PROBLEMS WITH YOUR MEDICATIONS? NO . WHEN DID YOU LAST EAT? ____ . WHEN DID YOU LAST DRINK? ____ . WHAT DID YOU LAST DRINK? ____ . NAME OF PERSON DRIVING YOU HOME? ____ . DO YOU HAVE ANY OTHER QUESTIONS OR CONCERNS NO . VITAL SIGNS WT 134.6 LBS, HT 61 IN, BMI 25.43 INDEX, BP 112/75 MM HG, HR 115 /MIN, RR 18 /MIN, TEMP 98.2 F, OXYGEN SAT % 97%, NA INITIALS AW 1331, REVIEWED BY: KG. EXAMINATION : PATIENT IS ALERT O X [address] DONE ON 04/15/16 OF THE LUMBAR SPINE SHOWS SEVERE CANAL STENOSIS AT L1-L2 AND L2-L3 AND MODERATE STENOSIS AT L3-L4. CT OF THE THORACIC SPINE DONE ON 04/15/16 SHOWS DEGENERATIVE CHANGES. 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 CORTEZ'S PAIN MANAGEMENT CASE. AT THIS TIME I WOULD LIKE THE PATIENT TO USE NUCYNTA FOR PAIN MANAGEMENT. PATIENT DENIES ABUSE OF ANY MEDICATION, DENIES USE IF ILLEGAL SUBSTANCES AND STATES SHE WILL ONLY USE THE MEDICATION FOR PAIN MANAGEMENT. PATIENT ALSO ADVISED TO STOP THE MEDICATION IS SHE HAS ANY ADVERSE SIDE EFFECTS. MRS. CORTEZ WILL RETURN TO THE CLINIC IN 3 WEEKS TO DISCUSS HOW THE MEDICATION HELPED HER. INSTRUCTIONS WERE GIVEN, QUESTIONS WERE ANSWERED, PATIENT REPORTS UNDERSTANDING AND AGREES WITH THE PLAN. I, TREVOR BARON, DOCUMENTED THE ABOVE INFORMATION ACTING A SCRIBE FOR DR. ORTEGA. I HAVE REVIEWED THE ABOVE DOCUMENT, WRITTEN BY TREVOR DAVILA AND I VERIFY THAT IT IS ACCURATE. OTHERS START NUCYNTA TABLET, 50 MG, 1 TO 2 TABLET, ORALLY, EVERY 6 HRS NEEDED FOR PAIN MDD4, 10 DAYS, 20, REFILLS 0 PREVENTIVE MEDICINE PAIN CLINIC TEACHING: MEDICATIONS NUCYNTA TEACHING INFORMATION PRINTED AND GIVEN TO PATIENT AND DAUGHTER. . PROCEDURE CODES FA211 ESTABILISHED PATIENT [facility] FACILITY CHARGE G8427 DOC MEDS VERIFIED W/PT OR RE G8730 PAIN ASSESS POS TOOL F/U PLAN DOC DISPOSITION & COMMUNICATION FOLLOW UP 3 WEEKS ELECTRONICALLY SIGNED BY EVAN ORTEGA MD ON 03/04/2017 AT 07:43 PM EDT DISCLAIMER : THIS IS A VISIT SUMMARY EXTRACTED FROM THE [employer] CHART. IT IS NOT A COPY OF THE [employer] PROGRESS NOTE. MACOD
== END ==
LOC: M PAIN 13:20
PROVIDERS: ATTEND Anesthesiology
DX: M47.816 Spondylosis without myelopathy or radiculopathy, lumbar region (principal); M47.817 Spondylosis without myelopathy or radiculopathy, lumbosacral region; Z79.891 Long term (current) use of opiate analgesic; Z79.899 Other long term (current) drug therapy; Z88.5 Allergy status to narcotic agent; Z88.8 Allergy status to other drugs, medicaments and biological substances; Z88.1 Allergy status to other antibiotic agents

== ENCOUNTER → 2017-04-13 | Outpatient (CLI) | payer MEDICARE ==
--- NOTE | 2017-05-01 00:07 | ECWPNPC ---
PATIENT NAME: SHELBIE CORTEZ : 1930 GENDER: FEMALE VISIT DATE: 04/13/2017 DISCHARGE DATE: 04/13/17 1506 VISIT LOCKED DATE TIME: PHYSICIAN: EVAN ORTEGA RESOURCE: EVAN ORTEGA REASON FOR APPOINTMENT 1. MEDS HISTORY OF PRESENT ILLNESS HISTORY OF PRESENT ILLNESS: PAIN THE PATIENT DESCRIBES THE PAIN... 86 YEAR OLD FEMALE PATIENT WITH HISTORY OF CHRONIC BACK PAIN. PATIENT DESCRIBES THE PAIN HAVING IT ALL THE TIME WITH A PAIN SCORE OF 8/10 ON TODAY'S VISIT. PATIENT REPORTS THAT THE NUCYNTA IS WORKING AND IS AIDING IN SOME PAIN RELIEF. PATIENT DENIES ANY ABUSE TO THE MEDICATION AND IS TAKING IT PRESCRIBED FOR PAIN MANAGEMENT. PATIENT REPORTS THAT SHE HAS A CONSTANT RADIATING PAIN DOWN HER LEGS. PATIENT DENIES UNEXPLAINABLE WEIGHT LOSS, FEVER, CHILLS, NEW CHANGES ON HER URINARY OR BOWEL CONTROL. FALL RISK SCREENING: SCREENING :NO FALLS IN THE PAST YEAR CURRENT MEDICATIONS TAKING TYLENOL 500 MG TABLET 2 TABLET NEEDED ORALLY 3 TIMES A DAY NEEDED TAKING CALCIUM 600 MG TABLET 1 TABLET WITH MEALS ORALLY TWICE A DAY TAKING FELODIPINE ER 5 MG TABLET EXTENDED RELEASE 24 HOUR 1 TABLET ORALLY ONCE A DAY TAKING METOPROLOL SUCCINATE ER 50 MG TABLET EXTENDED RELEASE 24 HOUR 1 TABLET ORALLY BID TAKING CITALOPRAM HYDROBROMIDE 10 MG TABLET 1 TABLET ORALLY ONCE A DAY TAKING VISION FORMULA TABLET 1 TABLET ORALLY DAILY TAKING GAS-X 125 MG CAPSULE 1 CAPSULE AFTER MEALS AND AT BEDTIME NEEDED ORALLY FOUR TIMES A DAY TAKING PROBIOTIC CAPSULE 1 TABLET ORALLY DAILY TAKING XARELTO 20 MG TABLET 1 TABLET WITH FOOD ORALLY ONCE A DAY TAKING NUCYNTA 50 MG TABLET 1 TO 2 TABLET ORALLY EVERY 6 HRS NEEDED FOR PAIN MDD4 NOT-TAKING TRAMADOL HCL 50 MG TABLET 1 TABLET NEEDED ORALLY FOR PAIN EVERY 6 HRS MDD2 NOT-TAKING CELEBREX 100 MG CAPSULE 1 CAPSULE ORALLY FOR PAIN ONCE A DAY NOT-TAKING GABAPENTIN 300 MG CAPSULE 1 CAPSULE ORALLY THREE TIMES DAILY FOR PAIN MDD3, NOTES: HAS RUN OUT NOT-TAKING IBUPROFEN 200 MG TABLET 3 TABLET NEEDED ORALLY 3 TIMES A DAY NEEDED NOT-TAKING ASPIRIN ADULT LOW STRENGTH 81 MG TABLET DELAYED RELEASE 1 TABLET ORALLY ONCE A DAY NOT-TAKING ULTRACET 37.5-325 MG TABLET 1 TABLETS NEEDED ORALLY EVERY 6 HRS FOR PAIN MDD4 NOT-TAKING CETIRIZINE HCL 10 MG TABLET 1 TABLET NEEDED ORALLY ONCE A DAY MEDICATION LIST REVIEWED AND RECONCILED WITH THE PATIENT PAST MEDICAL HISTORY TACHYCARDIA SYNCOPE IN 2013 - FIRST DEGREE AV BLOCK GERD HTN SPINAL STENOSIS ANXIETY MILD STROKE ARTHRITIS ALLERGIES MORPHINE SULFATE: HIVES: ALLERGY ENALAPRIL: NAUSEA/VOMITING: SIDE EFFECTS ULTRAM: NAUSEA/VOMITING: SIDE EFFECTS BENICAR: NAUSEA/VOMITING: SIDE EFFECTS CODEINE SULFATE: NAUSEA: SIDE EFFECTS CIPROFLOXACIN: NAUSEA: SIDE EFFECTS SULFA (FOR ALLERGY USE ONLY): NAUSEA: SIDE EFFECTS BACTRIM: NAUSEA: SIDE EFFECTS OXYCODONE-ACETAMINOPHEN: NAUSEA/VOMITING: SIDE EFFECTS REVIEW OF SYSTEMS REVIEWED BY: PROVIDER: EVAN ORTEGA MD . CONSTITUTIONAL: ANY CHANGE IN YOUR MEDICAL CONDITION? NO . CHILLS NO . FEVER NO . INFECTION: DO YOU HAVE NEW INFECTIONS? NO . DO YOU HAVE HISTORY OF MRSA? NO . MUSCULOSKELETAL: ANY NEW PATTERNS OF PAIN OR NUMBNESS? NO . GASTROENTEROLOGY: ANY NEW CHANGE IN BOWEL CONTROL? NO . GENITOURINARY: ANY NEW CHANGE IN BLADDER CONTROL? NO . IS THERE A CHANCE YOU COULD BE ? NO . HEMATOLOGY/LYMPH: DO YOU TAKE ANY BLOOD THINNERS? (FOR EXAMPLE- COUMADIN, PLAVIX, AGGRENOX, PLATEL, PRADAXA, OR XARELTO) YES . WHEN WAS YOUR LAST DOSE? DATE: TIME: . NEUROLOGY: HAVE YOU FALLEN IN THE PAST 6 MONTHS? NO . ANY NEW EXTREMITY NUMBNESS OR WEAKNESS? NO . CARDIOLOGY: DO YOU HAVE A PACEMAKER OR DEFIBRILLATOR? NO . RESPIRATORY: HAVE YOU BEEN SICK IN THE PAST WEEK? NO . FEVER NO . FLU LIKE SYMPTOMS? NO . COUGH NO . INTEGUMENTARY: DO YOU HAVE ANY RASHES OR OPEN SORES? NO . ALLERGIC/IMMUNO: ARE YOU ALLERGIC TO SHELLFISH OR IV DYE? NO . ANY NEW ALLERGIES? NO . PSYCHIATRIC: DO YOU HAVE THOUGHTS OF HURTING YOURSELF OR SOMEONE ELSE? NO . ARE YOU ABUSED, NEGLECTED, OR IN AN UNSAFE ENVIRONMENT? NO . ENDOCRINOLOGY: ARE YOU DIABETIC? NO . OTHER: DO YOU NEED ANY PRESCRIPTIONS? NO . IF YES, PLEASE LIST: ____ . ANY NEW PROBLEMS WITH YOUR MEDICATIONS? NO . WHEN DID YOU LAST EAT? ____ . WHEN DID YOU LAST DRINK? ____ . WHAT DID YOU LAST DRINK? ____ . NAME OF PERSON DRIVING YOU HOME? ____ . DO YOU HAVE ANY OTHER QUESTIONS OR CONCERNS YES, NUCYENTA DID HELP THE PAIN / TRAMADOL DID NOT HELP AT ALL, NOT TAKING ANYMORE . VITAL SIGNS WT 13.4 LBS, HT 61 IN, BMI 2.53 INDEX, BP 124/73 MM HG, HR 82 /MIN, RR 18 /MIN, TEMP 98.3 F, OXYGEN SAT % 94%, NA INITIALS AW 1445. EXAMINATION : PATIENT IS ALERT O X [address] THAT WAS DONE ON 04/15/16 OF THE LUMBAR SPINE SHOWS SEVERE CANAL STENOSIS AT L1-L2 AND L2-L3 AND MODERATE STENOSIS AT L3-L4. CT OF THE THORACIC SPINE DONE ON 04/15/16 SHOWS DEGENERATIVE CHANGES. 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 CORTEZ'S PAIN MANAGEMENT CASE. AT THIS TIME THE PATIENT WILL CONTINUE USING THE SAME MEDICATION REGIME BEFORE. PATIENT IS USING THE NUCYNTA FOR THE SOMATIC PAIN. I ADVISED THE PATIENT TO STOP THE MEDICATION IF SHE HAS ANY ADVERSE SIDE EFFECTS. ALSO TOLD THE PATIENT TO CALL WHEN SHE HAS 1 WEEK LEFT OF HER MEDICATIONS SO SHE CAN GET A REFILL. MRS. CORTEZ WILL FOLLOWUP WITH ESTRELLA IBARRA NP IN 6 WEEKS. INSTRUCTIONS WERE GIVEN, QUESTIONS WERE ANSWERED, PATIENT REPORTS UNDERSTANDING AND AGREES WITH THE PLAN. I, RACHAEL BUSBY, DOCUMENTED THE ABOVE INFORMATION ACTING A SCRIBE FOR DR. ORTEGA. I HAVE REVIEWED THE ABOVE DOCUMENT, WRITTEN BY RACHAEL QUARLESIBFer AND I VERIFY THAT IT IS ACCURATE. PROCEDURE CODES FA211 ESTABILISHED PATIENT [facility] FACILITY CHARGE [id number] OFFICE/OUTPATIENT VISIT EST G8427 DOC MEDS VERIFIED W/PT OR RE G8730 PAIN ASSESS POS TOOL F/U PLAN DOC DISPOSITION & COMMUNICATION FOLLOW UP 6 WEEKS ELECTRONICALLY SIGNED BY EVAN ORTEGA MD ON 04/30/2017 AT 08:31 PM EDT DISCLAIMER : THIS IS A VISIT SUMMARY EXTRACTED FROM THE [employer] CHART. IT IS NOT A COPY OF THE [employer] PROGRESS NOTE. LEIGHA
== END ==
LOC: M PAIN 14:00
PROVIDERS: ATTEND Anesthesiology
DX: G89.29 Other chronic pain (principal); M47.817 Spondylosis without myelopathy or radiculopathy, lumbosacral region; M47.816 Spondylosis without myelopathy or radiculopathy, lumbar region; M51.16 Intervertebral disc disorders with radiculopathy, lumbar region; M51.17 Intervertebral disc disorders with radiculopathy, lumbosacral region; K21.9 Gastro-esophageal reflux disease without esophagitis; I10 Essential (primary) hypertension; F41.9 Anxiety disorder, unspecified; I25.2 Old myocardial infarction; M19.90 Unspecified osteoarthritis, unspecified site; Z88.5 Allergy status to narcotic agent; Z88.2 Allergy status to sulfonamides; Z88.1 Allergy status to other antibiotic agents; Z88.8 Allergy status to other drugs, medicaments and biological substances; Z79.01 Long term (current) use of anticoagulants; Z79.899 Other long term (current) drug therapy

== ENCOUNTER → 2017-05-25 | Outpatient (CLI) | payer MEDICARE ==
--- NOTE | 2017-06-14 01:10 | ECWPNPC ---
PATIENT NAME: SHELBIE CORTEZ : 1930 GENDER: FEMALE VISIT DATE: 05/25/2017 DISCHARGE DATE: 05/25/17930 VISIT LOCKED DATE TIME: PHYSICIAN: ESTRELLA SCHMIDT RESOURCE: ESTRELLA SCHMIDT REASON FOR APPOINTMENT 1. 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 PAIN THE PATIENT DESCRIBES THE PAIN... FALL RISK SCREENING: SCREENING :NO FALLS IN THE PAST YEAR CURRENT MEDICATIONS TAKING CELEBREX 100 MG CAPSULE 1 CAPSULE ORALLY FOR PAIN ONCE A DAY TAKING TYLENOL 500 MG TABLET 2 TABLET NEEDED ORALLY 3 TIMES A DAY NEEDED TAKING CALCIUM 600 MG TABLET 1 TABLET WITH MEALS ORALLY TWICE A DAY TAKING FELODIPINE ER 5 MG TABLET EXTENDED RELEASE 24 HOUR 1 TABLET ORALLY ONCE A DAY TAKING METOPROLOL SUCCINATE ER 50 MG TABLET EXTENDED RELEASE 24 HOUR 1 TABLET ORALLY BID TAKING CITALOPRAM HYDROBROMIDE 10 MG TABLET 1 TABLET ORALLY ONCE A DAY TAKING VISION FORMULA TABLET 1 TABLET ORALLY DAILY TAKING GAS-X 125 MG CAPSULE 1 CAPSULE AFTER MEALS AND AT BEDTIME NEEDED ORALLY FOUR TIMES A DAY TAKING PROBIOTIC CAPSULE 1 TABLET ORALLY DAILY TAKING XARELTO 20 MG TABLET 1 TABLET WITH FOOD ORALLY ONCE A DAY TAKING NUCYNTA 50 MG TABLET 1 TO 2 TABLET ORALLY EVERY 4 HRS NEEDED FOR PAIN MDD4 TAKING FLONASE 50 MCG/ACT SUSPENSION 1 SPRAY IN EACH NOSTRIL NASALLY ONCE A DAY NOT-TAKING TRAMADOL HCL 50 MG TABLET 1 TABLET NEEDED ORALLY FOR PAIN EVERY 6 HRS MDD2 NOT-TAKING GABAPENTIN 300 MG CAPSULE 1 CAPSULE ORALLY THREE TIMES DAILY FOR PAIN MDD3, NOTES: HAS RUN OUT NOT-TAKING ULTRACET 37.5-325 MG TABLET 1 TABLETS NEEDED ORALLY EVERY 6 HRS FOR PAIN MDD4 DISCONTINUED ASPIRIN ADULT LOW STRENGTH 81 MG TABLET DELAYED RELEASE 1 TABLET ORALLY ONCE A DAY DISCONTINUED CETIRIZINE HCL 10 MG TABLET 1 TABLET NEEDED ORALLY ONCE A DAY UNKNOWN IBUPROFEN 200 MG TABLET 3 TABLET NEEDED ORALLY 3 TIMES A DAY NEEDED MEDICATION LIST REVIEWED AND RECONCILED WITH THE PATIENT PAST MEDICAL HISTORY TACHYCARDIA SYNCOPE IN 2013 - FIRST DEGREE AV BLOCK GERD HTN SPINAL STENOSIS ANXIETY MILD STROKE ARTHRITIS ALLERGIES MORPHINE SULFATE: HIVES: ALLERGY ENALAPRIL: NAUSEA/VOMITING: SIDE EFFECTS ULTRAM: NAUSEA/VOMITING: SIDE EFFECTS BENICAR: NAUSEA/VOMITING: SIDE EFFECTS CODEINE SULFATE: NAUSEA: SIDE EFFECTS CIPROFLOXACIN: NAUSEA: SIDE EFFECTS SULFA (FOR ALLERGY USE ONLY): NAUSEA: SIDE EFFECTS BACTRIM: NAUSEA: SIDE EFFECTS OXYCODONE-ACETAMINOPHEN: NAUSEA/VOMITING: SIDE EFFECTS SOCIAL HISTORY GENERAL: TOBACCO USE ARE YOU A:[facility] PFS, CLERGY, PUBLIC HEALTH REFERRALS PFS REFERRAL NEEDED?NO CLERGY REFERRAL NEEDED?NO PUBLIC HEALTH REFERRAL NEEDED?NO WAS THE PROVIDER NOTIFIED OF ANY PERTINENT INFO?NO HAS THE PATIENT BEEN EDUCATED REGARDING HIS/HER PLAN OF CARE?YES HAS THE PATIENT BEEN EDUCATED REGARDING PAIN, THE RISK FOR PAIN, THE IMPORTANCE OF EFFECTIVE PAIN MANAGEMENT, AND THE PAIN ASSESSMENT PROCESS?YES PATIENT: ____. REVIEW OF SYSTEMS REVIEWED BY: PROVIDER: ESTRELLA MARTINI . CONSTITUTIONAL: ANY CHANGE IN YOUR MEDICAL CONDITION? NO . CHILLS NO . FEVER NO . INFECTION: DO YOU HAVE NEW INFECTIONS? NO . DO YOU HAVE HISTORY OF MRSA? NO . MUSCULOSKELETAL: ANY NEW PATTERNS OF PAIN OR NUMBNESS? YES PT REPORTS INCREASED PAIN IN BOTH SHOULDERS . GASTROENTEROLOGY: ANY NEW CHANGE IN BOWEL CONTROL? NO . GENITOURINARY: ANY NEW CHANGE IN BLADDER CONTROL? NO . IS THERE A CHANCE YOU COULD BE ? NO . HEMATOLOGY/LYMPH: DO YOU TAKE ANY BLOOD THINNERS? (FOR EXAMPLE- COUMADIN, PLAVIX, AGGRENOX, PLATEL, PRADAXA, OR XARELTO) NO . WHEN WAS YOUR LAST DOSE? DATE: TIME: . NEUROLOGY: HAVE YOU FALLEN IN THE PAST 6 MONTHS? NO . ANY NEW EXTREMITY NUMBNESS OR WEAKNESS? NO . CARDIOLOGY: DO YOU HAVE A PACEMAKER OR DEFIBRILLATOR? NO . RESPIRATORY: HAVE YOU BEEN SICK IN THE PAST WEEK? NO . FEVER NO . FLU LIKE SYMPTOMS? NO . COUGH NO . INTEGUMENTARY: DO YOU HAVE ANY RASHES OR OPEN SORES? NO . ALLERGIC/IMMUNO: ARE YOU ALLERGIC TO SHELLFISH OR IV DYE? NO . ANY NEW ALLERGIES? NO . PSYCHIATRIC: DO YOU HAVE THOUGHTS OF HURTING YOURSELF OR SOMEONE ELSE? NO . ARE YOU ABUSED, NEGLECTED, OR IN AN UNSAFE ENVIRONMENT? NO . ENDOCRINOLOGY: ARE YOU DIABETIC? NO . OTHER: DO YOU NEED ANY PRESCRIPTIONS? NO . IF YES, PLEASE LIST: ____ . ANY NEW PROBLEMS WITH YOUR MEDICATIONS? NO . WHEN DID YOU LAST EAT? ____ . WHEN DID YOU LAST DRINK? ____ . WHAT DID YOU LAST DRINK? ____ . NAME OF PERSON DRIVING YOU HOME? ____ . DO YOU HAVE ANY OTHER QUESTIONS OR CONCERNS NO . VITAL SIGNS WT 135.6 LBS, HT 61 IN, BMI 25.62 INDEX, BP 152/100 MM HG, HR 75 /MIN, RR 18 /MIN, TEMP 97.2 F, OXYGEN SAT % 98%, SAFE IN ENV? (Y/N) Y, REVIEWED BY: LIANA. EXAMINATION GENERAL EXAMINATION: HEENT:HEAD:, NORMOCEPHALIC, EYES:, EYES NORMAL, NOSE:, NOSE CLEAR, THROAT: NORMAL. LUNGS:LUNG SOUNDS ARE CLEAR. HEART:HEART RATE REGULAR. ABDOMEN:SOFT AND NOT TENDER, NON-DISTENDED. MUSCULOSKELETAL:*. LUMBAR SACRAL SPINEMUSCLE STRENGTH TESTING 5/5 BILATERAL, PALPATION: POSITIVE FOR PAIN OVER L/S SPINE. POSITIVEROJM TESTING WITH + INCREASE IN PAIN. NORMAL STEADY GAIT.. SKIN:NORMAL, NO RASH. NEUROLOGIC EXAM:ALERT AND ORIENTED X 3, DTRS 1-2+ IN ALL 4 EXTREMITIES, DENIES UPPER EXTREMETIES SENSORY LOSS, DENIES LOWER EXTREMETIES SENSORY LOSS. DIAGNOSTIC:MRI L/S [id number]-REVIEWED . MULTI LEVEL MODERATE TO SEVERE SPINAL STENOSIS.. 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 PROCEDURE CODES FA211 ESTABILISHED PATIENT [facility] CHARGE G8730 PAIN ASSESS POS TOOL F/U PLAN DOC G8427 DOC MEDS VERIFIED W/PT OR RE DISPOSITION & COMMUNICATION FOLLOW UP 4 WEEKS ELECTRONICALLY SIGNED BY VINI ELLIOTT ON 06/13/2017 AT 06:53 PM EDT DISCLAIMER : THIS IS A VISIT SUMMARY EXTRACTED FROM THE [facility] CHART. IT IS NOT A COPY OF THE [facility] PROGRESS NOTE. LEIGHA
== END ==
LOC: M PAIN 08:30
PROVIDERS: ATTEND Nurse Practitioner Family
DX: G89.29 Other chronic pain (principal); M48.06 Spinal stenosis, lumbar region; M51.16 Intervertebral disc disorders with radiculopathy, lumbar region; K21.9 Gastro-esophageal reflux disease without esophagitis; I10 Essential (primary) hypertension; F41.9 Anxiety disorder, unspecified; I25.2 Old myocardial infarction; Z88.1 Allergy status to other antibiotic agents; Z88.2 Allergy status to sulfonamides; Z88.5 Allergy status to narcotic agent; Z88.8 Allergy status to other drugs, medicaments and biological substances; Z79.899 Other long term (current) drug therapy

== ENCOUNTER → 2017-09-11 | Outpatient (CLI) | payer MEDICARE | LOC: M PAIN 08:30 | DX: G89.29 Other chronic pain (principal); M48.061 Spinal stenosis, lumbar region without neurogenic claudication; M51.16 Intervertebral disc disorders with radiculopathy, lumbar region; I10 Essential (primary) hypertension; K21.9 Gastro-esophageal reflux disease without esophagitis; F41.9 Anxiety disorder, unspecified; Z79.899 Other long term (current) drug therapy; Z88.2 Allergy status to sulfonamides; Z88.1 Allergy status to other antibiotic agents; Z88.5 Allergy status to narcotic agent; Z88.8 Allergy status to other drugs, medicaments and biological substances; Z86.73 Personal history of transient ischemic attack (TIA), and cerebral infarction without residual deficits; Z86.79 Personal history of other diseases of the circulatory system | CPT/HCPCS: G0463 ==

== ENCOUNTER → 2017-10-15 | Outpatient (REF) | payer MEDICARE | LOC: M LAB REF 09:02 | DX: N39.0 Urinary tract infection, site not specified (principal) | CPT/HCPCS: 87088; 87186 ==

== ENCOUNTER → 2017-11-05 | Outpatient (REF) | payer MEDICARE | LOC: M LAB REF 16:10 | DX: R30.0 Dysuria (principal) | CPT/HCPCS: 87086 ==

== ENCOUNTER → 2017-12-26 | Outpatient (CLI) | payer MEDICARE | LOC: M PAIN 09:00 | DX: M48.061 Spinal stenosis, lumbar region without neurogenic claudication (principal); M51.16 Intervertebral disc disorders with radiculopathy, lumbar region; G89.29 Other chronic pain; I10 Essential (primary) hypertension; F41.9 Anxiety disorder, unspecified; M19.90 Unspecified osteoarthritis, unspecified site; Z79.01 Long term (current) use of anticoagulants; Z79.899 Other long term (current) drug therapy; Z88.1 Allergy status to other antibiotic agents; Z88.2 Allergy status to sulfonamides; Z88.5 Allergy status to narcotic agent; Z88.8 Allergy status to other drugs, medicaments and biological substances; Z86.79 Personal history of other diseases of the circulatory system; Z86.73 Personal history of transient ischemic attack (TIA), and cerebral infarction without residual deficits | CPT/HCPCS: G0463 ==

== ENCOUNTER → 2018-01-30 | Outpatient (CLI) | payer MEDICARE | LOC: M PAIN 09:00 | DX: M48.061 Spinal stenosis, lumbar region without neurogenic claudication (principal); M51.16 Intervertebral disc disorders with radiculopathy, lumbar region; G89.29 Other chronic pain; I10 Essential (primary) hypertension; F41.9 Anxiety disorder, unspecified; M19.90 Unspecified osteoarthritis, unspecified site; I48.91 Unspecified atrial fibrillation; Z79.01 Long term (current) use of anticoagulants; Z79.899 Other long term (current) drug therapy; Z88.1 Allergy status to other antibiotic agents; Z88.2 Allergy status to sulfonamides; Z88.5 Allergy status to narcotic agent; Z88.8 Allergy status to other drugs, medicaments and biological substances; Z86.73 Personal history of transient ischemic attack (TIA), and cerebral infarction without residual deficits; Z86.79 Personal history of other diseases of the circulatory system | CPT/HCPCS: G0463 ==

== ENCOUNTER → 2018-02-05 | Outpatient (REF) | payer MEDICARE | LOC: M LAB REF 11:53 | DX: N39.0 Urinary tract infection, site not specified (principal) | CPT/HCPCS: 87088; 87186 ==

== ENCOUNTER → 2018-02-15 | Outpatient (REF) | payer MEDICARE | LOC: M LAB REF 12:50 | DX: N39.0 Urinary tract infection, site not specified (principal) | CPT/HCPCS: 87186 ==

== ENCOUNTER → 2018-03-01 | Outpatient (CLI) | payer MEDICARE | LOC: M PAIN 09:15 | DX: M48.061 Spinal stenosis, lumbar region without neurogenic claudication (principal); M51.16 Intervertebral disc disorders with radiculopathy, lumbar region; G89.29 Other chronic pain; K21.9 Gastro-esophageal reflux disease without esophagitis; I10 Essential (primary) hypertension; F41.9 Anxiety disorder, unspecified; I48.91 Unspecified atrial fibrillation; M19.90 Unspecified osteoarthritis, unspecified site; Z79.01 Long term (current) use of anticoagulants; Z79.899 Other long term (current) drug therapy; Z88.1 Allergy status to other antibiotic agents; Z88.2 Allergy status to sulfonamides; Z88.5 Allergy status to narcotic agent; Z88.8 Allergy status to other drugs, medicaments and biological substances; Z86.73 Personal history of transient ischemic attack (TIA), and cerebral infarction without residual deficits; Z86.79 Personal history of other diseases of the circulatory system | CPT/HCPCS: G0463 ==

== ENCOUNTER 2018-05-19 09:09 | Inpatient (IN) | payer MEDICARE ==
[2018-05-19 10:29] LABS: BASO % 0.3 % (0.0-1.0); EOS # 0.1 10^3/uL (0.0-0.50); EOS % 0.9 % (0.0-3.0); HEMATOCRIT 38.7 % (36.0-47.0); IMMATURE GRANULOCYTE % 0.4 % (0-3.0); LYMPH # 1.5 10^3/uL (1.5-4.5); LYMPH % 22.8 % (24.0-44.0); MEAN CORPUSCULAR HEMOGLOBIN 34.9 pg (27.0-33.0); MEAN CORPUSCULAR HGB CONC 33.6 g/dl (32.0-36.5); MONO # 0.6 10^3/uL (0.0-0.8); MONO % 8.3 % (0.0-5.0); NEUTROPHILS # 4.5 10^3/uL (1.8-7.7); NEUTROPHILS % 67.3 % (36.0-66.0); PLATELET COUNT, AUTOMATED 220 10^3/uL (150-450); RED BLOOD COUNT 3.72 10^6/uL (4.00-5.40); RED CELL DISTRIBUTION WIDTH 12.4 % (11.5-14.5); WHITE BLOOD COUNT 6.7 10^3/uL (4.0-10.0)
[2018-05-19 11:02] LABS: INR 1.64; PROTHROMBIN TIME 19.7 SECONDS (12.1-14.4)
[2018-05-19 11:11] LABS: ANION GAP 6 MEQ/L (8-16); BLOOD UREA NITROGEN 22 MG/DL (7-18); CALCIUM LEVEL 8.8 MG/DL (8.8-10.2); CARBON DIOXIDE LEVEL 28 MEQ/L (21-32); CHLORIDE LEVEL 100 MEQ/L (98-107); CK-MB VALUE MASS < 1.0 NG/ML (<3.6); CPK CREATINE PHOSPHOKINASE 68 U/L (26-192); CREATININE FOR GFR 1.19 MG/DL (0.55-1.30); GLOMERULAR FILTRATION RATE 45.5 (>32); GLUCOSE, FASTING 104 MG/DL (70-100); MAGNESIUM LEVEL 2.1 MG/DL (1.8-2.4); MB/CK RELATIVE INDEX 1.47 (< OR =4); POTASSIUM SERUM 4.7 MEQ/L (3.5-5.1); SODIUM LEVEL 134 MEQ/L (136-145); TROPONIN I < 0.02 NG/ML (< 0.10)
[2018-05-19] MEDS: ACETAMINOPHEN TAB 650MG DOSE (2X325MG) PO ×2 (15:12→21:46)
[2018-05-19] MEDS: RIVAROXABAN 15 MG TAB (XARELTO) PO (18:27)
[2018-05-19] MEDS ORDERED: SLF 3 ML SYR IV (18:30)
[2018-05-19 18:36] LABS: APPEARANCE, URINE CLEAR (CLEAR); BACTERIA, URINE AUTO NEGATIVE (NEGATIVE); BILIRUBIN, URINE AUTO NEGATIVE (NEGATIVE); BLOOD, URINE BLOOD NEGATIVE (NEGATIVE); COLOR, URINE STRAW (YELLOW); GLUCOSE, URINE (UA) AUTO NEGATIVE (NEGATIVE); KETONE, URINE AUTO NEGATIVE (NEGATIVE); LEUKOCYTE ESTERASE, URINE AUTO NEGATIVE (NEGATIVE); NITRITE, URINE AUTO NEGATIVE (NEGATIVE); PROTEIN, URINE AUTO NEGATIVE (NEGATIVE); RBC, URINE AUTO 1 /HPF (0-3); SPECIFIC GRAVITY URINE AUTO 1.008 (1.002-1.035); SQUAMOUS EPITHELIAL CELL UR AU 1 /HPF (0-6); UROBILINOGEN, URINE AUTO 0.2 mg/dL (0.0-2.0); WBC, URINE AUTO 4 /HPF (0-3)
[2018-05-19 18:40] LABS: CK-MB VALUE MASS < 1.0 NG/ML (<3.6); CPK CREATINE PHOSPHOKINASE 67 U/L (26-192); MB/CK RELATIVE INDEX 1.49 (< OR =4); TROPONIN I < 0.02 NG/ML (< 0.10)
[2018-05-19] MEDS: TAPENTADOL 50 MG TABLET (NUCYNTA) PO (21:45)
[2018-05-19] MEDS: METOPROLOL TART 50 MG TAB PO (21:46)
[2018-05-19] MEDS: SLF 3 ML SYR IV (21:47)
[2018-05-19] MEDS: ALPRAZolam 0.25 MG TAB PO (22:29)
[2018-05-20] MEDS: SLF 3 ML SYR IV ×3 (05:24→22:00)
[2018-05-20 05:38] LABS: HEMATOCRIT 36.9 % (36.0-47.0); HEMOGLOBIN 12.5 g/dl (12.0-15.5); MEAN CORPUSCULAR HEMOGLOBIN 35.1 pg (27.0-33.0); MEAN CORPUSCULAR HGB CONC 33.9 g/dl (32.0-36.5); MEAN CORPUSCULAR VOLUME 103.7 fl (80.0-96.0); PLATELET COUNT, AUTOMATED 202 10^3/uL (150-450); RED BLOOD COUNT 3.56 10^6/uL (4.00-5.40); RED CELL DISTRIBUTION WIDTH 12.3 % (11.5-14.5)
[2018-05-20 06:05] LABS: ANION GAP 7 MEQ/L (8-16); BLOOD UREA NITROGEN 17 MG/DL (7-18); CALCIUM LEVEL 8.3 MG/DL (8.8-10.2); CARBON DIOXIDE LEVEL 26 MEQ/L (21-32); CHLORIDE LEVEL 103 MEQ/L (98-107); CK-MB VALUE MASS < 1.0 NG/ML (<3.6); CPK CREATINE PHOSPHOKINASE 36 U/L (26-192); CREATININE FOR GFR 0.88 MG/DL (0.55-1.30); GLOMERULAR FILTRATION RATE > 60.0 (>32); GLUCOSE, FASTING 89 MG/DL (70-100); MAGNESIUM LEVEL 2.1 MG/DL (1.8-2.4); MB/CK RELATIVE INDEX 2.78 (< OR =4); POTASSIUM SERUM 4.2 MEQ/L (3.5-5.1); SODIUM LEVEL 136 MEQ/L (136-145); TROPONIN I < 0.02 NG/ML (< 0.10)
[2018-05-20] MEDS: METOPROLOL TART 25 MG TABLET PO ×2 (08:57→20:17)
[2018-05-20] MEDS: ESCITALOPRAM OXALATE 10 MG TAB (LEXAPRO) PO (08:57)
[2018-05-20] MEDS: TAPENTADOL 50 MG TABLET (NUCYNTA) PO ×2 (09:32→20:16)
[2018-05-20] MEDS: INFLUENZA VIRUS VACCINE HIGH DOSE 0.5 ML SYRINGE (90662) IM (11:00)
[2018-05-20] MEDS ORDERED: SLF 3 ML SYR IV ×2 (14:15→22:00)
[2018-05-20] MEDS: ACETAMINOPHEN TAB 650MG DOSE (2X325MG) PO ×2 (14:26→20:17)
[2018-05-20] MEDS: RIVAROXABAN 15 MG TAB (XARELTO) PO (18:42)
[2018-05-21 05:53] LABS: HEMATOCRIT 36.8 % (36.0-47.0); HEMOGLOBIN 12.5 g/dl (12.0-15.5); MEAN CORPUSCULAR HEMOGLOBIN 35.4 pg (27.0-33.0); MEAN CORPUSCULAR VOLUME 104.2 fl (80.0-96.0); PLATELET COUNT, AUTOMATED 190 10^3/uL (150-450); RED BLOOD COUNT 3.53 10^6/uL (4.00-5.40); RED CELL DISTRIBUTION WIDTH 12.2 % (11.5-14.5); WHITE BLOOD COUNT 4.4 10^3/uL (4.0-10.0)
[2018-05-21] MEDS: SLF 3 ML SYR IV (05:59)
[2018-05-21 06:17] LABS: ANION GAP 6 MEQ/L (8-16); BLOOD UREA NITROGEN 19 MG/DL (7-18); CALCIUM LEVEL 8.1 MG/DL (8.8-10.2); CARBON DIOXIDE LEVEL 25 MEQ/L (21-32); CHLORIDE LEVEL 104 MEQ/L (98-107); CREATININE FOR GFR 0.91 MG/DL (0.55-1.30); GLOMERULAR FILTRATION RATE > 60.0 (>32); GLUCOSE, FASTING 88 MG/DL (70-100); POTASSIUM SERUM 4.1 MEQ/L (3.5-5.1); SODIUM LEVEL 135 MEQ/L (136-145)
[2018-05-21] MEDS: ONDANSETRON 4MG/2ML VIAL (J2405) IV (07:47)
[2018-05-21] MEDS: METOPROLOL TART 25 MG TABLET PO (08:47)
[2018-05-21] MEDS: TAPENTADOL 50 MG TABLET (NUCYNTA) PO (08:47)
[2018-05-21] MEDS: ESCITALOPRAM OXALATE 10 MG TAB (LEXAPRO) PO (08:47)
[2018-05-21] MEDS: ACETAMINOPHEN TAB 650MG DOSE (2X325MG) PO (10:31)
== END 2018-05-21 14:32 | disposition home or self-care (01) | DRG 312 ==
LOC: M ED 09:09 → M ED INP 13:39 → M PCU 18:21
DX: R55 Syncope and collapse (principal); I50.32 Chronic diastolic (congestive) heart failure; I13.0 Hypertensive heart and chronic kidney disease with heart failure and stage 1 through stage 4 chronic kidney disease, or unspecified chronic kidney disease; I48.91 Unspecified atrial fibrillation; K21.9 Gastro-esophageal reflux disease without esophagitis; N18.3 Chronic kidney disease, stage 3 (moderate); G89.29 Other chronic pain; I34.1 Nonrheumatic mitral (valve) prolapse; M48.00 Spinal stenosis, site unspecified; R33.9 Retention of urine, unspecified; G43.709 Chronic migraine without aura, not intractable, without status migrainosus; Z90.49 Acquired absence of other specified parts of digestive tract; Z90.710 Acquired absence of both cervix and uterus; Z96.642 Presence of left artificial hip joint; Z96.0 Presence of urogenital implants; Z79.01 Long term (current) use of anticoagulants; Z79.51 Long term (current) use of inhaled steroids; Z79.899 Other long term (current) drug therapy; Z88.1 Allergy status to other antibiotic agents; Z88.5 Allergy status to narcotic agent

== ENCOUNTER → 2018-05-25 | Outpatient (CLI) | payer MEDICARE | LOC: M WUC 12:56 | DX: R30.0 Dysuria (principal) | CPT/HCPCS: 87086 ==

== ENCOUNTER → 2018-05-31 | Outpatient (CLI) | payer MEDICARE | LOC: M PAIN 09:45 | DX: M48.061 Spinal stenosis, lumbar region without neurogenic claudication (principal); G89.29 Other chronic pain; I10 Essential (primary) hypertension; F41.9 Anxiety disorder, unspecified; Z79.01 Long term (current) use of anticoagulants; Z79.899 Other long term (current) drug therapy; Z88.1 Allergy status to other antibiotic agents; Z88.2 Allergy status to sulfonamides; Z88.5 Allergy status to narcotic agent; Z88.8 Allergy status to other drugs, medicaments and biological substances; Z86.79 Personal history of other diseases of the circulatory system; Z86.73 Personal history of transient ischemic attack (TIA), and cerebral infarction without residual deficits | CPT/HCPCS: G0463 ==

== ENCOUNTER 2018-07-16 15:59 | Inpatient (IN) | payer MEDICARE ==
[2018-07-16 17:05] LABS: BASO % 0.3 % (0.0-1.0); HEMATOCRIT 39.8 % (36.0-47.0); HEMOGLOBIN 13.2 g/dl (12.0-15.5); IMMATURE GRANULOCYTE % 0.7 % (0-3.0); LYMPH % 12.7 % (24.0-44.0); MEAN CORPUSCULAR HGB CONC 33.2 g/dl (32.0-36.5); MEAN CORPUSCULAR VOLUME 108.4 fl (80.0-96.0); MONO % 13.3 % (0.0-5.0); NEUTROPHILS # 5.5 10^3/uL (1.8-7.7); PLATELET COUNT, AUTOMATED 236 10^3/uL (150-450); RED BLOOD COUNT 3.67 10^6/uL (4.00-5.40); RED CELL DISTRIBUTION WIDTH 14.3 % (11.5-14.5); WHITE BLOOD COUNT 7.5 10^3/uL (4.0-10.0)
[2018-07-16 17:15] LABS: INR 1.68
[2018-07-16] MEDS: METOPROLOL TART 50 MG TAB PO ×2 (17:23→23:51)
[2018-07-16] MEDS: METOPROLOL 5 MG/5 ML VIAL IV ×6 (17:25→18:40)
[2018-07-16 17:32] LABS: ANION GAP 8 MEQ/L (8-16); BLOOD UREA NITROGEN 39 MG/DL (7-18); CARBON DIOXIDE LEVEL 26 MEQ/L (21-32); CHLORIDE LEVEL 103 MEQ/L (98-107); CPK CREATINE PHOSPHOKINASE 50 U/L (26-192); CREATININE FOR GFR 1.23 MG/DL (0.55-1.30); FREE T4 1.36 NG/DL (0.76-1.46); GLOMERULAR FILTRATION RATE 43.8 (>32); GLUCOSE, FASTING 140 MG/DL (70-100); NT-PRO BNP 17719 PG/ML (<450); POTASSIUM SERUM 4.6 MEQ/L (3.5-5.1); SODIUM LEVEL 137 MEQ/L (136-145); TROPONIN I 0.02 NG/ML (< 0.10)
[2018-07-16] MEDS: FUROSEMIDE 40 MG/4 ML VIAL (J1940) IV ×2 (18:15→23:55)
[2018-07-16 18:21] LABS: AMORPHOUS SEDIMENT RFX MODERATE (NEGATIVE); KETONE, URINE AUTO RFX NEGATIVE (NEGATIVE); LEUKOCYTE ESTERASE UR AUTO RFX NEGATIVE (NEGATIVE); MUCUS, URINE RFX SMALL (NEGATIVE); NITRITE, URINE AUTO RFX NEGATIVE (NEGATIVE); RBC, URINE AUTO RFX 4 /HPF (0-3); SPECIFIC GRAVITY UR AUTO RFX 1.023 (1.002-1.035); SQUAM EPITHELIAL CELL UR AURFX 1 /HPF (0-6); WBC, URINE AUTO RFX 3 /HPF (0-3)
[2018-07-16] MEDS: traZODone 25MG PER 1/2 TABLET PO (21:06)
[2018-07-17 00:45] LABS: CPK CREATINE PHOSPHOKINASE 49 U/L (26-192); TROPONIN I < 0.02 NG/ML (< 0.10)
[2018-07-17] MEDS: FUROSEMIDE 40 MG/4 ML VIAL (J1940) IV ×2 (06:01→11:54)
[2018-07-17] MEDS: METOPROLOL TART 50 MG TAB PO ×3 (06:01→17:18)
[2018-07-17 07:33] LABS: HEMATOCRIT 37.9 % (36.0-47.0); HEMOGLOBIN 12.6 g/dl (12.0-15.5); MEAN CORPUSCULAR HEMOGLOBIN 36.2 pg (27.0-33.0); MEAN CORPUSCULAR HGB CONC 33.2 g/dl (32.0-36.5); MEAN CORPUSCULAR VOLUME 108.9 fl (80.0-96.0); PLATELET COUNT, AUTOMATED 239 10^3/uL (150-450); RED BLOOD COUNT 3.48 10^6/uL (4.00-5.40); RED CELL DISTRIBUTION WIDTH 14.3 % (11.5-14.5); WHITE BLOOD COUNT 7.1 10^3/uL (4.0-10.0)
[2018-07-17 08:01] LABS: ANION GAP 7 MEQ/L (8-16); BLOOD UREA NITROGEN 40 MG/DL (7-18); CALCIUM LEVEL 8.3 MG/DL (8.8-10.2); CARBON DIOXIDE LEVEL 31 MEQ/L (21-32); CHLORIDE LEVEL 102 MEQ/L (98-107); CPK CREATINE PHOSPHOKINASE 48 U/L (26-192); GLOMERULAR FILTRATION RATE 34.8 (>32); GLUCOSE, FASTING 96 MG/DL (70-100); MB/CK RELATIVE INDEX 4.17 (< OR =4); POTASSIUM SERUM 3.4 MEQ/L (3.5-5.1); SODIUM LEVEL 140 MEQ/L (136-145); TROPONIN I 0.02 NG/ML (< 0.10)
[2018-07-17] MEDS: SPIRONOLACTONE 12.5MG PER 1/2 TABLET PO (09:40)
[2018-07-17] MEDS: ESCITALOPRAM OXALATE 10 MG TAB (LEXAPRO) PO (09:41)
[2018-07-17] MEDS: POTASSIUM CHLORIDE 10 MEQ SR TABLET PO (10:46)
[2018-07-17] MEDS: ACETAMINOPHEN TAB 650MG DOSE (2X325MG) PO ×2 (10:47→20:55)
[2018-07-17 16:28] LABS: CPK CREATINE PHOSPHOKINASE 105 U/L (26-192); MB/CK RELATIVE INDEX 1.71 (< OR =4); TROPONIN I < 0.02 NG/ML (< 0.10)
[2018-07-17] MEDS: RIVAROXABAN 15 MG TAB (XARELTO) PO (17:18)
[2018-07-17] MEDS ORDERED: RIVAROXABAN 20 MG TAB (XARELTO) PO (18:00)
[2018-07-17] MEDS: traZODone 25MG PER 1/2 TABLET PO (20:54)
[2018-07-18] MEDS: METOPROLOL TART 50 MG TAB PO ×4 (00:30→17:56)
[2018-07-18 06:15] LABS: HEMATOCRIT 41.6 % (36.0-47.0); MEAN CORPUSCULAR HEMOGLOBIN 36.2 pg (27.0-33.0); MEAN CORPUSCULAR HGB CONC 33.7 g/dl (32.0-36.5); MEAN CORPUSCULAR VOLUME 107.5 fl (80.0-96.0); PLATELET COUNT, AUTOMATED 249 10^3/uL (150-450); RED BLOOD COUNT 3.87 10^6/uL (4.00-5.40); RED CELL DISTRIBUTION WIDTH 14.6 % (11.5-14.5); WHITE BLOOD COUNT 6.5 10^3/uL (4.0-10.0)
[2018-07-18 08:26] LABS: ANION GAP 10 MEQ/L (8-16); BLOOD UREA NITROGEN 40 MG/DL (7-18); CALCIUM LEVEL 8.1 MG/DL (8.8-10.2); CARBON DIOXIDE LEVEL 26 MEQ/L (21-32); CHLORIDE LEVEL 103 MEQ/L (98-107); CREATININE FOR GFR 1.67 MG/DL (0.55-1.30); GLOMERULAR FILTRATION RATE 30.8 (>32); GLUCOSE, FASTING 97 MG/DL (70-100); POTASSIUM SERUM 3.7 MEQ/L (3.5-5.1); SODIUM LEVEL 139 MEQ/L (136-145)
[2018-07-18] MEDS: SPIRONOLACTONE 12.5MG PER 1/2 TABLET PO (09:15)
[2018-07-18] MEDS: ESCITALOPRAM OXALATE 10 MG TAB (LEXAPRO) PO (09:15)
[2018-07-18] MEDS: FUROSEMIDE 40 MG/4 ML VIAL (J1940) IV (09:16)
[2018-07-18] MEDS: FLUTICASONE PROP 0.05% NASAL SPRAY 16 GM (FLONASE) NARES ×2 (11:19→19:34)
[2018-07-18] MEDS: DIGOXIN 0.25 MG TAB PO ×2 (11:20→17:55)
[2018-07-18] MEDS: SODIUM CHLORIDE NASAL 0.65% SPRAY BTL (OCEAN) ×2 (15:36→19:34)
[2018-07-18] MEDS: ACETAMINOPHEN TAB 650MG DOSE (2X325MG) PO ×2 (15:41→22:33)
[2018-07-18] MEDS: RIVAROXABAN 15 MG TAB (XARELTO) PO (17:55)
[2018-07-18] MEDS: traZODone 25MG PER 1/2 TABLET PO ×2 (19:34→22:33)
[2018-07-19] MEDS: METOPROLOL TART 50 MG TAB PO ×4 (00:37→17:30)
[2018-07-19 05:39] LABS: HEMATOCRIT 42.4 % (36.0-47.0); HEMOGLOBIN 14.1 g/dl (12.0-15.5); MEAN CORPUSCULAR HEMOGLOBIN 36.4 pg (27.0-33.0); MEAN CORPUSCULAR HGB CONC 33.3 g/dl (32.0-36.5); MEAN CORPUSCULAR VOLUME 109.6 fl (80.0-96.0); PLATELET COUNT, AUTOMATED 226 10^3/uL (150-450); RED BLOOD COUNT 3.87 10^6/uL (4.00-5.40); RED CELL DISTRIBUTION WIDTH 14.1 % (11.5-14.5); WHITE BLOOD COUNT 5.4 10^3/uL (4.0-10.0)
[2018-07-19 06:02] LABS: ANION GAP 9 MEQ/L (8-16); BLOOD UREA NITROGEN 39 MG/DL (7-18); CALCIUM LEVEL 8.2 MG/DL (8.8-10.2); CARBON DIOXIDE LEVEL 26 MEQ/L (21-32); CHLORIDE LEVEL 103 MEQ/L (98-107); CREATININE FOR GFR 1.28 MG/DL (0.55-1.30); GLOMERULAR FILTRATION RATE 41.8 (>32); GLUCOSE, FASTING 104 MG/DL (70-100); POTASSIUM SERUM 3.8 MEQ/L (3.5-5.1); SODIUM LEVEL 138 MEQ/L (136-145)
[2018-07-19] MEDS: ESCITALOPRAM OXALATE 10 MG TAB (LEXAPRO) PO (08:03)
[2018-07-19] MEDS: SPIRONOLACTONE 12.5MG PER 1/2 TABLET PO (08:03)
[2018-07-19] MEDS: FUROSEMIDE 40 MG TAB PO (08:03)
[2018-07-19] MEDS: SODIUM CHLORIDE NASAL 0.65% SPRAY BTL (OCEAN) ×3 (08:04→20:22)
[2018-07-19] MEDS: FLUTICASONE PROP 0.05% NASAL SPRAY 16 GM (FLONASE) NARES ×2 (08:04→20:22)
[2018-07-19] MEDS: DIGOXIN 0.0625MG PER 1/2TABLET PO (11:49)
[2018-07-19] MEDS: ACETAMINOPHEN TAB 650MG DOSE (2X325MG) PO ×2 (12:10→20:22)
[2018-07-19] MEDS: RIVAROXABAN 15 MG TAB (XARELTO) PO (17:30)
[2018-07-19] MEDS: traZODone 25MG PER 1/2 TABLET PO (20:22)
[2018-07-20] MEDS: METOPROLOL TART 50 MG TAB PO ×3 (00:35→11:50)
[2018-07-20 05:52] LABS: HEMATOCRIT 43.7 % (36.0-47.0); HEMOGLOBIN 14.6 g/dl (12.0-15.5); MEAN CORPUSCULAR HEMOGLOBIN 36.7 pg (27.0-33.0); MEAN CORPUSCULAR HGB CONC 33.4 g/dl (32.0-36.5); MEAN CORPUSCULAR VOLUME 109.8 fl (80.0-96.0); PLATELET COUNT, AUTOMATED 246 10^3/uL (150-450); RED BLOOD COUNT 3.98 10^6/uL (4.00-5.40); WHITE BLOOD COUNT 6.1 10^3/uL (4.0-10.0)
[2018-07-20 06:26] LABS: ANION GAP 6 MEQ/L (8-16); BLOOD UREA NITROGEN 41 MG/DL (7-18); CALCIUM LEVEL 8.2 MG/DL (8.8-10.2); CARBON DIOXIDE LEVEL 31 MEQ/L (21-32); CHLORIDE LEVEL 101 MEQ/L (98-107); CREATININE FOR GFR 1.25 MG/DL (0.55-1.30); GLUCOSE, FASTING 103 MG/DL (70-100); NT-PRO BNP 5175 PG/ML (<450); POTASSIUM SERUM 3.8 MEQ/L (3.5-5.1); SODIUM LEVEL 138 MEQ/L (136-145)
[2018-07-20] MEDS: SPIRONOLACTONE 12.5MG PER 1/2 TABLET PO (08:49)
[2018-07-20] MEDS: FUROSEMIDE 40 MG TAB PO (08:49)
[2018-07-20] MEDS: ESCITALOPRAM OXALATE 10 MG TAB (LEXAPRO) PO (08:49)
[2018-07-20] MEDS: DIGOXIN 0.0625MG PER 1/2TABLET PO (08:49)
[2018-07-20] MEDS: SODIUM CHLORIDE NASAL 0.65% SPRAY BTL (OCEAN) (08:49)
[2018-07-20] MEDS: FLUTICASONE PROP 0.05% NASAL SPRAY 16 GM (FLONASE) NARES (08:49)
== END 2018-07-20 11:57 | disposition home or self-care (01) | DRG 291 ==
LOC: M ED 15:59 → M ED INP 18:15 → M PCU 20:18
DX: I13.0 Hypertensive heart and chronic kidney disease with heart failure and stage 1 through stage 4 chronic kidney disease, or unspecified chronic kidney disease (principal); I50.33 Acute on chronic diastolic (congestive) heart failure; I48.2 Chronic atrial fibrillation; F03.90 Unspecified dementia, unspecified severity, without behavioral disturbance, psychotic disturbance, mood disturbance, and anxiety; N18.3 Chronic kidney disease, stage 3 (moderate); K21.9 Gastro-esophageal reflux disease without esophagitis; Z79.899 Other long term (current) drug therapy; Z96.642 Presence of left artificial hip joint; F32.9 Major depressive disorder, single episode, unspecified; I34.0 Nonrheumatic mitral (valve) insufficiency; E87.6 Hypokalemia

== ENCOUNTER → 2018-07-28 | Outpatient (CLI) | payer MEDICARE ==
[2018-07-28 17:43] LABS: ALBUMIN 3.6 GM/DL (3.2-5.2); ALBUMIN/GLOBULIN RATIO 1.09 (1.00-1.93); ALKALINE PHOSPHATASE 84 U/L (45-117); ALT/SGPT 19 U/L (12-78); ANION GAP 9 MEQ/L (8-16); AST/SGOT 19 U/L (7-37); BILIRUBIN,TOTAL 0.5 MG/DL (0.2-1.0); BLOOD UREA NITROGEN 27 MG/DL (7-18); CALCIUM LEVEL 8.7 MG/DL (8.8-10.2); CARBON DIOXIDE LEVEL 28 MEQ/L (21-32); CHLORIDE LEVEL 98 MEQ/L (98-107); CREATININE FOR GFR 1.18 MG/DL (0.55-1.30); GLOMERULAR FILTRATION RATE 45.9 (>32); GLUCOSE, FASTING 94 MG/DL (70-100); POTASSIUM SERUM 4.9 MEQ/L (3.5-5.1); SODIUM LEVEL 135 MEQ/L (136-145); TOTAL PROTEIN 6.9 GM/DL (6.4-8.2)
== END ==
LOC: M WUC 12:53
DX: I13.0 Hypertensive heart and chronic kidney disease with heart failure and stage 1 through stage 4 chronic kidney disease, or unspecified chronic kidney disease (principal)
CPT/HCPCS: 84443